=== PATIENT | male | born 1965 | race Two or more races ===

== ENCOUNTER → 2020-11-17 14:28 | Outpatient (BNVA) | payer OTHER, SELFPAY | PROVIDERS: PCP Physician Assistant; Visit Provider Urology | DX: N52.01 Erectile dysfunction due to arterial insufficiency (principal); R35.1 Nocturia | CPT/HCPCS: 99212 ==

== ENCOUNTER → 2020-11-18 14:43 | Outpatient (BNVA) | payer OTHER, SELFPAY | PROVIDERS: PCP Physician Assistant; Visit Provider Anesthesiology | DX: M51.16 Intervertebral disc disorders with radiculopathy, lumbar region (principal); M96.1 Postlaminectomy syndrome, not elsewhere classified; Z96.89 Presence of other specified functional implants; G89.4 Chronic pain syndrome; E66.01 Morbid (severe) obesity due to excess calories; G47.33 Obstructive sleep apnea (adult) (pediatric) | CPT/HCPCS: 99202 ==

== ENCOUNTER → 2020-12-03 10:38 | Outpatient (BNVA) | payer OTHER, SELFPAY | PROVIDERS: PCP Physician Assistant; Visit Provider Anesthesiology | DX: M51.16 Intervertebral disc disorders with radiculopathy, lumbar region (principal); M96.1 Postlaminectomy syndrome, not elsewhere classified; G89.4 Chronic pain syndrome; G47.33 Obstructive sleep apnea (adult) (pediatric); E66.01 Morbid (severe) obesity due to excess calories; Z96.89 Presence of other specified functional implants | CPT/HCPCS: 99212 ==

== ENCOUNTER 2020-12-17 08:10 | Outpatient (RCR) | payer OTHER, SELFPAY | END 2020-12-17 08:21 | disposition home or self-care (01) | LOC: HO.PAOS 08:10 | PROVIDERS: Referring Provider Anesthesiology; Visit Provider Counselor Mental Health | DX: F43.23 Adjustment disorder with mixed anxiety and depressed mood (principal) | CPT/HCPCS: 90791 ==

== ENCOUNTER → 2021-01-22 09:38 | Day surgery (SDC) | payer OTHER, SELFPAY ==
--- NOTE | ~2021-01-22 | FL_ITS ---
EXAMINATION: XR FLUOROSCOPY WITH IMAGES CLINICAL INFORMATION: Spinal stimulation trial. COMPARISON: None. TECHNIQUE: Fluoroscopy performed by Dr. Owen. Fluoroscopy time: 0.2 minutes DAP: 1.31 mGycm2 Images: 3 FINDINGS: On AP and lateral fluoroscopy, there are spinal electrodes positioned in the posterior epidural space posterior to T9 and T10 vertebrae. FL/FL guidance in OR IMPRESSION: Fluoroscopy guidance was provided to Dr. Owen for spinal stimulator trial.
[2021-01-22 09:57] VITALS: BMI 40.4
[2021-01-22 10:03] LABS: MANUAL DIFF FLAG NO
[2021-01-22 10:12] LABS: Basophils Absolute Auto 0.1 X10*3/uL (0.0-0.2); Basophils Percent Auto 0.8 % (0-2); Eosinophils Absolute Auto 0.2 X10*3/uL (0.0-0.4); Eosinophils Percent Auto 3.1 % (0-4); Hematocrit 50.4 % (42-52); Hemoglobin 16.9 g/dl (14.0-18.0); Imm Gran Abs Auto 0.03 X10*3/uL (0.00-0.03); Imm Gran Pct Auto 0.4 % (0.0-0.4); Lymphocytes Absolute Auto 2.6 X10*3/uL (1.2-4.9); Lymphocytes Percent Auto 33.3 % (20-40); Mean Corpuscular HGB Conc 33.5 g/dl (31.0-36.0); Mean Corpuscular Hemoglobin 28.4 pg (27.0-33.0); Mean Corpuscular Volume 84.7 fL (80-98); Mean Platelet Volume 10.5 fL (9.4-12.4); Monocytes Absolute Auto 0.8 X10*3/uL (0.1-1.2); Monocytes Percent Auto 9.7 % (2-11); Neutrophils Absolute Auto 4.1 X10*3/uL (2.0-8.3); Neutrophils Percent Auto 52.7 % (45-73); Platelet Count 237 X10*3/uL (160-400); Red Blood Count 5.95 X10*6/uL (4.60-5.80); Red Cell Distribution Width 14.7 % (11.0-16.0); White Blood Count 7.7 X10*3/uL (4.8-10.8)
[2021-01-22 10:18] VITALS: BP 152/106; PULSE 81; RESP 16; TEMP 36.9; O2SAT 95
[2021-01-22 10:19] VITALS: BP 131/92
[2021-01-22 10:27] LABS: Alanine Aminotransferase 37 U/L (0-40); Albumin Level 4.3 g/dL (3.5-5.0); Alkaline Phosphatase 87 U/L (39-117); Anion Gap 13 (12-20); Aspartate Amino Transferase 28 U/L (5-37); Bilirubin Total 0.3 mg/dL (0.0-1.0); Blood Urea Nitrogen 17 mg/dL (9-16); Calcium 9.2 mg/dL (8.4-10.2); Carbon Dioxide 27 mmol/L (22-29); Chloride 108 mmol/L (96-108); Cholesterol 191 mg/dL; Estimated Glomerular Filt Rate > 60; Glucose Fasting 88 mg/dL (60-99); HDL Cholesterol 28 mg/dL; Sodium 144 mmol/L (135-145); Total Protein 7.5 g/dL (6.5-8.0); Triglycerides 633 mg/dL
[2021-01-22 10:31] LABS: Estimated Average Glucose 111 mg/dL; Hemoglobin A1c % 5.5 %
--- NOTE | 2021-01-22 10:48 | P.CONAN_ITS ---
[facility] Active Problems Active Problems: All Active Problems (Updated 01/21/21 @ 14:29 by Kaiden ellis PA-C) Annual physical exam (Acute) Cervical stenosis of spinal canal (Acute) Obstructive sleep apnea (Acute) Morbid obesity (Acute) Chronic pain syndrome (Acute) Postlaminectomy syndrome (Acute) Nocturia more than twice per night (Acute) Erectile dysfunction due to arterial insufficiency (Acute) Asthma (Acute) Smoker (Acute) OPHELIA (obstructive sleep apnea) (Acute) Obese (Acute) Spinal cord stimulator status (Acute) Lumbar disc disease with radiculopathy (Acute) MDD (major depressive disorder) (Acute) Insomnia (Acute) Osteoarthritis (Acute) HTN (hypertension) (Acute) Past Medical History Medical History (Updated 01/21/21 @ 14:29 by Kaiden Bell PA-C) Chronic pain syndrome Hepatitis C Morbid obesity Obstructive sleep apnea Postlaminectomy syndrome Family History Family History (Updated 01/21/21 @ 14:26 by Kaiden Bell PA-C) Father Chronic mental illness Mother No problems noted. Maternal Grandmother No problems noted. Maternal Grandfather No problems noted. Paternal Grandmother No problems noted. Paternal Grandfather No problems noted. 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 Allergies Allergy/AdvReac Type Severity Reaction Status Date / Time No Known Allergies Allergy Verified 01/21/21 14:16 Home Medications Medication Instructions Recorded Confirmed Last Taken Type alprazolam 2 mg tablet mg PO 10/20/20 01/21/21 Unknown History Exam Exam Date and Time: January 22, 2021 1048 Height,Weight and Vital Signs: Height 6 ft Weight 135.171 kg Last Vital Signs Temp 98.4 F 01/22/21 10:18 Pulse 81 01/22/21 10:18 Resp 16 01/22/21 10:18 BP 131/92 H 01/22/21 10:19 Pulse Ox 95 01/22/21 10:18 Pertinent Lab Results Pertinent Lab Results: Laboratory Tests 01/22/21 01/22/21 01/22/21 09:25 09:25 09:25 WBC 7.7 RBC 5.95 H Hgb 16.9 Hct 50.4 MCV 84.7 MCH 28.4 MCHC 33.5 RDW 14.7 Plt Count 237 MPV 10.5 Immature Gran % (Auto) 0.4 Neut % (Auto) 52.7 Lymph % (Auto) 33.3 [place] % (Auto) 9.7 Eos % (Auto) 3.1 Baso % (Auto) 0.8 Lymph # (Auto) 2.6 [place] # (Auto) 0.8 Eos # (Auto) 0.2 Baso # (Auto) 0.1 Abs Immat Gran (auto) 0.03 Absolute Neuts (auto) 4.1 Absolute Nucleated RBC 0.000 Nucleated RBC % (auto) 0.0 Sodium 144 Potassium 4.0 Chloride 108 Carbon Dioxide 27 Anion Gap 13 BUN 17 H Creatinine 1.16 Estim Creat Clear Calc 100.0 Estimated GFR > 60 Fasting Glucose 88 Estimat Average Glucose 111 Hemoglobin A1c % 5.5 Calcium 9.2 Total Bilirubin 0.3 AST 28 ALT 37 Alkaline Phosphatase 87 Total Protein 7.5 Albumin 4.3 Triglycerides 633 Cholesterol 191 LDL Cholesterol, Calc TNP HDL Cholesterol 28
[2021-01-22 10:53] LABS: Creatinine Urine 291.48 mg/dL; Microalbum/Creatinine Ratio Ur 8.2 ug/mg cr
--- NOTE | 2021-01-22 12:40 | PC.NURSE ---
patients procedure was cancelled per md barbosa. patient off unit to or4 for xrays of back only. to be rescheduled.
--- NOTE | 2021-01-22 13:10 | PC.NURSE ---
patient was discharged due to cancellation of procedure. iv removed. drink provided and called for a ride. ambulated out of here with a work note as well per patients request.
== END ==
PROVIDERS: Absent Provider Physician Assistant; PCP Physician Assistant; Visit Provider Anesthesiology
DX: M96.1 Postlaminectomy syndrome, not elsewhere classified (principal); G89.4 Chronic pain syndrome; Z53.9 Procedure and treatment not carried out, unspecified reason; I10 Essential (primary) hypertension; J45.909 Unspecified asthma, uncomplicated; Z79.899 Other long term (current) drug therapy; F17.210 Nicotine dependence, cigarettes, uncomplicated
CPT/HCPCS: 36415; 76000; 80053; 80061; 82043; 83036; 85025; J0690

== ENCOUNTER → 2021-02-11 08:13 | Outpatient (BNVA) | payer OTHER, SELFPAY | PROVIDERS: PCP Physician Assistant; Visit Provider Surgery ==

== ENCOUNTER → 2021-02-24 16:18 | Outpatient (BNVA) | payer OTHER, SELFPAY | PROVIDERS: PCP Physician Assistant; Visit Provider Anesthesiology | DX: M51.16 Intervertebral disc disorders with radiculopathy, lumbar region (principal); M96.1 Postlaminectomy syndrome, not elsewhere classified; G89.4 Chronic pain syndrome; G47.33 Obstructive sleep apnea (adult) (pediatric); E66.01 Morbid (severe) obesity due to excess calories; Z96.89 Presence of other specified functional implants; Z79.899 Other long term (current) drug therapy | CPT/HCPCS: 99212 ==

== ENCOUNTER 2021-03-05 08:11 | Outpatient (REF) | payer OTHER, SELFPAY ==
--- NOTE | ~2021-03-05 | XR_ITS ---
EXAMINATION: XR CHEST CLINICAL INFORMATION: Essential hypertension COMPARISON: None TECHNIQUE: 2 views of the chest were obtained. FINDINGS: Cardiac silhouette is normal in size. The lungs are well aerated. There is mild asymmetric elevation of the right hemidiaphragm. There is no lobar consolidation. No pleural effusion or pneumothorax. Mild scoliotic and degenerative changes of the spine. Spinal stimulator leads are partially visualized. XR/XR chest 2V IMPRESSION: No acute pulmonary pathology.
--- NOTE | 2021-03-05 09:27 | ECG_ITS ---
Test Reason : HTN Blood Pressure : / mmHG Vent. Rate : 080 BPM Atrial Rate : 080 BPM P-R Int : 162 ms QRS Dur : 090 ms QT Int : 386 ms P-R-T Axes : 022 -04 046 degrees QTc Int : 445 ms Normal sinus rhythm Cannot rule out inferior infarct Abnormal ECG No previous ECGs available Referred By: Bj Avila Electronically Signed By:Solomon Baker
[2021-03-05 10:18] LABS: MANUAL DIFF FLAG NO
[2021-03-05 10:42] LABS: Basophils Absolute Auto 0.1 X10*3/uL (0.0-0.2); Basophils Percent Auto 0.9 % (0-2); Eosinophils Absolute Auto 0.2 X10*3/uL (0.0-0.4); Eosinophils Percent Auto 3.9 % (0-4); Hematocrit 49.3 % (42-52); Hemoglobin 16.5 g/dl (14.0-18.0); Imm Gran Abs Auto 0.02 X10*3/uL (0.00-0.03); Imm Gran Pct Auto 0.4 % (0.0-0.4); Lymphocytes Percent Auto 36.4 % (20-40); Mean Corpuscular HGB Conc 33.5 g/dl (31.0-36.0); Mean Corpuscular Hemoglobin 28.2 pg (27.0-33.0); Mean Corpuscular Volume 84.3 fL (80-98); Monocytes Absolute Auto 0.6 X10*3/uL (0.1-1.2); Monocytes Percent Auto 10.1 % (2-11); Neutrophils Absolute Auto 2.7 X10*3/uL (2.0-8.3); Neutrophils Percent Auto 48.3 % (45-73); Platelet Count 209 X10*3/uL (160-400); Red Blood Count 5.85 X10*6/uL (4.60-5.80); Red Cell Distribution Width 14.4 % (11.0-16.0); White Blood Count 5.6 X10*3/uL (4.8-10.8)
[2021-03-05 10:48] LABS: Estimated Average Glucose 108 mg/dL; Hemoglobin A1C 150.9345 umol/L; Hemoglobin A1c % 5.4 %
[2021-03-05 11:04] LABS: Alanine Aminotransferase 52 U/L (0-40); Albumin Level 4.3 g/dL (3.5-5.0); Alkaline Phosphatase 72 U/L (39-117); Anion Gap 15 (12-20); Aspartate Amino Transferase 29 U/L (5-37); Bilirubin Total 0.6 mg/dL (0.0-1.0); Blood Urea Nitrogen 26 mg/dL (9-16); C Reactive Protein 0.31 mg/dL (< or = 0.50); Calcium 9.2 mg/dL (8.4-10.2); Carbon Dioxide 21 mmol/L (22-29); Chloride 106 mmol/L (96-108); Cholesterol 189 mg/dL; Estimated Glomerular Filt Rate > 60; Glucose Random 100 mg/dL (60-115); HDL Cholesterol 27 mg/dL; Potassium 3.8 mmol/L (3.3-5.1); Sodium 138 mmol/L (135-145); Total Protein 7.2 g/dL (6.5-8.0); Triglycerides 467 mg/dL
[2021-03-05 11:10] LABS: Ferritin 15 ng/mL (20-250)
[2021-03-05 11:36] LABS: Folate 7.3 ng/mL (> or = 4.0); Vitamin B12 293 pg/mL (200-900)
[2021-03-06 09:52] LABS: Insulin Level Total 48.9 uIU/mL
[2021-03-08 23:41] LABS: Zinc 82 mcg/dL (60-130)
[2021-03-09 11:37] LABS: Calcium (PTHI) 9.1 mg/dL (8.6-10.3); PTHI 19 pg/mL (14-64)
[2021-03-10 13:21] LABS: Vitamin A 42 mcg/dL (38-98)
[2021-03-11 07:26] LABS: Vitamin B1 9 nmol/L (8-30)
== END 2021-03-05 08:12 | disposition home or self-care (01) ==
LOC: HO.LAB 08:11
PROVIDERS: PCP Physician Assistant; Visit Provider Surgery
DX: E66.01 Morbid (severe) obesity due to excess calories (principal); Z68.39 Body mass index [BMI] 39.0-39.9, adult; M19.90 Unspecified osteoarthritis, unspecified site; J45.909 Unspecified asthma, uncomplicated; I10 Essential (primary) hypertension; G47.33 Obstructive sleep apnea (adult) (pediatric); G47.00 Insomnia, unspecified
CPT/HCPCS: 36415; 71046; 80053; 80061; 82306; 82607; 82728; 82746; 83036; 83525; 83970; 84425; 84443; 84590; 84630; 85025; 86140; 93005

== ENCOUNTER 2021-03-12 08:53 | Outpatient (REF) | payer OTHER, SELFPAY ==
[2021-03-13 15:12] LABS: H Pylori Breath Test NOT DETECTED (NOT DETECTED)
== END 2021-03-12 08:54 | disposition home or self-care (01) ==
LOC: HO.LNP 08:53
PROVIDERS: Surgery; PCP Physician Assistant; Visit Provider Dietitian, Registered
DX: E66.9 Obesity, unspecified (principal); Z68.39 Body mass index [BMI] 39.0-39.9, adult; Z71.3 Dietary counseling and surveillance
CPT/HCPCS: 83013; 97802; 99211

== ENCOUNTER 2021-03-25 18:44 | Outpatient (REF) | payer OTHER, SELFPAY ==
--- NOTE | ~2021-03-25 | MR_ITS ---
MR CERVICAL SPINE WITHOUT CONTRAST CLINICAL INFORMATION: Spinal stenosis/cervical region. COMPARISON: None available. TECHNIQUE: MRI of the cervical spine was obtained using routine sequences without contrast. FINDINGS: Straightening the cervical lordosis. The vertebral body heights are maintained. Mild disc volume loss at C3-C4 and C6-C7. There is no bone marrow edema. There are no acute fractures. The craniocervical junction is unremarkable. Craniocervical junction is unremarkable. The partially imaged intracranial compartment is unremarkable. There is no cord signal abnormality. The cervical arterial flow voids are maintained. There are no significant extraspinal soft tissue findings. C2-C3: Disc osteophyte eccentric to the left mildly narrows the central canal. Advanced uncovertebral joint hypertrophy and hypertrophic facet arthropathy result in moderate left-sided foraminal stenosis. C3-C4: Disc osteophyte mildly narrows the central canal. Advanced uncovertebral joint hypertrophy and hypertrophic facet arthropathy result in severe left-sided foraminal stenosis and mild right-sided foraminal stenosis. C4-C5: Disc osteophyte flattens the ventral cord, resulting in mild to moderate central canal stenosis. Advanced uncovertebral joint hypertrophy and hypertrophic facet arthropathy result in moderate to severe bilateral foraminal stenosis. C5-C6: Disc osteophyte flattens the ventral cord, resulting in mild to moderate central canal stenosis. Advanced uncovertebral joint hypertrophy and hypertrophic facet arthropathy result in severe left foraminal stenosis. Mild right foraminal encroachment. C6-C7: Disc osteophyte mildly narrows the central canal. Advanced uncovertebral joint hypertrophy and hypertrophic facet arthropathy result in severe left-sided foraminal stenosis. C7-T1: Disc osteophyte mildly narrows the central canal. There is a left foraminal disc protrusion that results in severe left-sided foraminal stenosis with compression of the exiting left C8 nerve root. Mild right foraminal stenosis. At T3-T4, there is a partially imaged right paracentral/right foraminal disc protrusion that mildly narrows the central canal and that results in moderate to severe right-sided foraminal stenosis. MR/MR cervical spine wo con IMPRESSION: - Multilevel cervical spondylosis. Multifactorial degenerative changes result in mild to moderate central canal stenosis and flattening of the cervical spinal cord at the C4-C5 and C5-C6 levels. Spondylitic changes also result in moderate left C2-C3, severe left C3-C4, moderate to severe bilateral C4-C5, severe left C5-C6, severe left C6-C7, and severe left C7-T1 foraminal stenosis. There is a soft left foraminal disc protrusion resulting in severe left foraminal stenosis at C7-T1. - At T3-T4, there is a partially imaged right paracentral/right foraminal disc protrusion that mildly narrows the central canal and that results in moderate to severe right-sided foraminal stenosis.
== END 2021-03-25 18:45 | disposition home or self-care (01) ==
LOC: HO.MRI 18:44
PROVIDERS: PCP Physician Assistant; Visit Provider Anesthesiology
DX: M48.02 Spinal stenosis, cervical region (principal)
CPT/HCPCS: 72141

== ENCOUNTER → 2021-03-26 08:18 | Outpatient (BNVA) | payer OTHER, SELFPAY | PROVIDERS: PCP Physician Assistant; Visit Provider Surgery ==

== ENCOUNTER → 2021-03-31 08:08 | Outpatient (BNVA) | payer OTHER, SELFPAY | PROVIDERS: PCP Physician Assistant; Visit Provider Dietitian, Registered ==

== ENCOUNTER → 2021-04-20 08:04 | Outpatient (BNVA) | payer OTHER, SELFPAY | PROVIDERS: PCP Physician Assistant; Visit Provider Surgery ==

== ENCOUNTER → 2021-04-21 13:40 | Outpatient (REF) | payer OTHER, SELFPAY | LOC: HO.SL 13:40 | PROVIDERS: PCP Physician Assistant; Visit Provider Physician Assistant | DX: G47.33 Obstructive sleep apnea (adult) (pediatric) (principal); E66.9 Obesity, unspecified | CPT/HCPCS: 95806 ==

== ENCOUNTER → 2021-04-23 09:57 | Outpatient (REF) | payer OTHER, SELFPAY ==
--- NOTE | ~2021-04-23 | NM_ITS ---
Lexiscan Myocardial perfusion study Indication: Preoperative evaluation, assess for coronary disease and ischemia Technique: The patient was brought in for a Lexiscan perfusion study on 04/23/2021 and was injected 0.4 mg of Lexiscan intravenously. Within a minute of this injection 45 mCi of sestamibi was given intravenously. Images were obtained using the SPECT gamma camera interlaced with the gating device. Images were obtained in supine position. Resting perfusion study was performed on 04/29/2021. Patient was administered 45 mCi of sestamibi intravenously at rest. Images were then obtained in supine position. Total DLP 169mGy-cm. Images were processed with the software and compared side to side in short axis, horizontal long axis and vertical long axis views. Findings: Raw acquisition was reviewed. The stress perfusion study showed diminished tracer uptake along the basal to mid inferior and inferolateral wall. With CT attenuation correction, this improves significantly suggesting diaphragmatic attenuation artifact. The gated study shows normal LV systolic function with calculated LVEF of 61%. LV cavity is normal in size. The gated study shows normal wall thickening and contraction of segments. Resting study shows diminished tracer uptake along the inferior and inferolateral wall. With CT attenuation correction, there is improvement and hence suggesting diaphragmatic attenuation artifact. Gating at rest reveals normal wall motion with ejection fraction at 70%. The findings are consistent with fixed perfusion defect in the basal to mid inferior and inferolateral wall suspected to be from diaphragmatic artifact. No reversible defects. NM/NM iraida perf SPECT rest & str Impression: 1. Myocardial perfusion imaging study shows no evidence of any ischemia or infarction. Likely normal perfusion. 2. Gated LVEF is 61% during stress and 70% during rest. 3. Transient ischemic dilatation not present. EKG component of the test reported separately.
--- NOTE | 2021-04-23 10:02 | CA_ITS ---
Acquisition Time: 2021-04-23 10:30:40 Total Exercise Time: 00:02:00 Test Indications: Pre-Op Evaluation, SOB, hyperten Medications: see chart Protocol: LEXISCAN Max HR: 083 BPM 50% of Pred: 163 BPM Max BP: 110/078 mmHG Max Work Load: 1.0 METS Pharamcological stress test with Lexiscan injection, while sitting and kicking his legs, without anginal symptoms, without arrythmia, with normotensive response to injection, with nondiagnostic EKG for ischemia. Nuclear images pending. Test reviewed with Dr Becerra. Referred By: Bj Avila Overread By: RICHI HALL
== END ==
LOC: HO.CARD 09:57
PROVIDERS: PCP Physician Assistant; Visit Provider Surgery
DX: Z01.818 Encounter for other preprocedural examination (principal); R94.31 Abnormal electrocardiogram [ECG] [EKG]; R06.02 Shortness of breath; I10 Essential (primary) hypertension
CPT/HCPCS: 78452; 93017; 97803; A9500; J0280; J2785

== ENCOUNTER → 2021-04-30 13:09 | Outpatient (REF) | payer OTHER, SELFPAY ==
--- NOTE | 2021-04-30 13:12 | CA_ITS ---
Transthoracic Echocardiogram Patient (Last, First, Middle): Miguel Whiting, Gender: Male Date of : 1965 Age: 55 Procedure Date: 04/30/2021 Procedure Type: Transthoracic Echocardiogram Location: OP Height: 182.88 cm Weight: 136.08 kg BSA: 2.53 m2 Heart Rate: bpm BP: 140 / 70 mmHg Bakelite Molder: ELISE Referring MD: Bj Avila MD Symptoms: R94.31 - Abnormal electrocardiogram [ECG] [EKG] Study Quality: Fair/contrast ECG Rhythm: Sinus Conclusions: - The left ventricular systolic function is normal. The calculated ejection fraction is 70% by biplane method. - There is moderately increased left ventricular wall thickness. - No obvious valvular pathology seen on this study. - There is mild dilatation of the ascending aorta measuring 3.90 cm. Findings Procedure Information Contrast agent, definity, is being given per protocol without apparent complications. Left Ventricle Normal left ventricular cavity size. There is moderately increased left ventricular wall thickness. The left ventricular systolic function is normal. The calculated ejection fraction is 70% by biplane method. There is no evidence of regional wall motion abnormalities. Diastolic function is normal for age. E/E prime ratio is <8, consistent with normal filling pressures. Right Ventricle Normal right ventricular cavity size. There is low normal right ventricular systolic function. Atria Both atria are normal in size. Aortic Valve There is a normal trileaflet aortic valve. There is no aortic valve stenosis. There is no aortic valve regurgitation. Mitral Valve The mitral valve appears normal. There is no mitral valve regurgitation. There is no mitral valve stenosis. Pulmonic Valve The pulmonic valve was not well visualized. Tricuspid Valve Normal tricuspid valve structure. There is trace tricuspid valve regurgitation. The pulmonary artery systolic pressure is normal. Great Vessels There is mild dilatation of the ascending aorta measuring 3.90 cm. Venous The inferior vena cava is normal in size and collapses greater than 50% with inspiration. Pericardium/Pleural There is no evidence of pericardial effusion. Prior Study Comparison No prior study available for comparison. Recommendations, Care & Conclusions No obvious valvular pathology seen on this study. Measurements 2D Linear Measurements IVSd: 1.42 0.6-0.9/0.6-1.0 cm LVIDd: 4.61 3.9-5.3/4.2-5.9 cm LVIDd Index: 1.82 2.4-3.2/2.2-3.1 cm/m2 LVIDs: 3.05 2.0-3.6 cm LVPWd: 1.23 0.7-1.1 cm Ao Root: 4.20 2.1-3.5 cm LA Diam: 4.20 2.7-3.8/3.0-4.0 cm LAIDs Index: 1.66 1.5-2.3 cm/m2 LV Mass: 296.07 67-162/88-224 g LV Mass Index: 117.02 43-95/49-115 g/m2 LVOT Diam: 2.20 3.0+(-)1.3 cm 2D Systolic Function EF 4C: 66.50 >55% EF 2C: 71.70 >55% EF BiP: 69.80 >55% Mitral Valve MV Pk E: 0.48 MV PK A: 0.77 MV Decel Time: 298.00 E/A: 0.60 E'Lateral: 10.30 E'Medial: 5.00 E/E' Med: 9.70 E/E' Lat: 4.70 PHT: 87.00 MVA PHT: 2.53 Decel [place]: 1.62 Aortic Valve AoV Pk Paulino: 1.43 AoV Mn Paulino: 1.08 AoV VTI: 0.27 AoV Pk Grad: 8.00 Aov Mn Grad: 5.00 SHANDRA Cont.VTI: 3.46 LVOT LVOT Pk Paulino: 1.45 LVOT Mn Paulino: 0.96 LVOT VTI: 0.25 LVOT Pk Grad: 8.00 LVOT Mn Grad: 4.00 LVOT Diam: 2.20 LVOT Area: 3.80 Diastolic Function MV Pk E: 0.48 MV Pk A: 0.77 E/A: 0.60 E'Medial: 5.00 E/E' Med: 9.70 E' Laterial: 10.30 E/E' Lat: 4.70 Tricuspid Valve TR Pk Paulino: 2.13 TR Pk Grad: 18.00 RA Press: 3.00 RVSP: 21.00 Great Vessels Aorta Ao Root-2D: 4.20 2.0-3.7 cm Ao Asc: 3.90 2.1-3.4 cm Updated in Other Vendor System with Status of Final Stepan Vann MD electronically signed on 05/02/2021 12:25:14 PM with status of Final
== END ==
LOC: HO.CARD 13:09
PROVIDERS: PCP Physician Assistant; Visit Provider Surgery
DX: Z01.818 Encounter for other preprocedural examination (principal); R06.02 Shortness of breath; I10 Essential (primary) hypertension; R94.31 Abnormal electrocardiogram [ECG] [EKG]
CPT/HCPCS: 93306; Q9957

== ENCOUNTER → 2021-05-26 12:56 | Outpatient (BNVA) | payer OTHER, SELFPAY | PROVIDERS: PCP Physician Assistant; Referring Provider Physician Assistant; Visit Provider Surgery ==

== ENCOUNTER 2021-08-06 09:41 | Day surgery (SDC) | payer OTHER, SELFPAY ==
[2021-08-03 09:54] VITALS: BMI 38.2
--- NOTE | 2021-08-05 09:32 | P.CONAN_ITS ---
Documented by User: Yuni Lua NP 08/05/21 09:34 HPI - Anesthesia Eval Consult details Narrative: 55yo M for ?Lumbar Spinal Cord Stimulator Revision, Removal & Replacement spinal stim implant 01/2020 [facility] [place] Active Problems Active Problems: All Active Problems (Updated 08/03/21 @ 09:50 by Landy Shipley RN) HTN (hypertension) (Acute) Osteoarthritis (Acute) Insomnia (Acute) MDD (major depressive disorder) (Acute) Lumbar disc disease with radiculopathy (Acute) Spinal cord stimulator status (Acute) Obese (Acute) OPHELIA (obstructive sleep apnea) (Acute) Smoker (Acute) Asthma (Acute) Erectile dysfunction due to arterial insufficiency (Acute) Nocturia more than twice per night (Acute) Cervical stenosis of spinal canal (Acute) Annual physical exam (Acute) Obesity (Acute) BMI 39.0-39.9,adult (Acute) Vitamin B12 deficiency (Acute) Abnormal EKG (Acute) Adjustment disorder, unspecified (Acute) BMI 38.0-38.9,adult (Acute) Acute back pain (Acute) Obstructive sleep apnea (Acute) Morbid obesity (Acute) Chronic pain syndrome (Acute) Postlaminectomy syndrome (Acute) Past Medical History Medical History Chronic pain syndrome Hepatitis C Hx MRSA infection Morbid obesity Obstructive sleep apnea Postlaminectomy syndrome Family History Family History Father Chronic mental illness Mental health disorder Mother No problems noted. Maternal Grandmother No problems noted. Maternal Grandfather No problems noted. Paternal Grandmother No problems noted. Paternal Grandfather No problems noted. Sister Cervical cancer Surgical History Surgical History History of esophagogastroduodenoscopy (EGD) History of laminectomy History of surgery Hx of colonoscopy S/P insertion of spinal cord stimulator Social History Social History Household Members: Spouse Housing: House Alcohol intake: never Patient Tobacco Use Status: Current everyday Tobacco user Tobacco use type: Cigarette Cigarettes Per Day: 1 Years Smoked: 15 e-Cigarette/Vaping Use: Never Used Second Hand Smoke Exposure: No Are you DNR?: No Advance Directives: No Advance Directives Information Provided: No Advance Directives on File: No Current occupational status: employed 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[employer] 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 Allergies Allergy/AdvReac Type Severity Reaction Status Date / Time No Known Allergies Allergy Verified 06/29/21 15:11 Home Medications Medication Instructions Recorded Confirmed Last Taken Type alprazolam 2 mg tablet 2 mg PO BEDTIME PRN 10/20/20 08/03/21 Unknown History Exam Exam Date and Time: August 05, 2021 0932 Height,Weight and Vital Signs: Height 6 ft 1 in Weight 131.542 kg Pertinent Lab Results Pertinent Lab Results: Laboratory Tests 03/05/21 03/05/21 09:45 09:45 WBC 5.6 Hgb 16.5 Hct 49.3 Plt Count 209 Sodium 138 Potassium 3.8 Chloride 106 Carbon Dioxide 21 L BUN 26 H D Creatinine 0.98 Narrative Narrative: NM iraida perf SPECT rest & str 04/2021 Impression: ? 1.? Myocardial perfusion imaging study shows no evidence of any ischemia or infarction. Likely normal perfusion. 2.? Gated LVEF is 61% during stress and 70% during rest. 3. Transient ischemic dilatation not present. ? EKG component of the test nondiagnostic EKG for ischemia EKG 02/2021 Vent. Rate : 080 BPM ? ? Atrial Rate : 080 BPM ?? P-R Int : 162 ms? QRS Dur : 090 ms ? ? QT Int : 386 ms ? ? ? P-R-T Axes : 022 -04 046 degrees ?? QTc Int : 445 ms ? Normal sinus rhythm Cannot rule out inferior infarct Abnormal ECG No previous ECGs available ECHO 04/2021 Conclusions: - The left ventricular systolic function is normal.? The ? calculated ejection fraction is 70% by biplane method. ? - There is moderately increased left ventricular wall thickness. - No obvious valvular pathology seen on this study.? - There is mild dilatation of the ascending aorta measuring 3.90 cm.?? Assessment and Plan Assessment Anesthesia Assessment: Chart Reviewed Documented by User: Farzana Pollard MD 08/06/21 13:13 PMF Past Medical History Medical History Chronic pain syndrome Hepatitis C Hx MRSA infection Morbid obesity Obstructive sleep apnea Postlaminectomy syndrome Family History Family History Father Chronic mental illness Mental health disorder Mother No problems noted. Maternal Grandmother No problems noted. Maternal Grandfather No problems noted. Paternal Grandmother No problems noted. Paternal Grandfather No problems noted. Sister Cervical cancer Surgical History Surgical History History of esophagogastroduodenoscopy (EGD) History of laminectomy History of surgery Hx of colonoscopy S/P insertion of spinal cord stimulator History of Problems with Anesthesia: No Social History Social History Household Members: Spouse Housing: House Alcohol intake: never Patient Tobacco Use Status: Current everyday Tobacco user Tobacco use type: Cigarette Cigarettes Per Day: 1 Years Smoked: 15 e-Cigarette/Vaping Use: Never Used Second Hand Smoke Exposure: No Are you DNR?: No Advance Directives: No Advance Directives Information Provided: No Advance Directives on File: No Current occupational status: employed 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[employer] 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 Allergies Allergy/AdvReac Type Severity Reaction Status Date / Time No Known Allergies Allergy Verified 06/29/21 15:11 Home Medications Medication Instructions Recorded Confirmed Last Taken Type alprazolam 2 mg tablet 2 mg PO BEDTIME PRN 10/20/20 08/03/21 Unknown History Exam Airway Mallampati Class: III TM Dist: >3cm Neck ROM: Full Loose/Missing/Broken Teeth: No Heart: RRR Lungs: CTA Assessment and Plan Assessment Anesthesia Assessment: Anesthesia Plan Discussed Final Anesthetic Review History of Problems with Anesthesia: No NPO: Yes ASA Class: II Final Preanesthetic Review: Meds/Allgs Chart Reviewed and Consent Obtained/Reviewed Patient Risk: Low Procedure Risk: Intermediate Anesthetic Plan Anesthetic Plan: MAC: Disposition: Standard PACU
--- NOTE | 2021-08-05 21:06 | MHC.SHP ---
Pre-Procedural Eval Section A Date of Service: 08/05/21 The patient is an INPATIENT: No Changes since office visit: Yes Patient answered all questions The History & Physical has been completed within 30 days and I have reviewed it.: No Section B Chief Complaint: spinal cord stimulator status Details of Present Illness: as above Allergies: Allergies Allergy/AdvReac Type Severity Reaction Status Date / Time No Known Allergies Allergy Verified 06/29/21 15:11 Review of Systems Sugical H&P ROS: Negative: Constitution, Cardiovascular, Respiratory, Neurological, Psychiatric, Hem-Onc, Allergic/Immunologic, Gastrointestinal, Genitourinary, Musculoskeletal, Integumentary, Endocrine and Eyes/Ears/Nose/Throat Exam Surgical H&P Exam: Normal: HEENT, Normal: Heart, Normal: Lungs, Normal: Extremities, Normal: Abdomen, Normal: Skin and Normal: Neurological Plan Diagnosis/Plan: Unchanged I have reviewed the history and physical and performed a pertinent physical examination on my patient. No changes have occurred unless specified.
--- NOTE | 2021-08-05 21:07 | P.OP_ITS ---
Operative Note Operative Note Date of Service: 08/06/21 Narrative: Miguel is very pleasant 55 years old male who presented in my office with complains poorly functioning battery of spinal cord stimulator Medtronics. He reports it does not relieve his pain. I offered him to remove the battery and replace it with Nevro machine. He came today to the operating room to do revision of the old battery and replacement with the Nevro HF10 technology battery.? After a in explaining informed consent the patient was taking to the operating room where HE was positioned prone ON the OR table.? C-arm was brought of the operating field and of the spinal cord stimulating system was examined under C-arm view.? The appropriate position of the leads was noted in the posterior epidural space.? The leads were in the projection of T9-T10 vertebra.? The position of the battery was in the left buttock. After that the patient was sedated a and time-out was performed.? Time-out was delineating name of the patient date of of the patient, side of the surgery, site of the surgery, risk of fire, risk of DVT, need for antibiotics.? The patient received 3 g of cefazolin IV before the onset of the surgery 20 minutes before the incision. His lower back and left buttock was prepped with . DuraPrep and draped with full body drape including Ioban film.? The previous scar of implantation of the old battery was located in the area of the left buttock.? The area of the scar was infiltrated with mixture of lidocaine 2% and Marcaine 0.5%. After that incision was performed along side the previous scar, performed thorough hemostasis was obtained using Bovie device.? Care was taken not to employ Bovie next to the leads or battery. After that the battery and stimulating leads were located under subcutaneous tissues there were freed from adhesions and the battery was delivered to the maris face of the skin.? The hexagonal screws were used to free the leads from the battery. The battery was removed. The extension system for the connection of the Nevro battery to the Medtronic leads was employed. It was fixed with hexagonal screws. After that the extension sets were inserted into the Nevro battery impedance was checked and they were fixed with hexagonal screwdriver.? The battery was positioned inside of the pocket and impedance was checked. It was deemed to be satisfactory. After that the wound was irrigated and anchoring screws were applied to most superior medial and most superior lateral corners of the pocket. After that the leads and the extension systems were gathered behind the body of the battery, the battery was dislodged inside of the pocket, the anchoring sutures were advanced into the orifices on the body of the battery and the anchoring sutures were tied. Irrigation was repeated again. After that 0 Polysorb suture was used to close the wound. 2-0 Polysorb suture was used to approximate the level of the skin the channing were applied to the skin. Bacitracin ointment was applied to the staple levels. Sterile dressing with 4 x 4 was applied using Medipore tape. The patient was tolerating procedure well he was taking outside of the operating room to recovery room where he recovered uneventfully the interconnecting ....... New battery was obtained sterilely.? It was connected to the existing screws.? The care was taking to superimpose the electrodes on the leads to connection to the battery.? The impedance was read and it was demonstrated good connections.? Thorough irrigation was performed into the wound and hemostasis was checked.? After that to anchoring sutures 1 in the center of the top of the wound and 1 to most lateral corner of the wound were applied using Tycron suture.? The electrode leads were gathered behind the body of the battery and battery and electrodes were inserted into the wound pocket.? Tycron sutures were tied. After that irrigation was repeated, thorough hemostasis was checked and wound was closed using 0 Polysorb to close the wound, 2-0 Polysorb to approximate the level of the skin, and channing to close the level of the skin.? Bacitracin ointment was applied to the staple line.? After that sterile dressing for by forwards applied using Medipore tape. Upon completion of the procedure the patient was taking outside of the operating room, she went for recovery in the PACU.? There were no immediate complications.
--- NOTE | ~2021-08-06 | FL_ITS ---
EXAMINATION: XR FLUOROSCOPY WITH IMAGES CLINICAL INFORMATION: Spinal stimulator revision. COMPARISON: None. TECHNIQUE: Fluoroscopy performed by Dr. Brian Owen. Fluoroscopy time: 0.0 minutes DAP: 1.68 Gycm2 Images: 5 FINDINGS: There is pedicular screws on the right from L2 L4 vertebra with interconnecting raina. There is mild scoliosis. There are spinal stimulators inserted at the T11-T12 disc level with the electrodes positioned posterior to T9 and T10 vertebra. FL/FL guidance in OR IMPRESSION: Fluoroscopy was provided to referring physician for revision of spinal stimulators.
[2021-08-06 09:58] VITALS: BP 118/80; PULSE 70; RESP 18; TEMP 36.3; O2SAT 96
[2021-08-06] MEDS: Lactated Ringers 1,000 ML 100 ML IVCONT (10:21)
[2021-08-06 14:10] VITALS: BP 118/82; PULSE 86; RESP 20; TEMP 36.2; O2SAT 96
--- NOTE | 2021-08-06 14:11 | P.BOP_ITS ---
Brief Operative Note Date of Service: 08/06/21 Pre-op diagnosis: Postlaminectomy syndrome chronic pain syndrome Post-op diagnosis: same Procedure: Removal and replacement of spinal cord stimulator battery instead of Medtronics Nevro battery. Implants: Nevro battery Surgeon: Brian Owen MD Anesthesia: MAC Was an Care Program Resident used for this Procedure?: No Estimated blood loss (mL): 11 Pathology: none sent Condition: stable Disposition: PACU
[2021-08-06] MEDS: oxyCODONE HCl Immed Release 5 MG TABLET 10 MG PO (14:21)
[2021-08-06] MEDS: fentaNYL citrate/PF 100 MCG/2 ML VIAL 50 MCG IVPUSH ×2 (14:23→14:34)
[2021-08-06 14:25] VITALS: BP 115/57; PULSE 74; RESP 20; O2SAT 96
[2021-08-06 14:28] VITALS: BP 119/76; PULSE 72; RESP 18; O2SAT 97
[2021-08-06 14:39] VITALS: BP 119/76; PULSE 79; RESP 18; O2SAT 97
[2021-08-06 14:46] VITALS: BP 110/76; PULSE 74; RESP 18; TEMP 36.2; O2SAT 98
== END 2021-08-06 15:12 | disposition home or self-care (01) ==
PROVIDERS: PCP Physician Assistant; Visit Provider Anesthesiology
PROC: (CPT 63685; principal; 2021-08-06 11:10)
DX: M96.1 Postlaminectomy syndrome, not elsewhere classified (principal); G89.4 Chronic pain syndrome; M51.16 Intervertebral disc disorders with radiculopathy, lumbar region; Z96.89 Presence of other specified functional implants
CPT/HCPCS: 63685; C1778; J0690; J2250; J3010; J3370

== ENCOUNTER → 2021-08-12 10:08 | Outpatient (BNVA) | payer OTHER, SELFPAY | PROVIDERS: PCP Physician Assistant; Visit Provider Anesthesiology | DX: M51.16 Intervertebral disc disorders with radiculopathy, lumbar region (principal); M96.1 Postlaminectomy syndrome, not elsewhere classified; G89.4 Chronic pain syndrome; E66.01 Morbid (severe) obesity due to excess calories; G47.33 Obstructive sleep apnea (adult) (pediatric); Z96.89 Presence of other specified functional implants | CPT/HCPCS: 99212 ==

== ENCOUNTER → 2021-08-19 09:58 | Outpatient (BNVA) | payer OTHER, SELFPAY | PROVIDERS: PCP Physician Assistant; Visit Provider Anesthesiology | DX: M51.16 Intervertebral disc disorders with radiculopathy, lumbar region (principal); M96.1 Postlaminectomy syndrome, not elsewhere classified; G89.4 Chronic pain syndrome; E66.01 Morbid (severe) obesity due to excess calories; G47.33 Obstructive sleep apnea (adult) (pediatric); Z96.89 Presence of other specified functional implants | CPT/HCPCS: 99212 ==

== ENCOUNTER → 2021-09-20 19:37 | Outpatient (REF) | payer OTHER, SELFPAY | LOC: HO.SL 19:37 | PROVIDERS: PCP Physician Assistant; Visit Provider Physician Assistant | DX: G47.33 Obstructive sleep apnea (adult) (pediatric) (principal) | CPT/HCPCS: 95811 ==

== ENCOUNTER 2021-11-18 12:02 | Outpatient (REF) | payer OTHER, SELFPAY ==
[2021-11-18 13:03] LABS: Hematocrit 40.8 % (42.0-52.0); Hemoglobin 12.7 g/dl (14.0-18.0); Mean Corpuscular HGB Conc 31.1 g/dl (31.0-36.0); Mean Corpuscular Hemoglobin 24.2 pg (27.0-33.0); Mean Corpuscular Volume 77.7 fL (80.0-98.0); Mean Platelet Volume 10.8 fL (9.4-12.4); Platelet Count 225 X10*3/uL (160-400); Red Blood Count 5.25 X10*6/uL (4.60-5.80); Red Cell Distribution Width 17.9 % (11.0-16.0); White Blood Count 6.5 X10*3/uL (4.8-10.8)
[2021-11-18 13:23] LABS: Blood Urea Nitrogen 23 mg/dL (9-16); Estimated Glomerular Filt Rate > 60
[2021-11-18 13:25] LABS: Estimated Average Glucose 111 mg/dL; Hemoglobin A1c % 5.5 %
[2021-11-18 13:26] LABS: Alanine Aminotransferase 31 U/L (0-40); Albumin Level 4.1 g/dL (3.5-5.0); Alkaline Phosphatase 60 U/L (39-117); Anion Gap 10 (12-20); Aspartate Amino Transferase 21 U/L (5-37); Bilirubin Total 0.5 mg/dL (0.0-1.0); Blood Urea Nitrogen 23 mg/dL (9-16); Calcium 9.2 mg/dL (8.4-10.2); Carbon Dioxide 26 mmol/L (22-29); Chloride 108 mmol/L (96-108); Cholesterol 168 mg/dL; Estimated Glomerular Filt Rate > 60; Glucose Fasting 94 mg/dL (60-99); HDL Cholesterol 29 mg/dL; LDL Cholesterol Calculated 74 mg/dl; Potassium 4.2 mmol/L (3.3-5.1); Sodium 140 mmol/L (135-145); Total Protein 6.7 g/dL (6.5-8.0); Triglycerides 327 mg/dL
[2021-11-18 13:46] LABS: TSH reflex Free T4 1.27 uIU/mL (0.32-4.0)
[2021-11-23 20:55] LABS: Testosterone, Free 71.7 pg/mL (35.0-155.0); Testosterone, Total 316 ng/dL (250-1100)
== END 2021-11-18 12:03 | disposition home or self-care (01) ==
LOC: HO.LAB 12:02
PROVIDERS: Urology; PCP Physician Assistant; Visit Provider Physician Assistant
DX: M96.1 Postlaminectomy syndrome, not elsewhere classified (principal); G89.4 Chronic pain syndrome; N52.01 Erectile dysfunction due to arterial insufficiency; I10 Essential (primary) hypertension; E66.09 Other obesity due to excess calories; M48.02 Spinal stenosis, cervical region; R35.1 Nocturia; Z68.39 Body mass index [BMI] 39.0-39.9, adult; Z96.89 Presence of other specified functional implants
CPT/HCPCS: 36415; 80053; 80061; 82565; 83036; 84153; 84402; 84403; 84443; 84520; 85027

== ENCOUNTER 2022-03-02 14:50 | Outpatient (REF) | payer OTHER, SELFPAY ==
[2022-03-02 16:07] LABS: Appearance Urine HAZY; Color Urine YELLOW; Glucose Urine UA NEG (NEG); Leukocyte Esterase Urine NEG (NEG); Nitrite Urine NEG (NEG); Specific Gravity - Urine >= 1.030 (1.005-1.025); Urine Blood NEG (NEG); Urine Ketones 5 MG/DL (NEG); Urine Protein 1+ MG/DL (NEG-TRACE)
[2022-03-02 16:10] LABS: Alanine Aminotransferase 30 U/L (0-40); Anion Gap 12 (12-20); Aspartate Amino Transferase 23 U/L (5-37); Carbon Dioxide 23 mmol/L (22-29); Chloride 105 mmol/L (96-108); Estimated Glomerular Filt Rate > 60; Potassium 4.1 mmol/L (3.3-5.1); Sodium 136 mmol/L (135-145)
[2022-03-02 16:13] LABS: RBC Urine 0 /HPF (0); Squamous Epithelial Cell Urine TRACE /LPF; WBC Urine 0 /HPF (0-4)
[2022-03-02 16:14] LABS: Calcium Oxalate Crystals Urine 3+ /LPF; Sperm Urine NOTED
[2022-03-03 01:47] LABS: CT PCR NOT DETECTED (Not Detect.); NG PCR NOT DETECTED (Not Detect.)
[2022-03-03 08:27] LABS: ~HepC Num1 15.12 S/CO (0.00-0.79); ~Hepatitis C Antibody Reactive (Nonreactive)
[2022-03-03 08:28] LABS: HIV AB/AG Nonreactive (Nonreactive); HIV Num 1 0.11 S/CO (0.00-0.99)
[2022-03-04 08:37] LABS: Syphilis Screen Nonreactive (Nonreactive)
[2022-03-09 14:11] LABS: Testosterone, Free 57.6 pg/mL (35.0-155.0); Testosterone, Total 347 ng/dL (250-1100)
== END 2022-03-02 14:51 | disposition home or self-care (01) ==
LOC: HO.LAB 14:50
PROVIDERS: PCP Physician Assistant; Visit Provider Internal Medicine Infectious Disease
DX: Z11.4 Encounter for screening for human immunodeficiency virus [HIV] (principal); Z20.6 Contact with and (suspected) exposure to human immunodeficiency virus [HIV]
CPT/HCPCS: 80051; 81001; 81003; 82565; 84402; 84403; 84450; 84460; 85025; 86780; 86803; 87389; 87491; 87591

== ENCOUNTER 2023-06-07 15:48 | Outpatient (AMB) | payer OTHER, SELFPAY ==
[2023-06-07 15:49] VITALS: BP 92/60; PULSE 60; O2SAT 97; BMI 32.3
--- NOTE | 2023-06-07 15:49 | MHC.PC.OV ---
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 Required: No Allergies No Known Allergies Allergy (Verified 06/07/23 16:03) Medication List - Last Reconciled 06/07/23 by Kaiden Bell PA-C albuterol sulfate 90 mcg/actuation (ProAir HFA) 1 inh inhalation QID 30 days alclometasone 0.05% 1 appl topical BEDTIME 14 days alprazolam 2 mg PO BEDTIME PRN amitriptyline 25 mg PO BEDTIME 30 days amlodipine 2.5 mg PO DAILY 90 days benzonatate 200 mg PO BID 5 days benzoyl peroxide 10% 1 appl topical DAILY PRN 30 days blood pressure kit-extra large As directed bupropion HCl 300 mg PO QAM cane As directed cholecalciferol (vitamin D3) 125 mcg PO DAILY 90 days CPAP (CPAP Machine/Device) As directed diclofenac sodium 3% 1 appl topical BID 30 days escitalopram oxalate 10 mg PO DAILY 30 days gabapentin 800 mg PO BID 30 days irbesartan-hydrochlorothiazide 150-12.5 mg 2 tabs PO DAILY 90 days lidocaine 4% 1 patch topical DAILY PRN 7 days lidocaine 5% 1 patch topical BID 15 days mecobalamin (vitamin B12) 1,000 mcg sublingual DAILY metoprolol succinate ER 50 mg PO DAILY 90 days metronidazole 0.75% 1 appl topical DAILY 15 days mirtazapine 15 mg PO DAILY 30 days mupirocin 2% 1 appl topical BID 15 days naproxen 500 mg PO BID 30 days nicotine 1 patch transdermal DAILY 28 days omeprazole 20 mg PO BEDTIME sildenafil 100 mg PO DAILY PRN 30 days tizanidine 4 mg PO BID 30 days tramadol 50 mg PO BID PRN 30 days venlafaxine ER 150 mg PO QAM venlafaxine ER 75 mg PO QAM Tobacco use date assessed: 06/07/23 Dental Screening Dental Screen Date: 06/07/23 HPI back pain HPI Details Patient is a 57 y/o M here today for a f/u visit. Is a recovering addict ( narcotics),? Pmhx - HTN, Obesity, hepatitis C, smoker, gerd, history of polysubstance abuse, lumbar disc disease ( status post spinal stimulator implanted), Concerns--> lumbar/ cervical stenosis--> Reports he has a poor quality of life ? due to his continues to have back pain.? He reports he will be continuing to follow pain management for interventions.? Had previous placed spinal stimulation though feels is not helpful. Continues to use tramadol for pain scale is a 9-10. He has seen back specialist Dr. Fournier at [facility] for consultation is considering surgery though has not been called back in quite some time. he reports he feels that the Medtronic spinal stimulating device is not effective and there was some miscommunication about sensors in leads. TODAY HE IS IN TEARS ABOUT WANTING THIS MEDTRONIC SPINAL STIMULATOR OUT OF HIS BACK AND HOPES THAT DR. FOURNIER CAN REMOVE THIS DEVICE. He unfortunately had a falling out with his pain specialist here in [place] whom placed in the Medtronic spinal stimulator.? He is willing to return back to pain management and [place] to see different MD for evaluation on this Medtronic spinal stimulator.? He feels is defective and is not working . ??. . Hypertension:? Patient does not monitor his blood pressure at home.? Today's blood pressure in office acceptable.? Otherwise denies any chest discomfort, palpitations or exertional chest discomforts. REports he decreased his smoking. .. OPHELIA:? Patient did have a sleep study showing moderate obstructive sleep apnea.? He is still in process of getting CPAP machine. . Tobacco dependence; unfortunately is still been smoking 2-3 cigarettes per day.? He is again willing to try nicotine patches again to completely quit smoking. [facility] Medical History Chronic pain syndrome Hepatitis C Hx MRSA infection Morbid obesity Obstructive sleep apnea Postlaminectomy syndrome Surgical History History of esophagogastroduodenoscopy (EGD) History of laminectomy History of surgery Hx of colonoscopy S/P insertion of spinal cord stimulator Family History Father Chronic mental illness Mental health disorder Mother No problems noted. Maternal Grandmother No problems noted. Maternal Grandfather No problems noted. Paternal Grandmother No problems noted. Paternal Grandfather No problems noted. 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 How often do you have a drink containing alcohol?: Never 2. How many drinks containing alcohol do you have on a typical day when you are drinking?: 1 or 2 (0) 3. How often do you have six or more drinks on one occasion?: Never Total Score: 0 Score Reviewed/Action Taken: No CONTERRAS-7 AMB Questionnaire CONTRERAS-7 Date CONTRERAS - 7 assessed: 06/07/23 Source: Developed by Drs. Marcos Crandall, Imani Jo, Nehemias Mckeon and colleagues, with an educational fernanda from [employer]. Review of Systems Const Denies headache(s) Eyes Denies loss of vision ENT Denies vertigo, Denies dizziness, Denies headache(s) and Denies sore throat Card Denies chest pain, Denies leg edema and Denies lightheadedness Resp Denies cough, Denies hemoptysis and Denies wheezing GI Denies abdominal pain, Denies melena, Denies constipation, Denies diarrhea and Denies vomiting Denies dysuria, Denies urinary frequency and Denies urinary urgency Musc Denies arthralgias, Denies joint swelling, Denies numbness and Denies tingling Neuro Denies Abnormal speech present, Denies behavioral changes, Denies vertigo, Denies dizziness, Denies headache(s), Denies loss of vision, Denies memory loss, Denies numbness and Denies tingling Psych Denies anxiety, Denies behavioral changes, Denies depression, Denies memory loss and Denies panic attacks Bradley/Lymph Denies easy bleeding and Denies easy bruising Aller/Immun Denies wheezing Physical exam (Primary Care) Vital Signs: Last Vital Signs Pulse 60 06/07/23 15:49 BP 92/60 06/07/23 15:49 Pulse Ox 97 06/07/23 15:49 Oxygen Delivery Method Room Air 06/07/23 15:49 BMI result Body Mass Index 32.3 Tobacco/Smoking Status: Tobacco use Status Tobacco use date assessed 06/07/23 06/07/23 15:53 Patient Tobacco Use Status Current everyday Tobacco 06/07/23 15:53 Tobacco use type Cigarette 06/07/23 15:53 e-Cigarette/Vaping Use Never Used 06/07/23 15:53 Thrive Assessment: Date of Thrive Assessment Date Thrive assessed 12/24/21 06/07/23 15:53 Const Other: HYSTERICALLY CRYING TODAY IN OFFICE General: healthy appearing, no acute distress, alert and awake Nutritional Appearance: well nourished Orientation/consciousness: oriented to person, oriented to place and oriented to time HENMT Ears: TM's normal bilaterally General nose exam: Normal nasal mucous membranes and turbinates present Eyes Conjunctivae: conjunctivae normal Sclerae: sclerae normal Pupils: Equal, round and reactive pupils present Neck Neck: Yes no lymphadenopathy and Yes no JVD Thyroid: Thyroid normal Carotids: no bruits Resp Effort & Inspection: normal respiratory effort and not tachypneic Auscultation: no crackles, no rales, no rhonchi and no wheezes Cardio Rate: regular rate Rhythm: regular rhythm Heart sounds: no murmurs and normal S1 and S2 GI Palpation (GI): Soft to palpation, nontender, no hepatomegaly and no splenomegaly Auscultation: normal bowel sounds Back/Spine/Pelvis Other: LIMITED RANGE OF MOTION OF LUMBAR SPINE DUE TO PAIN AND STIFFNESS. HAS LIDOCAINE PATCH OVER LEFT LOWER LUMBAR SPINE. Skin General skin exam: no rashes or lesions noted and dry skin Neuro General: oriented to person, oriented to place and oriented to time Cranial nerves: Yes Equal, round and reactive pupils present Speech: No Abnormal speech present Gait exam (Neuro): Normal gait present Motor exam (neuro): no tremor noted Extrem Right upper extremity: full ROM Left upper extremity: full ROM Right lower extremity: full ROM; no edema Left lower extremity: full ROM; no edema Psych Mental Status: mental status grossly normal Speech and movement: Normal speech and movement present Affect: normal affect Attitude: cooperative Thought process: Normal thought process present Assessment and Plan Assessment & Plan (1) Lumbar disc disease with radiculopathy: Comment: PATIENT HAS A LONG HISTORY LUMBAR DISC DISEASE Code(s): M51.16 - Intervertebral disc disorders with radiculopathy, lumbar region Plan: patient continues to have worsening lower lumbar spine pain. Has spinal stimulator permanently implanted in his lumbar spine and reports he does not feel it is helpful. He has got a 2nd opinion at [facility] with Dr. Hanson when apparently reports he needs the stimulator removed. He will try to establish surgical date for removal of the stimulator. Due to acute on chronic pain will consider new MRI of the lumbar spine and transition to oxycodone 10 mg t.i.d. p.r.n. for short term for his acute on chronic pain. Advised to hold tramadol for now (2) Spinal cord stimulator status: Code(s): Z96.89 - Presence of other specified functional implants Orders: Orders MR lumbar spine w con Today M51.16 - Intervertebral disc disorders with radiculopathy, lumbar region Referrals Orthopedics Referral M51.16 - Intervertebral disc disorders with radiculopathy, lumbar region, Z96.89 - Presence of other specified functional implants Medications: New oxycodone Partial Fill upon patient request. 10 mg PO Q8H 7 days 21 tabs 0RF pain M51.16 - Intervertebral disc disorders with radiculopathy, lumbar region On Hold tramadol Hold Comment: Doctor's Order 50 mg PO BID 30 days PRN 60 tabs 3RF pain M51.16 - Intervertebral disc disorders with radiculopathy, lumbar region Coding Level of Care Code Est Pt Level 4 (13023) Diagnoses Lumbar disc disease with radiculopathy M51.16 Spinal cord stimulator status Z96.89
== END 2023-06-07 16:30 | disposition home or self-care (01) ==
LOC: HO.HMGH 15:48
PROVIDERS: PCP Physician Assistant; Visit Provider Physician Assistant
DX: M51.16 Intervertebral disc disorders with radiculopathy, lumbar region (principal); Z96.89 Presence of other specified functional implants
CPT/HCPCS: 99214

== ENCOUNTER 2023-12-20 13:01 | Outpatient (AMB) | payer OTHER, SELFPAY ==
[2023-12-20 13:11] VITALS: BP 120/68; PULSE 67; O2SAT 96; BMI 33.9
--- NOTE | 2023-12-20 13:11 | A.OFFPC_ITS ---
Vital Signs 12/20/23 13:11 Height 6 ft 1 in Weight 257 lb 4 oz BMI 33.9 BP 120/68 Blood Pressure Location Lt brachial Position Sitting Pulse 67 Pulse Source Pulse Oximeter Pulse Oximetry (%) 96 Oxygen Delivery Method Room Air Intake Visit Reasons: Annual Physical Intake Note: Patient is here today for a physical. 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 Accompanied by: Spouse Allergies No Known Allergies Allergy (Verified 12/20/23 13:39) Medication List - Last Reconciled 12/20/23 by Kaiden Bell PA-C albuterol sulfate 90 mcg/actuation (ProAir HFA) 1 inh inhalation QID 30 days alclometasone 0.05% 1 appl topical BEDTIME 14 days alprazolam 2 mg PO BEDTIME PRN alprazolam mg PO amitriptyline 25 mg PO BEDTIME 30 days amlodipine 2.5 mg PO DAILY 90 days benzonatate 200 mg PO BID 5 days benzoyl peroxide 10% 1 appl topical DAILY PRN 30 days blood pressure kit-extra large As directed bupropion HCl 300 mg PO QAM cane As directed cholecalciferol (vitamin D3) 125 mcg PO DAILY 90 days CPAP (CPAP Machine/Device) As directed diclofenac sodium 3% 1 appl topical BID 30 days escitalopram oxalate 10 mg PO DAILY 30 days gabapentin 800 mg PO BID 30 days irbesartan-hydrochlorothiazide 150-12.5 mg 2 tabs PO DAILY 90 days lidocaine 4% 1 patch topical DAILY PRN 7 days lidocaine 5% 1 patch topical BID 15 days mecobalamin (vitamin B12) 1,000 mcg sublingual DAILY mecobalamin (vitamin B12) 1,000 mcg sublingual DAILY metoprolol succinate ER 50 mg PO DAILY 90 days metronidazole 0.75% 1 appl topical DAILY 15 days mirtazapine 15 mg PO DAILY 30 days mupirocin 2% 1 appl topical BID 15 days mupirocin 2% 1 appl topical BID 15 days naproxen 500 mg PO BID 30 days omeprazole 20 mg PO BEDTIME sildenafil 100 mg PO DAILY PRN sildenafil 100 mg PO DAILY PRN tizanidine 4 mg PO BID 30 days tramadol 50 mg PO BID PRN 30 days venlafaxine ER 150 mg PO QAM venlafaxine ER 75 mg PO QAM Tobacco use date assessed: 12/20/23 Dental Screening Dental Screen Date: 02/07/24 Did you have a dental visit in the last 12 months?: No Did you have a dental problem in the last 6 months where you did not have access to dental care?: No Was dental information given to patient?: Patient has dentist HPI Annual Physical HPI Details Patient is a 58 y/o M here today edward annual physical Is a recovering addict ( narcotics),? Pmhx - HTN, Obesity, hepatitis C, smoker, gerd, history of polysubstance abuse, lumbar disc disease ( status post spinal stimulator implanted), Concerns--> lumbar/ cervical stenosis--> Reports he has a poor quality of life ? due to his continues to have back pain.? He reports he will be continuing to follow pain management for interventions.? Had previous placed spinal stimulation though feels is not helpful. Continues to use tramadol for pain scale is a 9-10. He has seen back specialist Dr. Zuniga at [facility] for consultation is considering surgery though has not been called back in quite some time. Currently he is pain management includes gabapentin, tramadol, muscle relaxer and Tylenol. Continues to report a lot pain. Now using a cane for ambulation assistance. He is in hopes for another surgery to remove spinal stimulator. ??. . Hypertension:? Patient does not monitor his blood pressure at home.? Today's blood pressure acceptabl in office acceptable.? Otherwise denies any chest discomfort, palpitations or exertional chest discomforts. .. Hypertriglyceridemia: Has chronic hypertriglyceridemia. Has been trying low triglyceride diet and [place] threes. Will recheck his fasting lipid panel to ensure appropriate readings. .. OPHELIA:? Patient did have a sleep study showing moderate obstructive sleep apnea.? He does have a CPAP machine that he uses on a nightly basis. He does report the mask does not fit his nose properly and often slides. He will reach out to his DME supplier about getting a new mask. . Tobacco dependence; unfortunately is still been smoking 2-3 cigarettes per day.? He is again willing to try nicotine patches again to completely quit smoking. Vaccine: Up-to-date with COVID, up-to-date with pneumonia and tetanus vaccines, needs flu vaccine Colon cancer screening: need colonoscopy - last done at [facility]. Would like to have colonoscopy done [facility] Medical History Hx MRSA infection Obstructive sleep apnea Morbid obesity Chronic pain syndrome Postlaminectomy syndrome Hepatitis C Surgical History Hx of colonoscopy History of esophagogastroduodenoscopy (EGD) S/P insertion of spinal cord stimulator History of surgery History of laminectomy Family History Father Chronic mental illness Mental health disorder Mother No problems noted. Maternal Grandmother No problems noted. Maternal Grandfather No problems noted. Paternal Grandmother No problems noted. Paternal Grandfather No problems noted. 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 1. Little interest or pleasure in doing things: more than half the days 2. Feeling down, depressed, or hopeless: more than half the days 3. Trouble falling or staying asleep, or sleeping too much: nearly every day 4. Feeling tired or having little energy: nearly every day 5. Poor appetite or overeating: more than half the days 6. Feeling bad about yourself - or that you are a failure or have let yourself or your family down: nearly every day 7. Trouble concentrating on things, such as reading the newspaper or watching television: not at all 8. Moving or speaking so slowly that other people could have noticed. Or the opposite - being so fidgety or restless that you have been moving around a lot more than usual: more than half the days 9. Thoughts that you would be better off or of hurting yourself in some way: several days Total score: 18 Depression Screening Interpretation: Positive Depression Screening Follow-up: Existing condition and In treatment Depression Screening Done: Yes 54351 - PHQ-9 Billing: Yes Source: Developed by Drs. Marcos Crandall, Imani oJ, Nehemias Mckeon and colleagues, with an educational fernanda from [employer]. Thrive Questionnaire Date Thrive assessed: 12/20/23 I am a: Patient What is your living situation today?: I have a steady place to live Within the past 12 months, did the food you bought not last and you didn't have the money to get more?: Never true Within the past 12 months, did you worry whether your food would run out before you got money to buy more?: Never true Do you have trouble paying for medicines?: No Do you have trouble getting transportation to medical appointments?: No Do you have trouble paying your heating and electricity bill?: No Do you have trouble taking care of your child, family member or friend?: No Do you have trouble with day-to-day activities such as bathing, preparing meals, shopping, managing finances, etc.?: No Are you currently unemployed and looking for a job?: No Are you interested in more education?: No Please select the resources that you would like help with: None Currently or been in a relationship where the following occur: no concerns reported THRIVE Score: 0 AUDIT C Alcohol Use Questionnaire (AUDIT-C) 1. How often do you have a drink containing alcohol?: Never 2. How many drinks containing alcohol do you have on a typical day when you are drinking?: 1 or 2 (0) 3. How often do you have six or more drinks on one occasion?: Never Total Score: 0 Score Reviewed/Action Taken: No CONTRERAS-7 AMB Questionnaire CONTRERAS-7 Date CONTRERAS - 7 assessed: 12/20/23 Feeling nervous, anxious, or on edge: 3 = Nearly every day Not being able to stop or control worryin = Nearly every day Worrying too much about different things: 3 = Nearly every day Trouble relaxin = Nearly every day Being so restless that it is hard to sit still: 3 = Nearly every day Becoming easily annoyed or irritable: 3 = Nearly every day Feeling afraid as if something awful might happen: 3 = Nearly every day Total CONTRERAS-7 score (0-4 normal; 5-9 mild; 10-14 moderate; 15-21 severe): 21 Source: Developed by Drs. Marcos Crandall, Imani Jo, Nehemias Mckeon and colleagues, with an educational fernanda from [employer]. CONTRERAS-7 Assessment Billing CONTRERAS-7 Assessment Tool: CONTRERAS-7 Assessment 29232 Review of Systems Const Denies body aches, Denies chills, Denies excessive sweating, Denies fatigue, Denies fever(s) and Denies headache(s) Eyes Denies blurry vision ENT Denies dysphagia, Denies vertigo, Denies dizziness, Denies headache(s), Denies hearing loss and Denies tinnitus Card Denies chest pain, Denies chest pain with activity, Denies syncope, Denies irregular heart rhythm and Denies dyspnea Resp Denies chest congestion, Denies cough, Denies hemoptysis, Denies dyspnea and Denies wheezing GI Denies abdominal pain, Denies melena, Denies hematochezia, Denies coffee ground emesis, Denies dysphagia, Denies diarrhea, Denies nausea and Denies vomiting Denies difficulty urinating, Denies dysuria, Denies urinary frequency, Denies urinary hesitancy and Denies urinary urgency Musc Denies arthralgias, Denies limited range of motion, Denies muscle cramps and Denies muscle weakness Skin/Breast Denies rash and Denies skin ulcer Neuro Denies Abnormal speech present, Denies confusion, Denies vertigo, Denies dizziness, Denies syncope, Denies headache(s), Denies memory loss and Denies seizure-like activity Psych Denies anxiety, Denies confusion, Denies depression, Denies memory loss, Denies panic attacks and Denies paranoia Endo Denies excessive sweating, Denies fatigue, Denies flushing, Denies polydipsia and Denies polyuria Aller/Immun Denies wheezing Physical exam (Primary Care) Vital Signs: Last Vital Signs Pulse 67 12/20/23 13:11 BP 120/68 12/20/23 13:11 Pulse Ox 96 12/20/23 13:11 Oxygen Delivery Method Room Air 12/20/23 13:11 BMI result Body Mass Index 33.9 BMI Assessment/Plan discussion: High Tobacco/Smoking Status: Tobacco use Status Tobacco use date assessed 12/20/23 12/20/23 13:25 Patient Tobacco Use Status Current everyday Tobacco 02/07/24 13:11 Tobacco use type Cigarette 12/20/23 13:11 e-Cigarette/Vaping Use Never Used 12/20/23 13:11 Are you ready to quit: Yes Tobacco cessation counseling provided: Yes Items discussed: Nicotine replacement Relapse Prevention: discussed the importance of a supportive environment, discussed negative mood or depression after quitting, weight gain after smoking is common and discussed dietary, exercise and/or lifestyle changes Number of minutes spent counselin CPT code: 00651 - 4-10 Minutes PHQ-9: PHQ-9 Score PHQ-9: Total score 18 12/20/23 13:26 Depression Screening Interpretation: Positive Depression Screening Follow-up: Existing condition and In treatment Thrive Assessment: Date of Thrive Assessment Date Thrive assessed 12/20/23 12/20/23 13:25 Currently or been in a relationship where the following occur: no concerns reported Const General: cooperative, comfortable, no acute distress, alert and awake; No confusion Orientation/consciousness: oriented to person, oriented to place, patient oriented x3 and No confusion HENMT Head: Yes normocephalic Ears: external ears normal and TM's normal bilaterally Face and sinus: No sinus tenderness Mouth: Normal oral and palatal mucosa present and tongue normal Teeth and gingiva: dentition normal and gingiva normal Throat: Yes posterior oropharynx normal, Yes tonsils normal and Yes uvula midline Eyes Conjunctivae: conjunctivae normal Sclerae: sclerae normal Pupils: Equal, round and reactive pupils present EOM: EOMs intact bilaterally Direct Ophthalmoscopy: No no photophobia Neck Neck: Yes no lymphadenopathy, No tender and Yes no JVD Thyroid: Thyroid normal Carotids: no bruits Chest Chest palpation & inspection: no tenderness Resp Effort & Inspection: normal respiratory effort, no audible wheezes, not labored and no stridor Auscultation: no crackles, no rales, no rhonchi and no wheezes Cardio Jugular venous distension: no JVD Rate: regular rate, not bradycardic and not tachycardic Rhythm: regular rhythm Bruits: no carotid bruits Peripheral pulses: Peripheral pulses 2+ throughout GI Inspection: Yes normal to inspection, No abdominal wall ecchymosis and No visible herniation Palpation (GI): Soft to palpation, nontender, no guarding, not rigid and No hepatosplenomegaly present Auscultation: normoactive bowel sounds General: Yes no CVA tenderness Back/Spine/Pelvis Back: no CVA tenderness and No back tenderness Cervical Spine: cervical ROM normal Thoracic/Lumbar Spine: thoracic and lumbar spine normal to inspection, straight leg raise negative bilaterally, No thoraco-lumbar ROM limited and No lumbar spinal tenderness Skin Lesions: no lesions Rashes: no rashes Wounds: no wounds Neuro General: oriented to person, oriented to place, patient oriented x3, CN's II-XI intact bilaterally and No confusion Cranial nerves: Yes Equal, round and reactive pupils present and Yes Normal accommodation reflex present Cognition (Neuro): normal cognition Speech: No Abnormal speech present Gait exam (Neuro): Normal gait present Motor exam (neuro): 5/5 motor strength present throughout Extrem Right upper extremity: full ROM; no cyanosis Left upper extremity: full ROM; no cyanosis Right lower extremity: no edema Left lower extremity: no edema Psych Appearance: grossly normal Mental Status: mental status grossly normal Affect: normal affect Attitude: cooperative Thought process: Normal thought process present Assessment and Plan Assessment & Plan (1) Annual physical exam: Code(s): Z00.00 - Encounter for general adult medical examination without abnormal findings (2) Lumbar disc disease with radiculopathy: Comment: PATIENT HAS A LONG HISTORY LUMBAR DISC DISEASE Code(s): M51.16 - Intervertebral disc disorders with radiculopathy, lumbar region Plan: Now has reestablish care with Dr. Mcfadden office. Has gotten repeat x-rays. patient continues to have worsening lower lumbar spine pain. Has spinal stimulator permanently implanted in his lumbar spine and reports he does not feel it is helpful. Current pain management is tramadol, muscle relaxer, gabapentin though still is in moderate to severe pain. Now walking with a cane. He hopes he is able to have a new surgical procedure Give short-term low-dose supply of oxycodone 5 mg for breakthrough pain. (3) Spinal cord stimulator status: Code(s): Z96.89 - Presence of other specified functional implants Plan: As above (4) HTN (hypertension): Code(s): I10 - Essential (primary) hypertension Qualifiers: Hypertension type: essential hypertension Qualified Code(s): I10 - Essential (primary) hypertension Plan: Patient's blood pressure acceptable today in office. Will continue his current antihypertensive medication. Goal blood pressure to be below 140/90 (5) OPHELIA (obstructive sleep apnea): Code(s): G47.33 - Obstructive sleep apnea (adult) (pediatric) Plan: Patient does have moderate sleep apnea. Using a CPAP nightly lety report the mask does fit corectly . He will call his [facility] CPAP supplier for a new mask (6) Obese: Code(s): E66.9 - Obesity, unspecified Qualifiers: Obesity type: due to excess calories Obesity classification: adult class 1 (BMI 30 - 34.9) Serious obesity comorbidity presence: with serious comorbidity Body mass index: BMI 33.0-33.9 Qualified Code(s): E66.09 - Other obesity due to excess calories; Z68.33 - Body mass index [BMI] 33.0-33.9, adult Plan: Unfortunately has gained weight since last office visit. Has been more inactive due to his lower back pain. He does understand his BMI still remains above 30 will continue working on being physically active in adapting to better eating habits to reduce his weight further. (7) Smoker: Code(s): F17.200 - Nicotine dependence, unspecified, uncomplicated Plan: PATIENT DOES UNDERSTAND HE NEEDS TO QUIT SMOKING. CONTINUES TO SMOKE 1-2 CIGARETTES PER DAY AND HAS FOUND IT VERY DIFFICULT TO QUIT. DECLINES MY OFFERS TO START MEDICATION AND OR NICOTINE REPLACEMENT. HE WILL TRY TO QUIT ON HIS OWN . (8) Hypertriglyceridemia: Code(s): E78.1 - Pure hyperglyceridemia Plan: Has moderate hypertriglyceridemia. Will recheck his lipid panel. Advised on reducing his high triglyceride foods in his diet. He will try [place] threes as well. (9) Colon cancer screening: Code(s): Z12.11 - Encounter for screening for malignant neoplasm of colon (10) MDD (major depressive disorder): Code(s): F32.9 - Major depressive disorder, single episode, unspecified Qualifiers: Major depression recurrence: recurrent Active/Remission status: in partial remission Qualified Code(s): F33.41 - Major depressive disorder, recurrent, in partial remission Plan: Patient followed by psychiatrist. PHQ-9 score positive for depression which has been existing condition for him. Lot of his depression worsens due to his ch ronic pain. (11) Constipation: Code(s): K59.00 - Constipation, unspecified Qualifiers: Constipation type: drug induced constipation Qualified Code(s): K59.03 - Drug induced constipation Plan: Has been suffering with constipation likely drug induced as he continues to take general daily.. Will supply him with stool softener. Orders: Orders Microalbumin, Random (w Creat) Today I10 - Essential (primary) hypertension Prostate Specific Antigen Scr Today I10 - Essential (primary) hypertension, Z12.5 - Encounter for screening for malignant neoplasm of prostate Comprehensive [place]. Panel Fast Today I10 - Essential (primary) hypertension Lipid Panel Today E78.1 - Pure hyperglyceridemia Referrals Gastroenterology Referral Z12.11 - Encounter for screening for malignant neoplasm of colon Medications: New docusate sodium (Colace) 100 mg PO BID 30 days 60 caps 3RF K59.03 - Drug induced constipation oxycodone Partial Fill upon patient request. 5 mg PO DAILY 2 days 2 tabs 0RF pain M96.1 - Postlaminectomy syndrome, not elsewhere classified baclofen 20 mg PO BID 30 days 60 tabs 3RF M51.16 - Intervertebral disc disorders with radiculopathy, lumbar region Changed From sildenafil administer 30 minutes to 4 hours before activity 100 mg PO DAILY PRN sexual activity To sildenafil administer 30 minutes to 4 hours before activity 100 mg PO DAILY 30 days PRN 10 tabs 0RF sexual activity Refilled mecobalamin (vitamin B12) place tablet under tongue and allow to dissolve for at least30 secs before swallowing 1,000 mcg sublingual DAILY 30 tabs 2RF E53.8 - Deficiency of other specified B group vitamins omeprazole 20 mg PO BEDTIME 90 caps 0RF naproxen 500 mg PO BID 30 days 60 tabs 3RF M48.02 - Spinal stenosis, cervical region tramadol 50 mg PO BID 30 days PRN 60 tabs 3RF pain M51.16 - Intervertebral disc disorders with radiculopathy, lumbar region mupirocin 2% 1 appl topical BID 15 days 22 grams 0RF L01.00 - Impetigo, unspecified Discontinued tizanidine Discontinued Reason: Doctor's Order 4 mg PO BID 30 days 60 tabs 3RF muscle spasticity M51.16 - Intervertebral disc disorders with radiculopathy, lumbar region Coding Level of Care Code Est Pt Prev Care 40-64y(81100) Diagnoses Annual physical exam Z00.00 Lumbar disc disease with radiculopathy M51.16 Spinal cord stimulator status Z96.89 Essential hypertension I10 Hypertension type: essential hypertension OPHELIA (obstructive sleep apnea) G47.33 Class 1 obesity due to excess calories with serious comorbidity and body mass index (BMI) of 33.0 to 33.9 in adult E66.09; Z68.33 Obesity type: due to excess calories Obesity classification: adult class 1 (BMI 30 - 34.9) Serious obesity comorbidity presence: with serious comorbidity Body mass index: BMI 33.0-33.9 Smoker F17.200 Hypertriglyceridemia E78.1 Colon cancer screening Z12.11 Recurrent major depressive disorder, in partial remission F33.41 Major depression recurrence: recurrent Active/Remission status: in partial remission Drug-induced constipation K59.03 Constipation type: drug induced constipation Additional Codes CONTRERAS-7 Assessment Billing - CONTRERAS-7 Assessment Tool: CONTRERAS-7 Assessment 30542 ([id number]) Vital Signs *Quality* - CPT code: 61350 - 4-10 Minutes ([id number])
== END 2023-12-20 14:17 | disposition home or self-care (01) ==
PROVIDERS: PCP Physician Assistant; Visit Provider Physician Assistant
DX: Z23 Encounter for immunization (principal)
CPT/HCPCS: 90471; 90686; 99396; 99406

== ENCOUNTER 2024-01-10 11:45 | Outpatient (AMB) | payer OTHER, SELFPAY ==
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
[2024-01-10 12:00] VITALS: BP 148/92; PULSE 67; RESP 16; O2SAT 97
== END 2024-01-10 14:17 | disposition home or self-care (01) ==
PROVIDERS: PCP Physician Assistant; Visit Provider Physician Assistant
DX: M51.16 Intervertebral disc disorders with radiculopathy, lumbar region (principal); Z96.89 Presence of other specified functional implants; F33.41 Major depressive disorder, recurrent, in partial remission
CPT/HCPCS: 99214

== ENCOUNTER 2024-01-19 09:49 | Outpatient (AMB) | payer OTHER, SELFPAY ==
[2024-01-19 09:57] VITALS: BP 117/79; PULSE 64; RESP 12; O2SAT 97; BMI 32.2
--- NOTE | 2024-01-19 09:57 | MHC.OFFVIS ---
Intake Vital Signs 01/19/24 09:57 Height 6 ft 1 in Weight 244 lb BMI 32.2 BP 117/79 Blood Pressure Location Lt brachial Position Sitting Respiration 12 Pulse 64 Pulse Source Pulse Oximeter Pulse Oximetry (%) 97 Oxygen Delivery Method Room Air Intake Visit Reasons: Intervertebral Disc Disorders W/ Radiculopathy Allergies No Known Allergies Allergy (Verified 01/19/24 09:59) Medication List - Last Reconciled 01/19/24 by Mili Fontana LPN albuterol sulfate 90 mcg/actuation (ProAir HFA) 1 inh inhalation QID 30 days alclometasone 0.05% 1 appl topical BEDTIME 14 days alprazolam 2 mg PO BEDTIME PRN alprazolam 1 mg PO DAILY PRN amitriptyline 25 mg PO BEDTIME 30 days amlodipine 2.5 mg PO DAILY 90 days baclofen 20 mg PO BID 30 days benzonatate 200 mg PO BID 5 days benzoyl peroxide 10% 1 appl topical DAILY PRN 30 days blood pressure kit-extra large As directed bupropion HCl 300 mg PO QAM cane As directed cholecalciferol (vitamin D3) 125 mcg PO DAILY 90 days CPAP (CPAP Machine/Device) As directed desonide 0.05% 1 appl topical DAILY 30 days diclofenac sodium 3% 1 appl topical BID 30 days docusate sodium (Colace) 100 mg PO BID 30 days escitalopram oxalate 10 mg PO DAILY 30 days gabapentin 800 mg PO BID 30 days irbesartan-hydrochlorothiazide 150-12.5 mg 2 tabs PO DAILY 90 days lidocaine 5% 1 patch topical BID 15 days mecobalamin (vitamin B12) 1,000 mcg sublingual DAILY metoprolol succinate ER 50 mg PO DAILY 90 days metronidazole 0.75% 1 appl topical DAILY 15 days mirtazapine 15 mg PO DAILY 30 days mupirocin 2% 1 appl topical BID 15 days naproxen 500 mg PO BID 90 days omeprazole 20 mg PO BEDTIME sildenafil 100 mg PO DAILY PRN tramadol 50 mg PO BID PRN 30 days venlafaxine ER 150 mg PO QAM venlafaxine ER 75 mg PO QAM HPI Intervertebral Disc Disorders W/ Radiculopathy HPI Details 58-year-old male who presents today to the office for an evaluation of intervertebral disc disorder with radiculopathy. The patient has a past medical history of significant lumbar disc disease with radiculopathy down bilateral lower extremities. He has seen pain management in the past and received a permanent [employer] spinal stimulator in 2018, though he lost his effectiveness. He noticed annoying vibrating sensations from the SCS device to his legs and back region. He states that Dr. Owen changed the device battery and program from [employer] to [employer]. Since then he feels his pain has significantly worsened and he lost all therapeutic effect from his device. He followed up with Dr. Zuniga at [facility] and had an x-ray, but they were unable to decide whether to remove or leave the device. He is currently taking gabapentin, meloxicam, baclofen, tramadol 50 mg b.i.d., and naproxen with minimal to no relief. He has tried oxycodone 5 mg for seven days in the past. He reports a loss of sensation in his leg and in the perineum. He reports decreasing control of his bowel and bladder associated with leg weakness that has been progressively worsening over the past 4 months. He also reports lack of sensation in his penis, though his history is notable for ED secondary to arterial insufficiency. He is thinking about filling out the FMLA form to be able to retire from work since he is unable to continue with his pain issues. [facility] Medical History Hx MRSA infection Obstructive sleep apnea Morbid obesity Chronic pain syndrome Postlaminectomy syndrome Hepatitis C Surgical History Hx of colonoscopy History of esophagogastroduodenoscopy (EGD) S/P insertion of spinal cord stimulator History of surgery History of laminectomy Family History Father Chronic mental illness Mental health disorder Mother No problems noted. Maternal Grandmother No problems noted. Maternal Grandfather No problems noted. Paternal Grandmother No problems noted. Paternal Grandfather No problems noted. 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 Alert and oriented. Mood and affect appropriate. Follows and participates in conversation appropriately. Respiratory effort is unlabored. Able to transition from sit to stand unassisted. Ambulates with bilaterally normal heel strike and toe off. Results Reviewed Results Reviewed: No imaging is available for review. Assessment & Plan Assessment & Plan (1) Lumbar spinal stenosis: Code(s): M48.061 - Spinal stenosis, lumbar region without neurogenic claudication Plan I ordered a CT scan of the lumbar spine for further evaluation of decreasing bowel and bladder control associated with worsening lower extremity weakness over the past four months. We are unable to get an MRI due to mixed SCS system present. The patient will receive a call to schedule an appointment. I also explained to the patient that we are currently not enrolling patients in the opioid/narcotics program. I recommended trying OTC CBD or marijuana gummies for pain management. More than 40 minutes were spent in counseling and documentation of this visit. Scribed for Dr. Humphrey by Manuel Crabtree, medical staffing coordinator, on 01/19/2024. I, Dr. Humphrey, have personally reviewed and agree with the information entered by the scribe. Orders: Orders CT lumbar spine wo IV con 01/19/24 M48.061 - Spinal stenosis, lumbar region without neurogenic claudication, M96.1 - Postlaminectomy syndrome, not elsewhere classified Roman Humphrey MD Medications: On Hold naproxen Hold Comment: Doctor's Order 500 mg PO BID 90 days 180 tabs 1RF M48.02 - Spinal stenosis, cervical region Kaiden Bell PA-C Coding Level of Care Code Est Pt Level 5 (80317) Diagnoses Lumbar spinal stenosis M48.061
== END 2024-01-19 10:43 | disposition home or self-care (01) ==
PROVIDERS: PCP Physician Assistant; Visit Provider Internal Medicine
DX: M48.061 Spinal stenosis, lumbar region without neurogenic claudication (principal)
CPT/HCPCS: 99215

== ENCOUNTER → 2024-01-19 09:49 | Outpatient (BNVA) | payer OTHER, SELFPAY | PROVIDERS: PCP Physician Assistant; Visit Provider Internal Medicine | DX: M48.061 Spinal stenosis, lumbar region without neurogenic claudication (principal) | CPT/HCPCS: 99212 ==

== ENCOUNTER 2024-03-05 10:29 | Outpatient (AMB) | payer OTHER, SELFPAY ==
--- NOTE | 2024-03-05 10:34 | A.OFFVIS_ITS ---
Vital Signs 3 03/05/24 10:35 Height 6 ft 1 in Weight 251 lb BMI 33.1 BP 146/80 H Blood Pressure Location Lt brachial Position Sitting Pulse 76 Intake Visit Reasons: Colonoscopy Screening Intake Note: Patient new consult for pre Colonoscopy screening Patient denies any GI issues, he is complaining on face allergy. 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 Accompanied by: Self / Same As Patient Allergies No Known Allergies Allergy (Verified 03/05/24 10:33) Medication List - Last Reconciled 03/05/24 by Sherice Cadena PA-C albuterol sulfate 90 mcg/actuation (ProAir HFA) 1 inh inhalation QID 30 days alclometasone 0.05% 1 appl topical BEDTIME 14 days alprazolam 2 mg PO BEDTIME PRN alprazolam 1 mg PO DAILY PRN amitriptyline 25 mg PO BEDTIME 30 days amlodipine 2.5 mg PO DAILY 90 days baclofen 20 mg PO BID 30 days benzonatate 200 mg PO BID 5 days benzoyl peroxide 10% 1 appl topical DAILY PRN 30 days blood pressure kit-extra large As directed bupropion HCl XL 300 mg PO QAM cane As directed cholecalciferol (vitamin D3) 125 mcg PO DAILY 90 days CPAP (CPAP Machine/Device) As directed desonide 0.05% 1 appl topical DAILY 30 days diclofenac sodium 3% 1 appl topical BID 30 days docusate sodium (Colace) 100 mg PO BID 30 days escitalopram oxalate 10 mg PO DAILY 30 days gabapentin 800 mg PO BID 30 days irbesartan-hydrochlorothiazide 150-12.5 mg 2 tabs PO DAILY 90 days lidocaine 5% 1 patch topical BID 15 days mecobalamin (vitamin B12) 1,000 mcg sublingual DAILY meloxicam 15 mg PO DAILY 30 days metoprolol succinate ER 50 mg PO DAILY 90 days metronidazole 0.75% 1 appl topical DAILY 15 days mirtazapine 15 mg PO DAILY 30 days mupirocin 2% 1 appl topical BID 15 days naproxen 500 mg PO BID 90 days omeprazole 20 mg PO BEDTIME sildenafil 100 mg PO DAILY PRN tramadol 50 mg PO BID PRN 30 days venlafaxine ER 150 mg PO QAM venlafaxine ER 75 mg PO QAM HPI Comments Details: A 58 y/o male referred for screening colonoscopy- he has NO GI complaints His bowels are normal. He has very good appetite He was admitted to hospital- in [facility] after being at a convention- his detailed her unclear His only complaint is rash on his face- he uses a mask for sleep apnea-c/o of itchy and bleeds , becomes very irritated In review of record- EGD/ colon 2018- Aruna Renee-hyperplastic polyp-10 year repeat colonoscopy HCV tx'd Koby- Dr. Radford- SVR- per his report He has no nausea, vomiting, hematemesis, hematochezia fever or chills PFSH Medical History (Updated 03/05/24 @ 12:40 by Sherice Cadena PA-C) Hx MRSA infection Obstructive sleep apnea Morbid obesity Chronic pain syndrome Postlaminectomy syndrome Hepatitis C Surgical History Hx of colonoscopy History of esophagogastroduodenoscopy (EGD) S/P insertion of spinal cord stimulator History of surgery History of laminectomy Family History Father Chronic mental illness Mental health disorder Mother No problems noted. Maternal Grandmother No problems noted. Maternal Grandfather No problems noted. Paternal Grandmother No problems noted. Paternal Grandfather No problems noted. 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[employer] Cognitive needs: No Hearing needs: No Vision needs: Yes (glasses ) Review of Systems Const All systems reviewed & are unremarkable except as noted in HPI and below Card Denies chest pain and Denies dyspnea Resp Denies dyspnea GI Denies abdominal pain, Denies hematochezia, Denies change in bowel habits, Denies nausea and Denies vomiting Skin/Breast Details: Excoriation, erythema- Physical Exam Vital Signs: Last Vital Signs Pulse 76 03/05/24 10:35 BP 146/80 H 03/05/24 10:35 BMI result Body Mass Index 33.1 Const General: cooperative and comfortable Nutritional Appearance: overweight Orientation/consciousness: patient oriented x3 Limitations: no limitations HEENT Nose image: 2 1. 2. Eyes Sclerae: sclerae normal Resp Effort & Inspection: normal respiratory effort and able to speak in complete sentences Cardio Rate: regular rate Rhythm: regular rhythm Heart sounds: S1 normal heart sound present and S2 normal heart sound present GI Inspection: Yes obesity Palpation (GI): Soft to palpation and nontender Auscultation: normal bowel sounds Skin Rashes: rashes noted Neuro General: patient oriented x3 Extrem General: Yes full ROM Psych Appearance: well kempt Speech and movement: Clear speech present Affect: Animated affect present Attitude: cooperative Thought process: Normal thought process present Thought content: Normal thought content present Results Reviewed Results Reviewed: labs-11/2021- EGD colonoscopy 20 18 -hyperplastic Assessment & Plan Assessment & Plan (1) Rash: Code(s): R21 - Rash and other nonspecific skin eruption Category: Medical Plan: See PCP or uc (2) GERD (gastroesophageal reflux disease): Comment: good coverage PPI dietary modification EGD-2018 Code(s): K21.9 - Gastro-esophageal reflux disease without esophagitis Category: Medical Qualifiers: Esophagitis presence: without esophagitis Qualified Code(s): K21.9 - Gastro-esophageal reflux disease without esophagitis Plan: Continue plan (3) Colon cancer screening: Comment: Asymptomatic Hyperplastic polyp 2018 recommend 10 year Code(s): Z12.11 - Encounter for screening for malignant neoplasm of colon Category: Medical Plan: -no issues current, Hold off for now Patient Instructions: 58-year-old Gent referred for asymptomatic screening colonoscopy after reviewing record he is up-to-date However , please inform us if any other concerns He will follow-up with his PCP-for skin irritation He will continue plan of care with acid reflux dietary modifications and PPI We reviewed previous EGD colonoscopy Opportunity for questions, answered to his satisfaction Coding Level of Care Code New Pt Level 3 (13365) Diagnoses Rash R21 Gastroesophageal reflux disease without esophagitis K21.9 Esophagitis presence: without esophagitis Colon cancer screening Z12.11 Time Spent (min) 30
[2024-03-05 10:35] VITALS: BP 146/80; PULSE 76; BMI 33.1
== END 2024-03-05 12:50 | disposition home or self-care (01) ==
PROVIDERS: PCP Physician Assistant; Visit Provider Physician Assistant
DX: R21 Rash and other nonspecific skin eruption (principal); K21.9 Gastro-esophageal reflux disease without esophagitis; Z12.11 Encounter for screening for malignant neoplasm of colon
CPT/HCPCS: 99203

== ENCOUNTER → 2024-03-05 10:29 | Outpatient (BNVA) | payer OTHER, SELFPAY | PROVIDERS: PCP Physician Assistant; Visit Provider Physician Assistant | DX: Z12.11 Encounter for screening for malignant neoplasm of colon (principal); R21 Rash and other nonspecific skin eruption; K21.9 Gastro-esophageal reflux disease without esophagitis | CPT/HCPCS: 99202 ==

== ENCOUNTER 2024-03-05 15:18 | Outpatient (AMB) | payer OTHER, SELFPAY ==
[2024-03-05 16:05] VITALS: BP 118/76; PULSE 78; O2SAT 98; BMI 33.2
--- NOTE | 2024-03-05 16:05 | A.OFFPC_ITS ---
Vital Signs 3 03/05/24 16:05 Height 6 ft 1 in Weight 252 lb BMI 33.2 BP 118/76 Blood Pressure Location Lt brachial Position Sitting Pulse 78 Pulse Source Pulse Oximeter Pulse Oximetry (%) 98 Oxygen Delivery Method Room Air Intake Visit Reasons: rash on face/ pain in back Intake Note: The patient is here due to a rash on the face near the side of the nose, which is causing intense itching and burning. Scratching the area results in bleeding. The only creams that have provided relief for the affected area are Nystatin and triamcinolone cream. Photo Engraver Required: No Accompanied by: Self / Same As Patient Allergies No Known Allergies Allergy (Verified 03/05/24 16:11) Tobacco use date assessed: 12/20/23 Dental Screening Dental Screen Date: 12/20/23 HPI rash on face/ pain in back 2 HPI0 Details Patient is 58-year-old male here today for problem visit. Patient has a past medical history significant lumbar disc disease with radiculopathy down bilateral lower extremities. Patient reports a rash over bilateral nostrils likely secondary to his CPAP machine. Has been using an antifungal and topical steroid ointment. Needs refill on these ointments. Chronic lumbar spine pain: He was seen pain management in the past and received a permanent spinal stimulator though has lost his effectiveness. Has followed up with Dr. Zuniga at [facility] and has gotten x- rays. Unclear if there is new surgery plan to remove electronic stimulator and guidewires.. The continues on tramadol 50 mg b.i.d. though feels is not effective for his pain. Previously was buying [address] of oxycodone on [address] and is concerned about fentanyl. He is asking for a short-term script for pain medication and agree to use oxycodone for breakthrough pain until he is able to establish a more long-term solution. [facility] Medical History Hx MRSA infection Obstructive sleep apnea Morbid obesity Chronic pain syndrome Postlaminectomy syndrome Hepatitis C Surgical History Hx of colonoscopy History of esophagogastroduodenoscopy (EGD) S/P insertion of spinal cord stimulator History of surgery History of laminectomy Family History Father Chronic mental illness Mental health disorder Mother No problems noted. Maternal Grandmother No problems noted. Maternal Grandfather No problems noted. Paternal Grandmother No problems noted. Paternal Grandfather No problems noted. 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 Marcos Crandall, Imani Jo, Nehemias Mckeon and colleagues, with an educational fernanda from [employer]. Review of Systems Const Denies headache(s) Eyes Denies loss of vision ENT Denies vertigo, Denies dizziness, Denies headache(s) and Denies sore throat Card Denies chest pain, Denies leg edema and Denies lightheadedness Resp Denies cough, Denies hemoptysis and Denies wheezing GI Denies abdominal pain, Denies melena, Denies constipation, Denies diarrhea and Denies vomiting Denies dysuria, Denies urinary frequency and Denies urinary urgency Musc Denies arthralgias, Denies joint swelling, Denies numbness and Denies tingling Neuro Denies Abnormal speech present, Denies behavioral changes, Denies vertigo, Denies dizziness, Denies headache(s), Denies loss of vision, Denies memory loss, Denies numbness and Denies tingling Psych Denies anxiety, Denies behavioral changes, Denies depression, Denies memory loss and Denies panic attacks Bradley/Lymph Denies easy bleeding and Denies easy bruising Aller/Immun Denies wheezing Physical exam (Primary Care) Vital Signs: Last Vital Signs Pulse 78 03/05/24 16:05 BP 118/76 03/05/24 16:05 Pulse Ox 98 03/05/24 16:05 Oxygen Delivery Method Room Air 03/05/24 16:05 BMI result Body Mass Index 33.2 Tobacco/Smoking Status: Tobacco use Status Tobacco use date assessed 12/20/23 03/05/24 16:13 Patient Tobacco Use Status Current everyday Tobacco 03/05/24 16:13 Tobacco use type Cigarette 03/05/24 16:13 e-Cigarette/Vaping Use Never Used 03/05/24 16:13 Thrive Assessment: Date of Thrive Assessment Date Thrive assessed 12/20/23 03/05/24 16:13 Const General: healthy appearing, no acute distress, alert and awake Nutritional Appearance: well nourished Orientation/consciousness: oriented to person, oriented to place and oriented to time HENMT Ears: TM's normal bilaterally General nose exam: Normal nasal mucous membranes and turbinates present Nose image: 2 1. WELL DEMARCATED ERYTHEMATOUS RASH IN BILATERAL ASPECTS OF NOSE Eyes Conjunctivae: conjunctivae normal Sclerae: sclerae normal Pupils: Equal, round and reactive pupils present Neck Neck: Yes no lymphadenopathy and Yes no JVD Thyroid: Thyroid normal Carotids: no bruits Resp Effort & Inspection: normal respiratory effort and not tachypneic Auscultation: no crackles, no rales, no rhonchi and no wheezes Cardio Rate: regular rate Rhythm: regular rhythm Heart sounds: no murmurs and normal S1 and S2 GI Palpation (GI): Soft to palpation, nontender, no hepatomegaly and no splenomegaly Auscultation: normal bowel sounds Back/Spine/Pelvis Other: LIMITED RANGE OF MOTION OF THE LUMBAR SPINE, MOBILITY APPEARS SIGNIFICANTLY IMPEDED. AMBULATING WITH CANE FOR ASSISTANCE. Skin General skin exam: no rashes or lesions noted and dry skin Neuro General: oriented to person, oriented to place and oriented to time Cranial nerves: Yes Equal, round and reactive pupils present Speech: No Abnormal speech present Gait exam (Neuro): Normal gait present Motor exam (neuro): no tremor noted Extrem Right upper extremity: full ROM Left upper extremity: full ROM Right lower extremity: full ROM; no edema Left lower extremity: full ROM; no edema Psych Mental Status: mental status grossly normal Speech and movement: Normal speech and movement present Affect: normal affect Attitude: cooperative Thought process: Normal thought process present Assessment and Plan Assessment & Plan (1) Lumbar disc disease with radiculopathy: Comment: PATIENT HAS A LONG HISTORY LUMBAR DISC DISEASE Code(s): M51.16 - Intervertebral disc disorders with radiculopathy, lumbar region Plan: Now has reestablish care with Dr. Mcfadden office. Has gotten repeat x-rays. patient continues to have worsening lower lumbar spine pain. Has spinal stimulator permanently implanted in his lumbar spine which he reports originally was somewhat helpful though at as lost is effectiveness. Unfortunately lost his follow-up with [place] pain management. Current pain management is tramadol, muscle relaxer, gabapentin though still is in moderate to severe pain. Now walking with a cane. He hopes he is able to have a new surgical procedure Will Give short-term low-dose supply of oxycodone 5 mg for breakthrough pain #14 tablets to last more than 30 days.. We did discuss the habit-forming nature of these medications and patient does understand. Does have a history of addiction to opiates though also does have considerable pain which makes this case difficult. (2) Dermatitis: Code(s): L30.9 - Dermatitis, unspecified Plan: Has a chronic rash over his nose which likely secondary to a contact dermatitis from his CPAP mask. Medications: New 2 oxycodone Partial Fill upon patient request. 5 mg PO BID 7 days PRN 14 tabs 0RF pain M51.16 - Intervertebral disc disorders with radiculopathy, lumbar region oxycodone Partial Fill upon patient request. 5 mg PO BID PRN 14 tabs 0RF pain 7 days M51.16 - Intervertebral disc disorders with radiculopathy, lumbar region nystatin-triamcinolone 100,000-0.1 unit/g-% 1 appl topical DAILY 15 grams 3RF 30 days R21 - Rash and other nonspecific skin eruption Refilled 2 diclofenac sodium 3% 1 appl topical BID 100 grams 3RF 30 days M51.16 - Intervertebral disc disorders with radiculopathy, lumbar region lidocaine 5% leave on most painful area for up to 12 hrs 1 patch topical BID 30 ea 3RF 15 days M51.16 - Intervertebral disc disorders with radiculopathy, lumbar region mecobalamin (vitamin B12) place tablet under tongue and allow to dissolve for at least30 secs before swallowing 1,000 mcg sublingual DAILY 30 tabs 2RF E53.8 - Deficiency of other specified B group vitamins Coding Level of Care Code Est Pt Level 4 (51675) Diagnoses Lumbar disc disease with radiculopathy M51.16 Dermatitis L30.9
== END 2024-03-05 16:37 | disposition home or self-care (01) ==
PROVIDERS: PCP Physician Assistant; Visit Provider Physician Assistant
DX: M51.16 Intervertebral disc disorders with radiculopathy, lumbar region (principal); L30.9 Dermatitis, unspecified
CPT/HCPCS: 99214

== ENCOUNTER 2024-03-07 08:23 | Outpatient (REF) | payer OTHER, SELFPAY ==
--- NOTE | ~2024-03-07 | CT_ITS ---
EXAMINATION: CT LUMBAR SPINE WITHOUT CONTRAST CLINICAL INFORMATION: Postlaminectomy syndrome COMPARISON: None available. TECHNIQUE: Multiple 2 and 1.5 mm axial images of the lumbar spine were obtained from lower T12 to S1 levels without IV contrast enhancement. Bone window and soft tissue window images were reconstructed. Coronal and Sagittal bone window images were also reconstructed from the axial image data. This CT examination was performed using dose optimization techniques as appropriate, variously including the following: *Automated exposure control *Adjustment of mA and/or kV according to patient size (this includes techniques or standardized protocols for targeted exams where dose is matched to indication/reason for exam; i.e. extremities or head) *Use of iterative reconstruction technique DLP; 1125 mGy-cm FINDINGS: The visualized lumbar vertebrae are intact with moderate T12-L1 dextroscoliosis and moderate L4-L5 levoscoliosis. T12/L1: Bony structures are intact with normal alignment. Intervertebral disc height is markedly decreased, with vacuum disc phenomenon. Bilateral neuroforamina are patent. Bilateral apophyseal joints are intact with normal alignment. L-1/L-2: Bony structures are intact with normal alignment. Intervertebral disc height is normal with vacuum disc phenomenon. Bilateral neuroforamina are patent. Bilateral apophyseal joints are intact with normal alignment. Bilateral apophyseal joints show loss of joint space, sclerosis, facet hypertrophy and osteophytosis. Right L1-L2 posterior fixation with transpedicular screw and vertical bars is seen. L2/L3: Bony structures are intact with marked right-sided L2 on L3 displacement by 0.9 cm. Intervertebral disc height is completely lost. Bilateral L3 laminectomies, resection of spinous process is seen. Bilateral neuroforamina are patent. Bilateral apophyseal joints are intact with normal alignment. Bilateral apophyseal joints show loss of joint space, sclerosis, facet hypertrophy and osteophytosis. L3/L4: Bony structures are intact with normal alignment. Intervertebral disc height is mildly decreased. Bilateral neuroforamina are patent. Bilateral L4 laminectomies, resection of spinous process is seen. There is right L3-L4 posterior spinal fixation with transpedicular screws and vertical bars. Bilateral apophyseal joints are intact with normal alignment. Bilateral apophyseal joints show loss of joint space, sclerosis, facet hypertrophy and osteophytosis. L4/L5: Bony structures are intact with normal alignment. Intervertebral disc height is markedly decreased in the right half with vacuum disc phenomenon. There is marked asymmetric stenosis of the right L4-L5 neural foramen. In spite of the decompression, there is persistent moderate spinal stenosis due to impingement by hypertrophic ligamentum flavum. Bilateral apophyseal joints are intact with normal alignment. Bilateral apophyseal joints show loss of joint space, sclerosis, facet hypertrophy and osteophytosis. L5/S1: Bony structures are intact with normal alignment. Intervertebral disc height is normal. Bilateral neuroforamina are patent. Bilateral apophyseal joints are intact with normal alignment. Bilateral apophyseal joints show loss of joint space, sclerosis, facet hypertrophy and osteophytosis. CT/CT lumbar spine wo IV con IMPRESSION: 1. No evidence of acute fracture or dislocation. 2. Moderate T12-L1 dextroscoliosis and moderate L4-L5 levoscoliosis. 3. Status post right lateral L3 and L4 laminectomies, resection of spinous processes, right-sided L1-L2 and L3-L4 posterior fixation with transpedicular screws and vertical bars. 4. Marked right-sided L2-L3 spondylolisthesis. 5. Marked asymmetric stenosis of the right L4-L5 neural foramen. 6. In spite of the decompression, there is persistent moderate spinal stenosis at L4-L5 due to impingement by hypertrophic ligamentum flavum. 7. Multilevel advanced lumbar spondylosis.
== END 2024-03-07 08:24 | disposition home or self-care (01) ==
LOC: HO.CT 08:23
PROVIDERS: PCP Physician Assistant; Visit Provider Internal Medicine
DX: M96.1 Postlaminectomy syndrome, not elsewhere classified (principal); M48.061 Spinal stenosis, lumbar region without neurogenic claudication
CPT/HCPCS: 72132

== ENCOUNTER 2024-04-22 14:02 | Outpatient (AMB) | payer OTHER, SELFPAY ==
[2024-04-22 14:04] VITALS: BP 136/80; BMI 34.1
--- NOTE | 2024-04-22 14:04 | A.OFFPC_ITS ---
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 Specialist Required: No Accompanied by: Self / Same As Patient Allergies No Known Allergies Allergy (Verified 04/22/24 14:38) Medication List - Last Reconciled 04/22/24 by Kaiden Bell PA-C albuterol sulfate 90 mcg/actuation (Ventolin HFA) 1 inh inhalation QID 30 days alclometasone 0.05% 1 appl topical BEDTIME 14 days alprazolam 2 mg PO BEDTIME PRN alprazolam 1 mg PO DAILY PRN amitriptyline 25 mg PO BEDTIME 30 days amlodipine 2.5 mg PO DAILY 90 days baclofen 20 mg PO BID 30 days benzonatate 200 mg PO BID 5 days benzoyl peroxide 10% 1 appl topical DAILY PRN 30 days blood pressure kit-extra large As directed cane As directed cholecalciferol (vitamin D3) 125 mcg PO DAILY 90 days CPAP (CPAP Machine/Device) As directed desonide 0.05% 1 appl topical DAILY 30 days diclofenac sodium 3% 1 appl topical BID 30 days docusate sodium (Colace) 100 mg PO BID 30 days gabapentin 800 mg PO BID 30 days irbesartan-hydrochlorothiazide 150-12.5 mg 2 tabs PO DAILY 90 days lidocaine 5% 1 patch topical BID 15 days mecobalamin (vitamin B12) 1,000 mcg sublingual DAILY metoprolol succinate ER 50 mg PO DAILY 90 days metronidazole 0.75% 1 appl topical DAILY 15 days mirtazapine 15 mg PO DAILY 30 days mupirocin 2% 1 appl topical BID 15 days naproxen 500 mg PO BID 90 days nystatin-triamcinolone 100,000-0.1 unit/g-% 1 appl topical DAILY 30 days omeprazole 20 mg PO BEDTIME oxycodone 5 mg PO BID PRN 7 days tramadol 50 mg PO BID PRN 30 days venlafaxine ER 150 mg PO QAM Tobacco use date assessed: 12/20/23 Dental Screening Dental Screen Date: 12/20/23 HPI f/u HTN HPI Details Patient is 58-year-old male here today for a follow up. Patient has a past medical history significant lumbar disc disease with radiculopathy down bilateral lower extremities. Patient reports a rash over bilateral nostrils likely secondary to his CPAP machine. Has been using an antifungal and topical steroid ointment. Needs refill on these ointments. Chronic lumbar spine pain: He has reestablish with [facility] with a new doctor his undergoing evaluation. 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 He is interested in getting the spinal stimulator removed from his back. Currently still using tramadol and p.r.n. oxycodone for his pain. She also does report alprazolam helps him at night with his back pain. The continues on tramadol 50 mg b.i.d. though feels is not effective for his pain. Previously was buying [address]ycodone on [address] and is concerned about fentanyl. He is asking for a short-term script for pain medication and agree to use oxycodone for breakthrough pain until he is able to establish a more long-term solution. .. Anxiety: Seems to have lost follow-up with his med psychiatric provider. He now needs PCP to manage his mental health medication. He informs me he has been taking alprazolam 1 mg in the daytime and 2 mg at night. We did discuss the habit-forming nature of benzodiazepines and he does understand. He would like to slowly wean down on the dose of benzodiazepine. PLAN: Will reduce his alprazolam to only 2 mg at night over the next few months. Will continue to reduce nighttime alprazolam dose going forward. [facility] Medical History Hx MRSA infection Obstructive sleep apnea Morbid obesity Chronic pain syndrome Postlaminectomy syndrome Hepatitis C Surgical History Hx of colonoscopy History of esophagogastroduodenoscopy (EGD) S/P insertion of spinal cord stimulator History of surgery History of laminectomy Family History Father Chronic mental illness Mental health disorder Mother No problems noted. Maternal Grandmother No problems noted. Maternal Grandfather No problems noted. Paternal Grandmother No problems noted. Paternal Grandfather No problems noted. 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 Marcos Crandall, Imani Jo, Nehemias Mcekon and colleagues, with an educational fernanda from [employer]. Review of Systems Const Denies headache(s) Eyes Denies loss of vision ENT Denies vertigo, Denies dizziness, Denies headache(s) and Denies sore throat Card Denies chest pain, Denies leg edema and Denies lightheadedness Resp Denies cough, Denies hemoptysis and Denies wheezing GI Denies abdominal pain, Denies melena, Denies constipation, Denies diarrhea and Denies vomiting Denies dysuria, Denies urinary frequency and Denies urinary urgency Musc Denies arthralgias, Denies joint swelling, Denies numbness and Denies tingling Neuro Denies Abnormal speech present, Denies behavioral changes, Denies vertigo, Denies dizziness, Denies headache(s), Denies loss of vision, Denies memory loss, Denies numbness and Denies tingling Psych Denies anxiety, Denies behavioral changes, Denies depression, Denies memory loss and Denies panic attacks Bradley/Lymph Denies easy bleeding and Denies easy bruising Aller/Immun Denies wheezing Physical exam (Primary Care) Vital Signs: Last Vital Signs BP 136/80 04/22/24 14:04 Oxygen Delivery Method Room Air 04/22/24 14:04 BMI result Body Mass Index 34.1 Tobacco/Smoking Status: Tobacco use Status Tobacco use date assessed 12/20/23 04/22/24 14:05 Patient Tobacco Use Status Current everyday Tobacco 04/22/24 14:05 Tobacco use type Cigarette 04/22/24 14:05 e-Cigarette/Vaping Use Never Used 04/22/24 14:05 Thrive Assessment: Date of Thrive Assessment Date Thrive assessed 12/20/23 04/22/24 14:05 Const General: healthy appearing, no acute distress, alert and awake Nutritional Appearance: well nourished Orientation/consciousness: oriented to person, oriented to place and oriented to time HENMT Ears: TM's normal bilaterally General nose exam: Normal nasal mucous membranes and turbinates present Eyes Conjunctivae: conjunctivae normal Sclerae: sclerae normal Pupils: Equal, round and reactive pupils present Neck Neck: Yes no lymphadenopathy and Yes no JVD Thyroid: Thyroid normal Carotids: no bruits Resp Effort & Inspection: normal respiratory effort and not tachypneic Auscultation: no crackles, no rales, no rhonchi and no wheezes Cardio Rate: regular rate Rhythm: regular rhythm Heart sounds: no murmurs and normal S1 and S2 GI Palpation (GI): Soft to palpation, nontender, no hepatomegaly and no splenomegaly Auscultation: normal bowel sounds Skin General skin exam: no rashes or lesions noted and dry skin Neuro General: oriented to person, oriented to place and oriented to time Cranial nerves: Yes Equal, round and reactive pupils present Speech: No Abnormal speech present Gait exam (Neuro): Normal gait present Motor exam (neuro): no tremor noted Extrem Right upper extremity: full ROM Left upper extremity: full ROM Right lower extremity: full ROM; no edema Left lower extremity: full ROM; no edema Psych Mental Status: mental status grossly normal Speech and movement: Normal speech and movement present Affect: normal affect Attitude: cooperative Thought process: Normal thought process present Assessment and Plan Assessment & Plan (1) Lumbar disc disease with radiculopathy: Comment: PATIENT HAS A LONG HISTORY LUMBAR DISC DISEASE Code(s): M51.16 - Intervertebral disc disorders with radiculopathy, lumbar region Plan: Now has reestablish care with Dr. Mcfadden office. Has gotten repeat x-rays. patient continues to have worsening lower lumbar spine pain. Has spinal stimulator permanently implanted in his lumbar spine which he reports originally was somewhat helpful though at as lost is effectiveness. Unfortunately lost his follow-up with [facility]. Current pain management is tramadol, muscle relaxer, gabapentin though still is in moderate to severe pain. Now walking with a cane. He hopes he is able to have a new surgical procedure Will Give short-term low-dose supply of oxycodone 5 mg for breakthrough pain #14 tablets to last more than 30 days.. We did discuss the habit-forming nature of these medications and patient does understand. Does have a history of addiction to opiates though also does have considerable pain which makes this case difficult. (2) HTN (hypertension): Code(s): I10 - Essential (primary) hypertension Qualifiers: Hypertension type: essential hypertension Qualified Code(s): I10 - Essential (primary) hypertension Plan: Patient's blood pressure acceptable today in office. Will continue his current antihypertensive medication. Goal blood pressure to be below 140/90 (3) OPHELIA (obstructive sleep apnea): Code(s): G47.33 - Obstructive sleep apnea (adult) (pediatric) Plan: Patient does have moderate sleep apnea. Using a CPAP nightly lety report the mask does fit corectly . He will call his [facility] CPAP supplier for a new mask (4) Hypertriglyceridemia: Code(s): E78.1 - Pure hyperglyceridemia Plan: Has moderate hypertriglyceridemia. Will recheck his lipid panel. Advised on reducing his high triglyceride foods in his diet. He will try [place] threes as well. (5) Bronchitis: Code(s): J40 - Bronchitis, not specified as acute or chronic Plan: Does report having an upper respiratory viral illness recently. He has interested in a liquid cough medication for congestion cough suppressant. (6) CONTRERAS (generalized anxiety disorder): Code(s): F41.1 - Generalized anxiety disorder Plan: As per HPI patient seems to have lost his follow-up with his mental health med provider now needs PCP to manage his mental health medications. He is on 3 mg total daily dosing of alprazolam. Did discuss the habit-forming nature of this medication and patient does agree. He does have a benzodiazepine dependency and is willing to work with me to reduce his daily dose of benzodiazepines. Now will continue alprazolam 2 mg at night and continue to try to wean his 2 mg alprazolam dose at night going forward. Medications: New dextromethorphan-guaifenesin 5-50 mg/5 mL (Robitussin Cough-Chest Congestion DM) 20 mL PO Q4-6H PRN 237 mL 0RF cough 10 days J40 - Bronchitis, not specified as acute or chronic Changed From albuterol sulfate 90 mcg/actuation (ProAir HFA) 1 inh inhalation QID 30 days 8.5 grams 0RF J45.909 - Unspecified asthma, uncomplicated To albuterol sulfate 90 mcg/actuation (Ventolin HFA) 1 inh inhalation QID 8.5 grams 3RF 30 days J45.909 - Unspecified asthma, uncomplicated From alprazolam 2 mg PO BEDTIME PRN Insomnia To alprazolam 2 mg PO BEDTIME 30 tabs 3RF Insomnia 30 days Refilled metoprolol succinate ER 50 mg PO DAILY 90 tabs 1RF 90 days I10 - Essential (primary) hypertension lidocaine 5% leave on most painful area for up to 12 hrs 1 patch topical BID 30 ea 3RF 15 days M51.16 - Intervertebral disc disorders with radiculopathy, lumbar region gabapentin 800 mg PO BID 60 tabs 3RF 30 days G89.4 - Chronic pain syndrome, M96.1 - Postlaminectomy syndrome, not elsewhere classified cholecalciferol (vitamin D3) 125 mcg PO DAILY 90 caps 1RF 90 days E66.01 - Morbid (severe) obesity due to excess calories baclofen 20 mg PO BID 60 tabs 3RF 30 days M51.16 - Intervertebral disc disorders with radiculopathy, lumbar region amitriptyline 25 mg PO BEDTIME 30 tabs 0RF 30 days G47.00 - Insomnia, unspecified mecobalamin (vitamin B12) place tablet under tongue and allow to dissolve for at least30 secs before swallowing 1,000 mcg sublingual DAILY 30 tabs 2RF E53.8 - Deficiency of other specified B group vitamins irbesartan-hydrochlorothiazide 150-12.5 mg 2 tabs PO DAILY 180 tabs 3RF 90 days amlodipine 2.5 mg PO DAILY 90 tabs 1RF 90 days I10 - Essential (primary) hypertension omeprazole 20 mg PO BEDTIME 90 caps 0RF alclometasone 0.05% 1 appl topical BEDTIME 45 grams 0RF 14 days R21 - Rash and other nonspecific skin eruption Coding Level of Care Code Est Pt Level 4 (53821) Diagnoses Lumbar disc disease with radiculopathy M51.16 Essential hypertension I10 Hypertension type: essential hypertension OPHELIA (obstructive sleep apnea) G47.33 Hypertriglyceridemia E78.1 Bronchitis J40 CONTRERAS (generalized anxiety disorder) F41.1
== END 2024-04-22 15:10 | disposition home or self-care (01) ==
PROVIDERS: PCP Physician Assistant; Visit Provider Physician Assistant
DX: M51.16 Intervertebral disc disorders with radiculopathy, lumbar region (principal); I10 Essential (primary) hypertension; G47.33 Obstructive sleep apnea (adult) (pediatric); E78.1 Pure hyperglyceridemia; J40 Bronchitis, not specified as acute or chronic; F41.1 Generalized anxiety disorder
CPT/HCPCS: 99214

== ENCOUNTER 2024-07-03 09:39 | Outpatient (AMB) | payer OTHER, SELFPAY ==
[2024-07-03 09:59] VITALS: BP 86/56; PULSE 84; O2SAT 97; BMI 33.5
--- NOTE | 2024-07-03 09:59 | MHC.PC.OV ---
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 Accompanied by: Spouse Allergies No Known Allergies Allergy (Verified 07/03/24 10:23) Medication List - Last Reconciled 07/03/24 by Kaiden Bell PA-C albuterol sulfate 90 mcg/actuation (Ventolin HFA) 1 inh inhalation QID 30 days alclometasone 0.05% 1 appl topical BEDTIME 14 days alprazolam 4 mg (2 x 2 mg) PO BEDTIME 30 days amitriptyline 25 mg PO BEDTIME 30 days amlodipine 2.5 mg PO DAILY 90 days baclofen 20 mg PO BID 30 days benzoyl peroxide 10% 1 appl topical DAILY PRN 30 days blood pressure kit-extra large As directed cane As directed cholecalciferol (vitamin D3) 125 mcg PO DAILY 90 days CPAP (CPAP Machine/Device) As directed desonide 0.05% 1 appl topical DAILY 30 days dextromethorphan-guaifenesin 5-50 mg/5 mL (Robitussin Cough-Chest Congestion DM) 20 mL PO Q4-6H PRN 10 days diclofenac sodium 3% 1 appl topical BID 30 days docusate sodium (Colace) 100 mg PO BID 30 days gabapentin 800 mg PO BID 30 days irbesartan-hydrochlorothiazide 150-12.5 mg 2 tabs PO DAILY 90 days lidocaine 5% 1 patch topical BID 15 days mecobalamin (vitamin B12) 1,000 mcg sublingual DAILY metoprolol succinate ER 50 mg PO DAILY 90 days mirtazapine 15 mg PO DAILY 30 days mupirocin 2% 1 appl topical BID 15 days naloxone 4 mg/actuation sprays intranasal naproxen 500 mg PO BID 90 days nystatin-triamcinolone 100,000-0.1 unit/g-% 1 appl topical DAILY 30 days omeprazole 20 mg PO BEDTIME oxycodone 5 mg PO BID PRN 7 days tramadol 50 mg PO BID PRN 30 days venlafaxine ER 150 mg PO QAM Tobacco use date assessed: 12/20/23 Dental Screening Dental Screen Date: 02/07/24 HPI f/u Anxiety / lumbar HPI Details Patient is 58-year-old male here today for a follow up. Patient has a past medical history significant for hypertension, hyperlipidemia, generalized anxiety disorder, lumbar disc disease with radiculopathy down bilateral lower extremities. Chronic lumbar spine pain: Now followed by Dr. Zuniga. Has spoken with and been evaluated by spinal stimulator representatives and had Maze some adjustments that seems to have been helpful in reducing his pain. 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 He is interested in getting the spinal stimulator removed from his back. Currently still using tramadol and p.r.n. Pain management--> The continues on tramadol 50 mg b.i.d. though feels it has been helpful. He has adjustments in his neuro spine stimulator which he feels has taken somewhat of a effect on reducing his pain. .. Anxiety: Seems to have lost follow-up with his med psychiatric provider. He now needs PCP to manage his mental health medication. He informs me he has been taking alprazolam 1 mg in the daytime and 2 mg at night. We did discuss the habit-forming nature of benzodiazepines and he does understand. He would like to slowly wean down on the dose of benzodiazepine. HE STILL CONTINUES TO BE MOTIVATED TO WEAN OFF OF BENZODIAZEPINES PLAN: Current plan is to continue him on 4 mg daily of alprazolam in next visit reduce him down to 2 mg daily of alprazolam. .. Hypertension: Blood pressure noted to be low today in office. Will hold his Arb losartan hydrochlorothiazide at this time. He will continue on amlodipine at current dose. Advised to monitor blood pressure at home with goal blood pressure to be above 100/60 in below 140/90 [facility] Medical History Hx MRSA infection Obstructive sleep apnea Morbid obesity Chronic pain syndrome Postlaminectomy syndrome Hepatitis C Surgical History Hx of colonoscopy History of esophagogastroduodenoscopy (EGD) S/P insertion of spinal cord stimulator History of surgery History of laminectomy Family History Father Chronic mental illness Mental health disorder Mother No problems noted. Maternal Grandmother No problems noted. Maternal Grandfather No problems noted. Paternal Grandmother No problems noted. Paternal Grandfather No problems noted. 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 Marcos Crandall, Imani Jo, Nehemias Mckeon and colleagues, with an educational fernanda from [email or web address]. Review of Systems Const Denies headache(s) Eyes Denies loss of vision ENT Denies vertigo, Denies dizziness, Denies headache(s) and Denies sore throat Card Denies chest pain, Denies leg edema and Denies lightheadedness Resp Denies cough, Denies hemoptysis and Denies wheezing GI Denies abdominal pain, Denies melena, Denies constipation, Denies diarrhea and Denies vomiting Denies dysuria, Denies urinary frequency and Denies urinary urgency Musc Denies arthralgias, Denies joint swelling, Denies numbness and Denies tingling Neuro Denies Abnormal speech present, Denies behavioral changes, Denies vertigo, Denies dizziness, Denies headache(s), Denies loss of vision, Denies memory loss, Denies numbness and Denies tingling Psych Denies anxiety, Denies behavioral changes, Denies depression, Denies memory loss and Denies panic attacks Bradley/Lymph Denies easy bleeding and Denies easy bruising Aller/Immun Denies wheezing Physical exam (Primary Care) Vital Signs: Last Vital Signs Pulse 84 07/03/24 09:59 BP 86/56 L 07/03/24 09:59 Pulse Ox 97 08/21/24 09:59 Oxygen Delivery Method Room Air 07/03/24 09:59 BMI result Body Mass Index 33.5 Tobacco/Smoking Status: Tobacco use Status Tobacco use date assessed 12/20/23 07/03/24 10:09 Patient Tobacco Use Status Current everyday Tobacco 07/03/24 10:09 Tobacco use type Cigarette 07/03/24 10:09 e-Cigarette/Vaping Use Never Used 07/03/24 10:09 Thrive Assessment: Date of Thrive Assessment Date Thrive assessed 12/20/23 07/03/24 10:09 Const General: healthy appearing, no acute distress, alert and awake Nutritional Appearance: well nourished Orientation/consciousness: oriented to person, oriented to place and oriented to time HENMT Ears: TM's normal bilaterally General nose exam: Normal nasal mucous membranes and turbinates present Eyes Conjunctivae: conjunctivae normal Sclerae: sclerae normal Pupils: Equal, round and reactive pupils present Neck Neck: Yes no lymphadenopathy and Yes no JVD Thyroid: Thyroid normal Carotids: no bruits Resp Effort & Inspection: normal respiratory effort and not tachypneic Auscultation: no crackles, no rales, no rhonchi and no wheezes Cardio Rate: regular rate Rhythm: regular rhythm Heart sounds: no murmurs and normal S1 and S2 GI Palpation (GI): Soft to palpation, nontender, no hepatomegaly and no splenomegaly Auscultation: normal bowel sounds Skin General skin exam: no rashes or lesions noted and dry skin Neuro General: oriented to person, oriented to place and oriented to time Cranial nerves: Yes Equal, round and reactive pupils present Speech: No Abnormal speech present Gait exam (Neuro): Normal gait present Motor exam (neuro): no tremor noted Extrem Right upper extremity: full ROM Left upper extremity: full ROM Right lower extremity: full ROM; no edema Left lower extremity: full ROM; no edema Psych Mental Status: mental status grossly normal Speech and movement: Normal speech and movement present Affect: normal affect Attitude: cooperative Thought process: Normal thought process present Assessment and Plan Assessment & Plan (1) Lumbar disc disease with radiculopathy: Comment: PATIENT HAS A LONG HISTORY LUMBAR DISC DISEASE Code(s): M51.16 - Intervertebral disc disorders with radiculopathy, lumbar region Plan: Now has reestablish care with Dr. Mcfadden office. Has gotten repeat x-rays. patient continues to have worsening lower lumbar spine pain. Has had an evaluation with spinal stimulator representatives and made some adjustments which seems to have been helpful on reducing his pain. Unfortunately lost his follow-up with [facility] pain management. Current pain management is tramadol, muscle relaxer, gabapentin though still is in moderate to severe pain. walking with a cane. (2) HTN (hypertension): Code(s): I10 - Essential (primary) hypertension Qualifiers: Hypertension type: essential hypertension Qualified Code(s): I10 - Essential (primary) hypertension Plan: Patient's blood pressure low today in office. Will hold his irbesartan hydrochlorothiazide. Advised to monitor blood pressure at home. Will continue his current antihypertensive medication. Goal blood pressure to be below 140/90 (3) Hypertriglyceridemia: Code(s): E78.1 - Pure hyperglyceridemia Plan: Has moderate hypertriglyceridemia. Will recheck his lipid panel. Advised on reducing his high triglyceride foods in his diet. He will try [place] threes as well. (4) CONTRERAS (generalized anxiety disorder): Code(s): F41.1 - Generalized anxiety disorder Plan: As per HPI patient seems to have lost his follow-up with his mental health med provider now needs PCP to manage his mental health medications. He is on 3 mg total daily dosing of alprazolam. Did discuss the habit-forming nature of this medication and patient does agree. He does have a benzodiazepine dependency and is willing to work with me to reduce his daily dose of benzodiazepines. Now like to reduce his alprazolam dose to 4 mg daily. Next visit will discuss reducing his alprazolam to 1 mg b.i.d.. Medications: Refilled mupirocin 2% 1 appl topical BID 15 days 22 grams 0RF L01.00 - Impetigo, unspecified amlodipine 2.5 mg PO DAILY 90 days 90 tabs 1RF I10 - Essential (primary) hypertension tramadol 50 mg PO BID 30 days PRN 60 tabs 3RF pain M51.16 - Intervertebral disc disorders with radiculopathy, lumbar region gabapentin 800 mg PO BID 30 days 60 tabs 3RF G89.4 - Chronic pain syndrome, M96.1 - Postlaminectomy syndrome, not elsewhere classified Discontinued oxycodone Partial Fill upon patient request. Discontinued Reason: Doctor's Order 5 mg PO BID 7 days PRN 14 tabs 0RF pain M51.16 - Intervertebral disc disorders with radiculopathy, lumbar region On Hold irbesartan-hydrochlorothiazide 150-12.5 mg Hold Comment: Doctor's Order 2 tabs PO DAILY 90 days 180 tabs 3RF Patient Instructions: Goal: Blood pressure to be above 100/60 in below 140/90 Barriers: Chronic lower lumbar spine pain, Adherence to physical activity and healthy eating habits Coding Level of Care Code Est Pt Level 4 (66495) Diagnoses Lumbar disc disease with radiculopathy M51.16 Essential hypertension I10 Hypertension type: essential hypertension Hypertriglyceridemia E78.1 CONTRERAS (generalized anxiety disorder) F41.1
== END 2024-07-03 10:44 | disposition home or self-care (01) ==
PROVIDERS: PCP Physician Assistant; Visit Provider Physician Assistant
DX: M51.16 Intervertebral disc disorders with radiculopathy, lumbar region (principal); I10 Essential (primary) hypertension; E78.1 Pure hyperglyceridemia; F41.1 Generalized anxiety disorder
CPT/HCPCS: 99214

== ENCOUNTER 2024-09-02 13:46 | Outpatient (REF) | payer OTHER, SELFPAY ==
[2024-09-02 15:06] LABS: Alanine Aminotransferase 30 U/L (0-40); Albumin Level 4.4 g/dL (3.5-5.0); Alkaline Phosphatase 82 U/L (39-117); Anion Gap 12 (12-20); Aspartate Amino Transferase 21 U/L (5-37); Bilirubin Total 0.3 mg/dL (0.0-1.0); Blood Urea Nitrogen 16 mg/dL (9-16); Calcium 9.6 mg/dL (8.4-10.2); Carbon Dioxide 26 mmol/L (22-29); Chloride 108 mmol/L (96-108); Cholesterol 132 mg/dL (<200); Estimated Glomerular Filt Rate > 60; Glucose Fasting 99 mg/dL (60-99); HDL Cholesterol 43 mg/dL (>40); LDL Cholesterol Calculated 73 mg/dL (<100); Potassium 3.8 mmol/L (3.3-5.1); Sodium 142 mmol/L (135-145); Total Protein 6.9 g/dL (6.5-8.0); Triglycerides 80 mg/dL (<150)
[2024-09-02 15:36] LABS: Prostate Specific Antigen Scr 2.07 ng/mL (<0.05-4.0)
[2024-09-02 19:20] LABS: Creatinine Urine 164.92 mg/dL
== END 2024-09-02 13:47 | disposition home or self-care (01) ==
LOC: HO.LAB 13:46
PROVIDERS: PCP Physician Assistant; Visit Provider Physician Assistant
DX: F41.1 Generalized anxiety disorder (principal); M48.062 Spinal stenosis, lumbar region with neurogenic claudication; I10 Essential (primary) hypertension; E78.1 Pure hyperglyceridemia; F17.210 Nicotine dependence, cigarettes, uncomplicated; Z79.899 Other long term (current) drug therapy
CPT/HCPCS: 36415; 80053; 80061; 82043; 82570; 84153; 96127; 99212

== ENCOUNTER 2024-09-02 14:13 | Outpatient (AMB) | payer OTHER, SELFPAY ==
[2024-09-02 14:26] VITALS: BP 146/82; PULSE 109; O2SAT 95; BMI 33.1
--- NOTE | 2024-09-02 14:26 | A.OFFPC_ITS ---
Vital Signs 09/02/24 14:26 Height 6 ft 1 in Weight 251 lb BMI 33.1 BP 146/82 H Blood Pressure Location Lt brachial Position Sitting Pulse 109 H Pulse Source Pulse Oximeter Pulse Oximetry (%) 95 Oxygen Delivery Method Room Air Intake Visit Reasons: f/u pain management [facility] Compliance Coordinator Required: No Allergies No Known Allergies Allergy (Verified 09/02/24 14:51) Medication List - Last Reconciled 09/02/24 by Kaiden Bell PA-C albuterol sulfate 90 mcg/actuation (Ventolin HFA) 1 inh inhalation QID 30 days alclometasone 0.05% 1 appl topical BEDTIME 14 days alprazolam 4 mg (2 x 2 mg) PO BEDTIME 30 days amitriptyline 25 mg PO BEDTIME 30 days amlodipine 2.5 mg PO DAILY 90 days baclofen 20 mg PO BID 30 days benzoyl peroxide 10% 1 appl topical DAILY PRN 30 days blood pressure kit-extra large As directed cane As directed cholecalciferol (vitamin D3) 125 mcg PO DAILY 90 days CPAP (CPAP Machine/Device) As directed desonide 0.05% 1 appl topical DAILY 30 days dextromethorphan-guaifenesin 5-50 mg/5 mL (Robitussin Cough-Chest Congestion DM) 20 mL PO Q4-6H PRN 10 days diclofenac sodium 3% 1 appl topical BID 30 days docusate sodium (Colace) 100 mg PO BID 30 days gabapentin 800 mg PO BID 30 days irbesartan-hydrochlorothiazide 150-12.5 mg 2 tabs PO DAILY 90 days lidocaine 5% 1 patch topical BID 15 days mecobalamin (vitamin B12) 1,000 mcg sublingual DAILY metoprolol succinate ER 50 mg PO DAILY 90 days mirtazapine 15 mg PO DAILY 30 days mupirocin 2% 1 appl topical BID 15 days naloxone 4 mg/actuation sprays intranasal naproxen 500 mg PO BID 90 days nystatin-triamcinolone 100,000-0.1 unit/g-% 1 appl topical DAILY 30 days omeprazole 20 mg PO BEDTIME tramadol 50 mg PO BID PRN 30 days venlafaxine ER 150 mg PO QAM Tobacco use date assessed: 12/20/23 Dental Screening Dental Screen Date: 12/20/23 HPI f/u pain management HPI Details Patient is 58-year-old male here today for a follow up. Patient has a past medical history significant for hypertension, hyperlipidemia, generalized anxiety disorder, lumbar disc disease with radiculopathy down bilateral lower extremities. Chronic lumbar spine pain: Now followed by Dr. Zuniga. Has spoken with and been evaluated by spinal stimulator representatives and had Maze some adjustments that seems to have been helpful in reducing his pain. 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 Pain management--> The continues on tramadol 50 mg b.i.d. though feels it has been helpful. He has adjustments in his neuro spine stimulator which he feels has taken somewhat of a effect on reducing his pain. .. Anxiety: Now has PCP managing his anxiety medication. He has been able to reduce his benzodiazepine dosage down to 4 mg alprazolam daily. We did discuss the habit-forming nature of benzodiazepines and he does understand. He is agreeable to continue weaning down benzodiazepine dose HE STILL CONTINUES TO BE MOTIVATED TO WEAN OFF OF BENZODIAZEPINES PLAN: Current plan is to reduce his alprazolam dose to 3 mg daily dose which would be 1-1/2 2 mg alprazolam tablets per day (45 tablets for 30 day supply) .. Hypertension: Blood pressure noted to be slightly elevated today in office he reports he has resumed taking his hydrochlorothiazide and Arb. He reports he did not take his medication today . He will continue on amlodipine at cur rent dose. Advised to monitor blood pressure at home with goal blood pressure to be above 100/60 in below 140/90 [facility] Medical History Hx MRSA infection Obstructive sleep apnea Morbid obesity Chronic pain syndrome Postlaminectomy syndrome Hepatitis C Surgical History Hx of colonoscopy History of esophagogastroduodenoscopy (EGD) S/P insertion of spinal cord stimulator History of surgery History of laminectomy Family History Father Chronic mental illness Mental health disorder Mother No problems noted. Maternal Grandmother No problems noted. Maternal Grandfather No problems noted. Paternal Grandmother No problems noted. Paternal Grandfather No problems noted. 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 1. Little interest or pleasure in doing things: more than half the days 2. Feeling down, depressed, or hopeless: more than half the days 3. Trouble falling or staying asleep, or sleeping too much: nearly every day 4. Feeling tired or having little energy: nearly every day 5. Poor appetite or overeating: more than half the days 6. Feeling bad about yourself - or that you are a failure or have let yourself or your family down: nearly every day 7. Trouble concentrating on things, such as reading the newspaper or watching television: not at all 8. Moving or speaking so slowly that other people could have noticed. Or the opposite - being so fidgety or restless that you have been moving around a lot more than usual: more than half the days 9. Thoughts that you would be better off or of hurting yourself in some way: several days Total score: 18 Depression Screening Interpretation: Positive Depression Screening Follow-up: Existing condition and In treatment Depression Screening Done: Yes 19298 - PHQ-9 Billing: Yes Source: Developed by Drs. Marcos Crandall, Imani Jo, Nehemias Mckeon and colleagues, with an educational fernanda from [employer]. Thrive Questionnaire Date Thrive assessed: 12/20/23 AUDIT C Alcohol Use Questionnaire (AUDIT-C) 1. How often do you have a drink containing alcohol?: Never 2. How many drinks containing alcohol do you have on a typical day when you are drinking?: 1 or 2 (0) 3. How often do you have six or more drinks on one occasion?: Never Total Score: 0 Score Reviewed/Action Taken: No CONTRERAS-7 AMB Questionnaire CONTRERAS-7 Date CONTRERAS - 7 assessed: 12/20/23 Source: Developed by Drs. Marcos Crandall, Imani Jo, Nehemias Mckeon and colleagues, with an educational fernanda from [employer]. Review of Systems Const Denies headache(s) Eyes Denies loss of vision ENT Denies vertigo, Denies dizziness, Denies headache(s) and Denies sore throat Card Denies chest pain, Denies leg edema and Denies lightheadedness Resp Denies cough, Denies hemoptysis and Denies wheezing GI Denies abdominal pain, Denies melena, Denies constipation, Denies diarrhea and Denies vomiting Denies dysuria, Denies urinary frequency and Denies urinary urgency Musc Denies arthralgias, Denies joint swelling, Denies numbness and Denies tingling Neuro Denies Abnormal speech present, Denies behavioral changes, Denies vertigo, D enies dizziness, Denies headache(s), Denies loss of vision, Denies memory loss, Denies numbness and Denies tingling Psych Denies anxiety, Denies behavioral changes, Denies depression, Denies memory loss and Denies panic attacks Bradley/Lymph Denies easy bleeding and Denies easy bruising Aller/Immun Denies wheezing Physical exam (Primary Care) Vital Signs: Last Vital Signs Pulse 109 H 09/02/24 14:26 BP 146/82 H 09/02/24 14:26 Pulse Ox 95 09/02/24 14:26 Oxygen Delivery Method Room Air 09/02/24 14:26 BMI result Body Mass Index 33.1 Tobacco/Smoking Status: Tobacco use Status Tobacco use date assessed 12/20/23 09/02/24 14:31 Patient Tobacco Use Status Current everyday Tobacco 09/02/24 14:31 Tobacco use type Cigarette 09/02/24 14:31 e-Cigarette/Vaping Use Never Used 09/02/24 14:31 Are you ready to quit: No Tobacco cessation counseling provided: Yes Items discussed: Nicotine replacement Relapse Prevention: discussed the importance of a supportive environment, discussed negative mood or depression after quitting, weight gain after smoking is common and discussed dietary, exercise and/or lifestyle changes Number of minutes spent counselin CPT code: 56060 - 4-10 Minutes PHQ-9: PHQ-9 Score PHQ-9: Total score 18 09/02/24 14:54 Depression Screening Interpretation: Positive Depression Screening Follow-up: Existing condition and In treatment Thrive Assessment: Date of Thrive Assessment Date Thrive assessed 12/20/23 09/02/24 14:31 Const General: healthy appearing, no acute distress, alert and awake Nutritional Appearance: well nourished Orientation/consciousness: oriented to person, oriented to place and oriented to time HENMT Ears: TM's normal bilaterally General nose exam: Normal nasal mucous membranes and turbinates present Eyes Conjunctivae: conjunctivae normal Sclerae: sclerae normal Pupils: Equal, round and reactive pupils present Neck Neck: Yes no lymphadenopathy and Yes no JVD Thyroid: Thyroid normal Carotids: no bruits Resp Effort & Inspection: normal respiratory effort and not tachypneic Auscultation: no crackles, no rales, no rhonchi and no wheezes Cardio Rate: regular rate Rhythm: regular rhythm Heart sounds: no murmurs and normal S1 and S2 GI Palpation (GI): Soft to palpation, nontender, no hepatomegaly and no splenomegaly Auscultation: normal bowel sounds Skin General skin exam: no rashes or lesions noted and dry skin Neuro General: oriented to person, oriented to place and oriented to time Cranial nerves: Yes Equal, round and reactive pupils present Speech: No Abnormal speech present Gait exam (Neuro): Normal gait present Motor exam (neuro): no tremor noted Extrem Right upper extremity: full ROM Left upper extremity: full ROM Right lower extremity: full ROM; no edema Left lower extremity: full ROM; no edema Psych Mental Status: mental status grossly normal Speech and movement: Normal speech and movement present Affect: normal affect Attitude: cooperative Thought process: Normal thought process present Coding Level of Care Code Est Pt Level 4 (42774) Diagnoses CONTRERAS (generalized anxiety disorder) F41.1 Spinal stenosis of lumbar region with neurogenic claudication M48.062 Neurogenic claudication status: with neurogenic claudication Essential hypertension I10 Hypertension type: essential hypertension Smoker F17.200 Additional Codes Vital Signs *Quality* - CPT code: 36030 - 4-10 Minutes ([id number]) Assessment & Plan Assessment & Plan (1) CONTRERAS (generalized anxiety disorder): Code(s): F41.1 - Generalized anxiety disorder Category: Medical Plan: Patient continues on a slow benzodiazepine wean. He is willing to reduce his alprazolam down to 3 mg daily which will be 1-1/2 tablets daily. He plans on being off of benzodiazepine come 01/02/2025. (2) Lumbar spinal stenosis: Code(s): M48.061 - Spinal stenosis, lumbar region without neurogenic claudication Category: Medical Qualifiers: Neurogenic claudication status: with neurogenic claudication Qualified Code(s): M48.062 - Spinal stenosis, lumbar region with neurogenic claudication Plan: As per HPI patient reports back pain is fairly stable with the use of gabapentin, tramadol and baclofen. He reports his back pain is fairly well controlled. He has been a bit more active and walking with his dog. Has lost a few lb since last office visit. He does follow a lumbar spine surgeon Dr. Zuniga. -- >Apparently did have his lumbar spinal stimulator adjusted (3) HTN (hypertension): Code(s): I10 - Essential (primary) hypertension Category: Medical Qualifiers: Hypertension type: essential hypertension Qualified Code(s): I10 - Essential (primary) hypertension Plan: Patient's blood pressure slightly elevated today in office. He reports he forgot to take his blood pressure medications today and did get his labs. Goal blood pressures to be below 140/90 (4) Smoker: Code(s): F17.200 - Nicotine dependence, unspecified, uncomplicated Category: Social Hx Plan: Patient does admit to smoking 1 cigarette per week and does understand he needs to completely quit smoking. Medications: Changed From alprazolam 4 mg (2 x 2 mg) PO BEDTIME 30 days 60 tabs 2RF Insomnia F41.1 - Generalized anxiety disorder To alprazolam 3 mg (1.5 x 2 mg) PO BEDTIME 45 tabs 2RF Insomnia 30 days F41.1 - Generalized anxiety disorder Refilled gabapentin 800 mg PO BID 60 tabs 3RF 30 days G89.4 - Chronic pain syndrome, M96.1 - Postlaminectomy syndrome, not elsewhere classified tramadol 50 mg PO BID PRN 60 tabs 3RF pain 30 days M51.16 - Intervertebral disc disorders with radiculopathy, lumbar region amlodipine 2.5 mg PO DAILY 90 tabs 1RF 90 days I10 - Essential (primary) hypertension metoprolol succinate ER 50 mg PO DAILY 90 tabs 1RF 90 days I10 - Essential (primary) hypertension Resumed irbesartan-hydrochlorothiazide 150-12.5 mg 2 tabs PO DAILY 90 days 180 tabs 3RF
== END 2024-09-02 15:06 | disposition home or self-care (01) ==
PROVIDERS: PCP Physician Assistant; Visit Provider Physician Assistant
DX: F41.1 Generalized anxiety disorder (principal); M48.062 Spinal stenosis, lumbar region with neurogenic claudication; I10 Essential (primary) hypertension; F17.200 Nicotine dependence, unspecified, uncomplicated

== ENCOUNTER 2024-09-10 11:10 | Emergency (ER) | payer OTHER, SELFPAY ==
--- NOTE | ~2024-09-10 | CT_ITS ---
EXAMINATION: CT LUMBAR SPINE WITHOUT CONTRAST CLINICAL INFORMATION: Back pain COMPARISON: 03/07/2024 TECHNIQUE: Continuous helical imaging obtained through the lumbar spine. Reconstructed images performed in the coronal and sagittal planes. This CT examination was performed using dose optimization techniques as appropriate, variously including the following: *Automated exposure control *Adjustment of mA and/or kV according to patient size (this includes techniques or standardized protocols for targeted exams where dose is matched to indication/reason for exam; i.e. 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 Cholecystectomy clips. Fecal retention. LUMBAR SPINE: Spinal stimulator device. There is straightening of normal lordosis and unchanged moderate thoracolumbar scoliosis. Of a 12 Overall vertebral bodies are maintained in height with fusion of L2 and L3. Multilevel spurring, endplate sclerosis and disc space narrowings. No paravertebral soft tissue swelling or abnormal soft tissue collections. Right-sided transpedicular screws L2 and L4 with posterior stabilizing surgical hardware are stable in position. No evidence of loosening or failure. T11/12: No neuroforaminal or spinal canal narrowings. T12/L1: Decreased disc space again seen spurring and endplate sclerosis. Mild left-sided disc bulge. No significant thecal sac compression or neuroforaminal compromise. L1/L2: Disc space narrowing with vacuum disc phenomenon. Mild left sided disc bulge. No significant spinal canal or neuroforaminal compromise. L2/L3: Near-total obliteration of the disc space with unchanged right-sided L2 on L3 displacement. No significant thecal sac compression. Bilateral L3 laminectomies and spinous process resections again seen. L3/L4: Facet hypertrophy with mild thecal sac compression. Bilateral L4 postlaminectomy changes and spinous process resections. L4/L5: Disc space narrowing with vacuum disc phenomenon. Unchanged moderately severe thecal sac compression with ligamentum flavum, facet hypertrophy and spurring. Redemonstration right neuroforaminal compromise. L5/S1: Bulging disc. Mild thecal sac compression with ligamentum flavum and facet hypertrophy. No significant neuroforaminal narrowings. OTHER FINDINGS: Vascular calcifications nonaneurysmal aorta. Tortuous iliac arteries. Caliber inferior vena cava. 4.5 cm left renal cyst. CT/CT lumbar spine wo IV con IMPRESSION: 1. No acute bony pathology lumbar spine or interval change. 2. Unchanged lumbar lordotic straightening, scoliosis and multilevel degenerative changes. 3. Redemonstration moderately severe thecal sac compression L4-5 with right-sided neural foraminal compromise in the setting of stable postoperative changes. Electronically signed by: Wendy Jaramillo MD 09/10/2024 04:51 PM EDT
[2024-09-10 11:14] VITALS: BP 142/90; PULSE 87; O2SAT 97
[2024-09-10 11:16] VITALS: BP 135/81; PULSE 77; RESP 19; TEMP 36.6; O2SAT 98; BMI 35.9
--- NOTE | 2024-09-10 11:28 | PC.NURSE ---
Patient brought in by EMS from [place]. Patient reports hx of spinal fusion in 2016 in [place] at [facility] . Patient repors has been in the hospital and yesterday had x2 episodes of urinary incontinence and went to the shower to wash up and he slipped (did not fall) and heard back crack. Reports woke up this AM walked to common area but the pain was 10/10 in lower back, left hip , and left leg. In ED patient reports unable to lift left leg, does not feel sensation in left leg. Able to lift right leg, able to feel sensation in right leg. Provider notified. Section from [place] placed in chart, 1:1 at bedside
--- OUTSIDE RECORDS SUMMARY | 2024-09-10 11:30 | XMS_ITS | Patient Health Record ---
Author Organization [facility] Address [address], [place] [id number] Support Name Relationship Address Phone Fred jones Emergency Contact Unknown Miguel Church Guarantor Unknown [phone] REASON FOR REFERRAL No Information SOCIAL HISTORY Sex Assigned At : Social History Observation Description Sex Assigned At Unknown PLAN OF TREATMENT No Information Insurance Providers Payer Name Payer Address Payer Phone Subscriber Number Group Number Insured Name Patient Relationship to Insured Coverage Start Date Coverage End Date [place] Standard [address] [place] [address] Miguel Mackey Self - patient is the insured
[2024-09-10 12:29] LABS: Appearance Urine Clear; Color Urine Yellow; Glucose Urine UA Negative (Negative); Leukocyte Esterase Urine Negative (Negative); Nitrite Urine Negative (Negative); PH 5.5 (5.0-9.0); Specific Gravity - Urine 1.015 (1.005-1.025); Urine Blood Negative (Negative); Urine Ketones Negative (Negative); Urine Protein Negative (Neg-Trace)
--- NOTE | 2024-09-10 13:08 | ED_ITS ---
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 Patient states that this morning at 2:00 a.m. he awoke in his own urine which is very typical of him. He states that he went back to sleep, and then attempted to get up from his sleep several hours later, he felt as though he needed to urinate, he got up from his bed however was unable to make it to the bathroom in time and lost control of his bladder. He states that he took a shower this morning, and slipped but was able to catch himself before falling to the ground however in that process he felt a cracking sensation in his back. Patient reports that he has a history of chronic back pain which often times radiates down into his left leg however states that today his symptoms are different, reports that he has decreased sensation in his left leg entirely which is atypical of him. He states that before the slip in the shower he did have back pain that radiated into his left leg which is chronic for him however states that the decreased sensation in his left leg started after the shower. He denies any fevers, chills, chest pain, shortness of breath. Denies any abdominal pain. Denies loss of bladder control. No numbness and tingling into his groin. He states that he is currently at [facility] due to mental illness, and states that he was having decreased sensation in his left leg, and staff members noticed this and called 911 No other complaints or concerns at this time. MD elicited complaint: back pain Pertinent past history: back surgery and neurological deficit Timing: constant Severity: moderate Quality: aching Location: lumbar spine Exacerbating factors: none Relieving factors: none Associated symptoms: denies other symptoms Related Data Home Medications ?Medication ?Instructions ?Recorded ?Confirmed alprazolam 2 mg tablet 4 mg PO BEDTIME Insomnia 09/10/24 09/10/24 cyanocobalamin (vitamin B-12) 2,000 mcg PO DAILY 09/10/24 09/10/24 1,000 mcg tablet (Vitamin B-12) divalproex 250 mg tablet,delayed 250 mg PO BID 09/10/24 09/10/24 release (Depakote) gabapentin 800 mg tablet 1,600 mg PO BID 09/10/24 09/10/24 hydroxyzine HCl 50 mg tablet 50 mg PO Q6H PRN anxiety 09/10/24 09/10/24 lidocaine 4 % topical patch 1 patch topical DAILY PRN Pain 09/10/24 09/10/24 prazosin 1 mg capsule 1 mg PO BEDTIME 09/10/24 09/10/24 risperidone 1 mg tablet (Risperdal) 1 mg PO BID 09/10/24 09/10/24 trazodone 50 mg tablet 50 mg PO BEDTIME PRN Sleep 09/10/24 09/10/24 Previous Rx's ?Medication ?Instructions ?Recorded blood pressure kit-extra large #1 ea 06/29/21 cane #1 ea 06/02/22 CPAP (CPAP Machine/Device) #1 ea 01/09/23 baclofen 20 mg tablet 20 mg PO BID 30 days #60 tabs 04/22/24 cholecalciferol (vitamin D3) 125 125 mcg PO DAILY 90 days #90 caps 04/22/24 mcg (5,000 unit) capsule amlodipine 2.5 mg tablet 2.5 mg PO DAILY 90 days #90 tabs 09/02/24 metoprolol succinate 50 mg 50 mg PO DAILY 90 days #90 tabs 09/02/24 tablet,extended release 24 hr tramadol 50 mg tablet 50 mg PO BID PRN pain 30 days #60 09/02/24 tabs Allergies Allergy/AdvReac Type Severity Reaction Status Date / Time No Known Allergies Allergy Verified 09/10/24 11:21 Review of Systems 2 Review of Systems: Yes all other systems are reviewed and are negative Constitutional: Constitutional: Reports as per [facility] Past Medical History Attestation statement: The following information was validated with the patient. Medical History Hx MRSA infection Obstructive sleep apnea Morbid obesity Chronic pain syndrome Postlaminectomy syndrome Hepatitis C Surgical History Hx of colonoscopy History of esophagogastroduodenoscopy (EGD) S/P insertion of spinal cord stimulator History of surgery History of laminectomy Family History Family History Father Chronic mental illness Mental health disorder Mother No problems noted. Maternal Grandmother No problems noted. Maternal Grandfather No problems noted. Paternal Grandmother No problems noted. Paternal Grandfather No problems noted. 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 [employer] Cognitive needs: No Hearing needs: No Vision needs: Yes (glasses ) Physical Exam 2 Vital Signs: Vital Signs: Last Vital Signs Temp 98 F 09/11/24 13:22 Pulse 88 09/11/24 13:22 Resp 18 09/11/24 13:22 BP 121/74 09/11/24 13:22 Pulse Ox 95 09/11/24 13:22 O2 Del Method Room Air 09/11/24 13:22 BMI result Body Mass Index 35.9 Const: General: cooperative, comfortable and no acute distress O rientation/consciousness: patient oriented x3 Limitations: no limitations HEENT: Head: Yes normal to inspection, Yes normocephalic and Yes atraumatic Ears: hearing grossly normal bilaterally General nose exam: Normal external nose present Face and sinus: Yes normal facial exam Mouth: Normal oral and palatal mucosa present, oropharynx normal and moist mucous membranes Throat: Yes posterior oropharynx normal Eyes: General: appearance normal, both eyes and all related structures E yelids: Yes eyelids normal Conjunctivae: conjunctivae normal Sclerae: s clerae normal Pupils: Equal, round and reactive pupils present EOM: EOMs intact bilaterally Neck: Neck: Yes normal visual inspection, Yes full ROM and Yes no lymphadenopathy Lymphatic: no lymphadenopathy noted Chest: Chest palpation & inspection: normal inspection of the chest Resp: Effort & Inspection: normal respiratory effort and able to speak in complete sentences Auscultation: clear to auscultation bilaterally, no crackles, no rales, no rhonchi and no wheezes Cardio: Rate: regular rate Rhythm: regular rhythm Heart sounds: S1 normal heart sound present and S2 normal heart sound present GI: Inspection: Yes normal to inspection Back/Spine/Pelvis: Other: Tenderness palpation along the midline spine, with well-healed surgical spinal incisions noted. No overlying erythema or warmth. DTR 2+. Subjective decreased sensation to the entire lower leg on the left. Strong DP pulse. Skin: General skin exam: no rashes or lesions noted Trauma: no lacerations or abrasions Wounds: no wounds Neuro: General: patient oriented x3 and moves all extremities Cranial nerves: Yes CN's II-XII intact bilaterally and Yes Equal, round and reactive pupils present Cognition (Neuro): normal cognition Extrem: Other: No calf tenderness, strong DP pulse. General: Yes normal to inspection Right upper extremity: normal to inspection Left upper extremity: normal to inspection Right lower extremity: normal to inspection Left lower extremity: normal to inspection Course Reevaluation(s) Reevaluation #1: MRI was ordered however patient does have a spinal stimulator. Patient does not have the remote to it and it has been shut off for the last 2 months. In order for him to have the MRI, he needs the remote present and the stimulator and remote must be fully charged. Multiple attempts made out to partner to see if patient's partner can bring in charge remote however partners phone is currently out of service. CT lumbar spine ordered. Time: 14:54 Reevaluation #2: Bladder scan was performed, bladder with 500 cc, patient went to restroom, and fully able to empty out bladder, bladder is now empty. Therefore patient clinically is not retaining urine. CT scan ordered and pending. Time: 15:46 Reevaluation #3: CT lumbar spine still pending at this time. Patient re-evaluated, his pain is well controlled. He is willing to attempt to ambulate however we will await CT scan report. Additional Reevaluation(s): Ct scan reviewed as no acute bony abnormalities. There is unchanged lumbar lowered disc straightening, scoliosis and multilevel degenerative changes. Redemonstration moderately severe thecal sac compression L4 5 with right-sided neural foraminal compromise in the setting of stable post op changes. Patient reports that he is feeling much better. He was able to get himself out of bed, and take multiple steps to and from his bed. He is ambulatory with steady gait. However he would benefit from PT Case Management evaluation for safe disposition. He is currently residing in the psychiatric facility of [place] therefore it is unclear what sort of physical therapy/rehabilitation care he has. Discussed overall workup with my attending physician, Dr. Thompson. Given that he had a bladder scan that did not indicate any urinary retention, and he is ambulatory, likely that this is a acute neurologic emergency requiring immediate intervention however patient would benefit from outpatient MRI through his community integration specialist. At this time, patient medically cleared awaiting PT Case Management disposition. physician observation initiated. 09/11/2024 0700 Mili Mercedes PA-C: Observation continues. Patient continues to be followed by case management. 09/11/2024 1000 Mili Mercedes PA-C: Observation care revealed the the patient does not meet medical necessity for hospitalization. Final disposition discussed with the patient who verbalized understanding and agreement. Patient completed observation care at 1000, total time spent in observation care was 16 hours and 32 minutes. Medications Administered Discontinued Medications Generic Name Dose Route Start Last Admin Trade Name Freq PRN Reason Stop Dose Admin Acetaminophen 650 mg 09/10/24 16:29 09/10/24 16:33 Acetaminophen 325 Mg Tablet PO 09/10/24 16:30 650 mg ONCE ONE Administration Alprazolam 4 mg 09/10/24 22:00 09/10/24 23:13 Alprazolam 0.5 Mg Tablet PO 4 mg BEDTIME SUKUMAR Administration Amlodipine Besylate 2.5 mg 09/11/24 09:00 09/11/24 08:49 Amlodipine Besylate 2.5 Mg Tablet PO 2.5 mg DAILY SUKUMAR Administration Protocol Baclofen 20 mg 09/10/24 22:00 09/11/24 08:50 Baclofen 20 Mg Tablet PO 20 mg BID SUKUMAR Administration Cyanocobalamin 2,000 mcg 09/11/24 09:00 09/11/24 08:49 Cyanocobalamin (Vitamin B-12) 1,000 Mcg Tablet PO 2,000 mcg DAILY SUKUMAR Administration Divalproex Sodium 250 mg 09/10/24 22:00 09/11/24 08:50 Divalproex Sodium 250 Mg Tablet.Dr PO 250 mg BID SUKUMAR Administration Gabapentin 1,600 mg 09/10/24 22:00 09/11/24 08:49 Gabapentin 400 Mg Capsule PO 1,600 mg BID SUKUMAR Administration Lidocaine 1 patch 09/10/24 21:58 09/11/24 09:04 Lidocaine 4 % Patch Adh..Patch TRANSDERMA 1 patch DAILY PRN Administration Pain, Mild (Pain Scale 1-3) Protocol Metoprolol Succinate 50 mg 09/11/24 09:00 09/11/24 08:49 Metoprolol Succinate Er 50 Mg Tab.Er.24h PO 50 mg DAILY SUKUMAR Administration Protocol Morphine Sulfate 4 mg 09/10/24 14:00 09/10/24 14:06 Morphine Sulfate 4 Mg/Ml Cartridge IVPUSH 09/10/24 14:01 4 mg ONCE ONE Administration Protocol Morphine Sulfate 4 mg 09/10/24 20:36 09/10/24 20:56 Morphine Sulfate 4 Mg/Ml Cartridge IVPUSH 09/10/24 20:37 4 mg ONCE ONE Administration Protocol Oxycodone HCl 5 mg 09/11/24 06:52 09/11/24 07:28 Oxycodone Hcl Immed Release 5 Mg Tablet PO 09/11/24 06:53 5 mg ONCE ONE Administration Prazosin HCl 1 mg 09/10/24 22:00 09/10/24 23:16 Prazosin Hcl 1 Mg Capsule PO 1 mg BEDTIME SUKUMAR Administration Protocol Risperidone 1 mg 09/10/24 22:00 09/11/24 08:49 Risperidone 1 Mg Tablet PO 1 mg BID SUKUMAR Administration Tramadol HCl 50 mg 09/10/24 21:58 09/11/24 12:35 Tramadol Hcl 50 Mg Tablet PO 50 mg BID PRN Administration Pain, Severe (Pain Scale 7-10) Vitamin D 125 mcg 09/11/24 09:00 09/11/24 08:49 Cholecalciferol (Vitamin D3) 25 Mcg Tablet PO 125 mcg DAILY SUKUMAR Administration Medical Decision Making Medical Decision Making MDM Narrative: This is a 59-year-old male who presents emergency department with complaints of back pain and urinary incontinence. On arrival, vital signs within normal limits. He is speaking in full sentences under no acute distress. Patient does report back pain, and 2 episodes of urinary incontinence. He states that he has been unable to ambulate since hearing a crack while in the shower this morning. On arrival, vital signs within normal limits. He is speaking in full sentences under no acute distress. He has a history of chronic back pain however states that decreased sensation in left leg is different than previous back pain in the past. Differential diagnoses include fracture, lumbar radiculopathy, cauda equina syndrome, conus medullaris syndrome. Presentation not consistent with malignancy (lack of history of malignancy, lack of B symptoms). Given slip in shower this morning with cracking noise, patient requiring diagnostic imaging. It also is concerning that he has decreased sensation to his left leg and trouble with ambulation as well as 2 episodes of urinary incontinence therefore cauda equina syndrome and conus medullaris syndrome was considered. MRI was ordered as well as labs. Patient medicated with morphine 4 mg IV Differential Diagnosis Differential Diagnoses: The differential diagnosis associated with the presentation includes Cauda equina syndrome, disc herniation, fracture Lab Data MDM Lab Attestation statement: I reviewed the patient's lab results. UA negative for infection, no leukocytosis, microcytic anemia noted with an H&H of/sprain inflammatory markers within normal limits. 09/10/24 13:33 09/10/24 13:33 Labs: Lab Results 09/10/24 09/10/24 09/10/24 Range/Units 12:21 13:33 13:34 WBC 6.1 (4.8-10.8) X10*3/uL RBC 4.93 (4.60-5.80) X10*6/uL Hgb 12.4 L (14.0-18.0) g/dl Hct 39.0 L (42.0-52.0) % MCV 79.1 L (80.0-98.0) fL MCH 25.2 L (27.0-33.0) pg MCHC 31.8 (31.0-36.0) g/dl RDW 15.3 (11.0-16.0) % Plt Count 246 (160-400) X10*3/uL MPV 9.7 (9.4-12.4) fL Immature Gran % (Auto) 0.3 (0.0-0.4) % Neut % (Auto) 46.3 (45-73) % Lymph % (Auto) 37.4 (20-40) % [place] % (Auto) 10.2 (2-11) % Eos % (Auto) 5.1 H (0-4) % Baso % (Auto) 0.7 (0-2) % Lymph # (Auto) 2.3 (1.2-4.9) X10*3/uL [place] # (Auto) 0.6 (0.1-1.2) X10*3/uL Eos # (Auto) 0.3 (0.0-0.4) X10*3/uL Baso # (Auto) 0.0 (0.0-0.2) X10*3/uL Abs Immat Gran (auto) 0.02 (0.00-0.03) X10*3/uL Absolute Neuts (auto) 2.8 (2.0-8.3) x10*3/uL Absolute Nucleated RBC 0.000 (0.0-0.012) X10*3/uL Nucleated RBC % (auto) 0.0 (0.0-0.2) /100WBC ESR 4 (0-15) MM/HR Sodium 141 (135-145) mmol/L Potassium 3.8 (3.3-5.1) mmol/L Chloride 110 H (96-108) mmol/L Carbon Dioxide 22 (22-29) mmol/L Anion Gap 13 (12-20) BUN 15 (9-16) mg/dL Creatinine 0.89 (0.5-1.4) mg/dL Estim Creat Clear Calc 116.5 Estimated GFR > 60 Random Glucose 131 H (60-115) mg/dL Calcium 9.0 D (8.4-10.2) mg/dL Magnesium 2.2 2.2 (1.6-2.6) mg/dL Total Bilirubin 0.3 (0.0-1.0) mg/dL AST 20 (5-37) U/L ALT 25 (0-40) U/L Alkaline Phosphatase 79 (39-117) U/L C-Reactive Protein 0.27 (< or = 0.50) mg/dL Total Protein 6.6 (6.5-8.0) g/dL Albumin 3.9 (3.5-5.0) g/dL Urine Color Yellow Urine Appearance Clear Urine pH 5.5 (5.0-9.0) Ur Specific [place] 1.015 (1.005-1.025) Urine Protein Negative (Neg-Trace) mg/dL Urine Glucose (UA) Negative (Negative) mg/dL Urine Ketones Negative (Negative) mg/dL Urine Blood Negative (Negative) Urine Nitrite Negative (Negative) Ur Leukocyte Esterase Negative (Negative) COVID-19 ([facility]) (Negative) COVID-19 Clin Com 09/11/24 Range/Units 09:35 WBC (4.8-10.8) X10*3/uL RBC (4.60-5.80) X10*6/uL Hgb (14.0-18.0) g/dl Hct (42.0-52.0) % MCV (80.0-98.0) fL MCH (27.0-33.0) pg MCHC (31.0-36.0) g/dl RDW (11.0-16.0) % Plt Count (160-400) X10*3/uL MPV (9.4-12.4) fL Immature Gran % (Auto) (0.0-0.4) % Neut % (Auto) (45-73) % Lymph % (Auto) (20-40) % [place] % (Auto) (2-11) % Eos % (Auto) (0-4) % Baso % (Auto) (0-2) % Lymph # (Auto) (1.2-4.9) X10*3/uL [place] # (Auto) (0.1-1.2) X10*3/uL Eos # (Auto) (0.0-0.4) X10*3/uL Baso # (Auto) (0.0-0.2) X10*3/uL Abs Immat Gran (auto) (0.00-0.03) X10*3/uL Absolute Neuts (auto) (2.0-8.3) x10*3/uL Absolute Nucleated RBC (0.0-0.012) X10*3/uL Nucleated RBC % (auto) (0.0-0.2) /100WBC ESR (0-15) MM/HR Sodium (135-145) mmol/L Potassium (3.3-5.1) mmol/L Chloride (96-108) mmol/L Carbon Dioxide (22-29) mmol/L Anion Gap (12-20) BUN (9-16) mg/dL Creatinine (0.5-1.4) mg/dL Estim Creat Clear Calc Estimated GFR Random Glucose (60-115) mg/dL Calcium (8.4-10.2) mg/dL Magnesium (1.6-2.6) mg/dL Total Bilirubin (0.0-1.0) mg/dL AST (5-37) U/L ALT (0-40) U/L Alkaline Phosphatase (39-117) U/L C-Reactive Protein (< or = 0.50) mg/dL Total Protein (6.5-8.0) g/dL Albumin (3.5-5.0) g/dL Urine Color Urine Appearance Urine pH (5.0-9.0) Ur Specific [place] (1.005-1.025) Urine Protein (Neg-Trace) mg/dL Urine Glucose (UA) (Negative) mg/dL Urine Ketones (Negative) mg/dL Urine Blood (Negative) Urine Nitrite (Negative) Ur Leukocyte Esterase (Negative) COVID-19 ([facility]) Negative (Negative) COVID-19 Clin Com See Note Radiology Impression Discussion of test interpretation with radiology: I have reviewed the radiologist's reading. Radiologist Impression: CT/CT lumbar spine wo IV con IMPRESSION: 1. No acute bony pathology lumbar spine or interval change. 2. Unchanged lumbar lordotic straightening, scoliosis and multilevel degenerative changes. 3. Redemonstration moderately severe thecal sac compression L4-5 with right-sided neural foraminal compromise in the setting of stable postoperative changes. Electronically signed by: Wendy Jaramillo MD 09/10/2024 04:51 PM EDT Dictated By: Wendy Jaramillo MD Critical Care Time Critical Care Time Critical Care Time: Yes Total Critical Care Time: 35 Attestation: I have personally provided critical care time exclusive of time spent on separately billable procedures. Time includes review of lab data, radiology results, discussion with consultants, and monitoring for potential decompensation. Intervention performed as documented. Discharge Plan Discharge Clinical Impression: Back pain Patient Disposition: Xfer Psychiatric Hosp Transfer Details: BACK TO: [place] Instructions: Back Pain (ED) Additional Instructions: You were seen in the emergency department due to back pain. Your CT scan does not show any new findings, however he should have an MRI performed outpatient soon for assessment. Please utilize all resources provided by the case management team. Please follow-up with your community integration specialist as well as pain management nurse. If any new or worsening symptoms occur including but not limited to worsening back pain, weakness in your lower legs, numbness tingling, or any other concerning symptoms, please seek emergent care Prescriptions: No Action (DME) CPAP Machine/Device Device See Rx Instructions .Route Qty: 1 0RF Rx Instructions: As directed divalproex [Depakote] 250 mg Tablet,Delayed Release (Dr/Ec) 250 mg PO BID trazodone 50 mg Tablet 50 mg PO BEDTIME PRN (Reason: Sleep) gabapentin 800 mg tablet 1,600 mg PO BID alprazolam 2 mg tablet 4 mg PO BEDTIME lidocaine 4 % Adhesive Patch,Medicated 1 patch TOPICAL DAILY PRN (Reason: Pain) prazosin 1 mg Capsule 1 mg PO BEDTIME cyanocobalamin (vitamin B-12) [Vitamin B-12] 1,000 mcg Tablet 2,000 mcg PO DAILY hydroxyzine HCl 50 mg tablet 50 mg PO Q6H PRN (Reason: anxiety) risperidone [Risperdal] 1 mg Tablet 1 mg PO BID (DME) blood pressure kit-extra large Kit See Rx Instructions .Route Qty: 1 0RF Rx Instructions: As directed cholecalciferol (vitamin D3) 125 mcg (5,000 unit) capsule 125 mcg PO DAILY 90 Days Qty: 90 1RF baclofen 20 mg tablet 20 mg PO BID 30 Days Qty: 60 3RF (DME) cane Device See Rx Instructions .Route Qty: 1 0RF Rx Instructions: As directed tramadol 50 mg tablet 50 mg PO BID PRN (Reason: pain) 30 Days Qty: 60 3RF amlodipine 2.5 mg tablet 2.5 mg PO DAILY 90 Days Qty: 90 1RF metoprolol succinate 50 mg tablet extended release 24 hr 50 mg PO DAILY 90 Days Qty: 90 1RF Referrals: [facility] [Provider Group] (Call to establish and follow up with a community integration specialist. ) [facility] [Outside] Kaiden Bell PA-C [Primary Care Provider] - Interventions: Acute Care Transfer Worksheet (ED) Last Done: 09/11/24 13:22 Discharge Date/Time: 09/11/24 13:24 Print Language: Ethiopian
[2024-09-10 13:39] LABS: MANUAL DIFF FLAG NO
[2024-09-10 13:40] LABS: Basophils Percent Auto 0.7 % (0-2); Eosinophils Absolute Auto 0.3 X10*3/uL (0.0-0.4); Eosinophils Percent Auto 5.1 % (0-4); Hemoglobin 12.4 g/dl (14.0-18.0); Imm Gran Abs Auto 0.02 X10*3/uL (0.00-0.03); Imm Gran Pct Auto 0.3 % (0.0-0.4); Lymphocytes Absolute Auto 2.3 X10*3/uL (1.2-4.9); Lymphocytes Percent Auto 37.4 % (20-40); Mean Corpuscular HGB Conc 31.8 g/dl (31.0-36.0); Mean Corpuscular Hemoglobin 25.2 pg (27.0-33.0); Mean Corpuscular Volume 79.1 fL (80.0-98.0); Mean Platelet Volume 9.7 fL (9.4-12.4); Monocytes Absolute Auto 0.6 X10*3/uL (0.1-1.2); Monocytes Percent Auto 10.2 % (2-11); Neutrophils Absolute Auto 2.8 x10*3/uL (2.0-8.3); Neutrophils Percent Auto 46.3 % (45-73); Platelet Count 246 X10*3/uL (160-400); Red Blood Count 4.93 X10*6/uL (4.60-5.80); Red Cell Distribution Width 15.3 % (11.0-16.0); White Blood Count 6.1 X10*3/uL (4.8-10.8)
--- NOTE | 2024-09-10 13:54 | PC.NURSE ---
MRI screening form compelted with patient and faxed to MRI, patient requesting pain medication provider aware. Patient requesting for this RN to call [facility] and update on current condition.
--- NOTE | 2024-09-10 13:56 | PC.NURSE ---
Number provided for ([phone]) ringing busy at this time
[2024-09-10 13:58] LABS: C Reactive Protein 0.27 mg/dL (< or = 0.50); Magnesium 2.2 mg/dL (1.6-2.6)
[2024-09-10 14:00] LABS: Alanine Aminotransferase 25 U/L (0-40); Albumin Level 3.9 g/dL (3.5-5.0); Alkaline Phosphatase 79 U/L (39-117); Anion Gap 13 (12-20); Aspartate Amino Transferase 20 U/L (5-37); Bilirubin Total 0.3 mg/dL (0.0-1.0); Blood Urea Nitrogen 15 mg/dL (9-16); Carbon Dioxide 22 mmol/L (22-29); Chloride 110 mmol/L (96-108); Creatinine Clr Calc Pharmacy 116.5; Estimated Glomerular Filt Rate > 60; Glucose Random 131 mg/dL (60-115); Potassium 3.8 mmol/L (3.3-5.1); Sodium 141 mmol/L (135-145); Total Protein 6.6 g/dL (6.5-8.0)
[2024-09-10] MEDS: Morphine Sulfate 4 MG/ML CARTRIDGE IVPUSH ×2 (14:06→20:56)
[2024-09-10 14:40] LABS: Erythrocyte Sedimentation Rate 4 MM/HR (0-15)
[2024-09-10 14:53] LABS: Magnesium 2.2 mg/dL (1.6-2.6)
--- NOTE | 2024-09-10 15:09 | PC.NURSE ---
Patient reports spinal stimulator was placed at [facility] in [place], reports it was turned off 2 months ago
--- NOTE | 2024-09-10 15:20 | PC.NURSE ---
Multiple attempts to reach to bring in stimulator remote unsuccessful at this time
--- NOTE | 2024-09-10 15:25 | PC.NURSE ---
Bladder scanned for 600mls, voided over 600mls, bladder scanned post void for 0mls
--- NOTE | 2024-09-10 15:58 | PC.NURSE ---
Called phillip mcknight , RN at [place] [facility] provided two additional numbers for patients - both numbers tried and do not belong to patients
[2024-09-10] MEDS: Acetaminophen 325 MG TABLET 650 MG PO (16:33)
--- NOTE | 2024-09-10 17:55 | PC.NURSE ---
Report given to ronaldo RN. Patients at bedside, spoke with Matt on [facility] at [place]. Aware that patient will be staying overnight. Bill stating that Miguel will not lose his bed
[2024-09-10 18:07] VITALS: BP 138/81; PULSE 88; RESP 16; TEMP 36.4; O2SAT 98
[2024-09-10 20:57] VITALS: BP 136/78; PULSE 88; RESP 20; TEMP 36.8; O2SAT 96
--- NOTE | 2024-09-10 21:37 | PHA.MEDREC ---
Addendum entered by Luis Eduardo Mccoy corey 09/10/24 21:46: med rec reviewed Original Note: Pharmacy Consult ? Medication Reconciliation Pharmacy has completed the medication reconciliation. Utilized list from [place] to confirm med list. Called [facility] to confirm dose on Alprazolam. Spoke to Jamir from [facility] and he confirm that they where giving patient Alprazolam 4 mg daily. prior to yoder patients dose was lowered to [address] Bell. (per visit notes) claims also reflect this. left on what patient was getting at [facility].
[2024-09-10] MEDS: ALPRAZolam 0.5 MG TABLET 4 MG PO (23:13)
[2024-09-10] MEDS: Gabapentin 400 MG CAPSULE 1600 MG PO (23:15)
[2024-09-10] MEDS: risperiDONE 1 MG TABLET PO (23:15)
[2024-09-10 23:16] VITALS: BP 146/85
[2024-09-10] MEDS: Baclofen 20 MG TABLET PO (23:16)
[2024-09-10] MEDS: Prazosin HCL 1 MG CAPSULE PO (23:16)
[2024-09-10] MEDS: Divalproex Sodium 250 MG TABLET.DR PO (23:18)
[2024-09-10] MEDS: traMADoL HCL 50 MG TABLET PO (23:20)
[2024-09-10] MEDS: Lidocaine 4 % Patch ADH..PATCH 1 PATCH TRANSDERMA (23:21)
[2024-09-11 05:17] VITALS: BP 155/85; PULSE 101; RESP 18; TEMP 36.6; O2SAT 96
--- NOTE | 2024-09-11 06:11 | PC.NURSE ---
second message sent to provider regarding pt pain. no new orders at this time
--- NOTE | 2024-09-11 06:43 | PC.NURSE ---
pt resting quietly in no acute distress, reading a book. sitter at bedside
[2024-09-11] MEDS: oxyCODONE HCl Immed Release 5 MG TABLET PO (07:28)
[2024-09-11] MEDS: amLODIPine Besylate 2.5 MG TABLET PO (08:49)
[2024-09-11] MEDS: risperiDONE 1 MG TABLET PO (08:49)
[2024-09-11] MEDS: Cholecalciferol (Vitamin D3) 25 MCG TABLET 125 MCG PO (08:49)
[2024-09-11] MEDS: Metoprolol Succinate ER 50 MG TAB.ER.24H PO (08:49)
[2024-09-11] MEDS: Gabapentin 400 MG CAPSULE 1600 MG PO (08:49)
[2024-09-11] MEDS: Cyanocobalamin (Vitamin B-12) 1,000 MCG TABLET 2000 MCG PO (08:49)
[2024-09-11] MEDS: Divalproex Sodium 250 MG TABLET.DR PO (08:50)
[2024-09-11] MEDS: Baclofen 20 MG TABLET PO (08:50)
--- NOTE | 2024-09-11 09:00 | PC.NURSE ---
Pt ambulatory around unit with PT. consumed all of breakfast. 1:1 sitter with pt at all times.
[2024-09-11] MEDS: Lidocaine 4 % Patch ADH..PATCH 1 PATCH TRANSDERMA (09:04)
[2024-09-11 10:07] LABS: COVID-19 Test Negative (Negative); IDNOW Serial# 152EDE1D
--- NOTE | 2024-09-11 10:47 | MHC.CM.ED ---
Received case management consult overnight. Patient came to the ER from [facility] due to back pain. Work up essentially negative. Physical therapy eval completed. Patient can safely return to [facility]. T/W spoke with Bill of [facility]. Patient can return to facility. ER d/c faxed to [phone]. Asaf BACON booked for 1pm. [facility] with chart. Patient, Yuly RUANO and Mili FONSECA aware. Continue to monitor for d/c needs.
[2024-09-11] MEDS: traMADoL HCL 50 MG TABLET PO (12:35)
[2024-09-11 12:56] VITALS: BP 121/74; PULSE 88; RESP 18; TEMP 36.6; O2SAT 95
[2024-09-11 13:22] VITALS: BP 121/74; PULSE 88; RESP 18; TEMP 36.6; O2SAT 95
== END 2024-09-11 13:24 ==
PROVIDERS: Physician Assistant; Physician Assistant Medical; Emergency Provider Emergency Medicine; PCP Physician Assistant
DX: M54.50 Low back pain, unspecified (principal); I10 Essential (primary) hypertension; M79.605 Pain in left leg; R26.81 Unsteadiness on feet; Z11.52 Encounter for screening for COVID-19; Z79.899 Other long term (current) drug therapy
CPT/HCPCS: 36415; 72131; 80053; 81003; 83735; 85025; 85652; 86140; 87635; 96374; 96376; 97162; 99285; J2270

== ENCOUNTER 2024-10-23 13:47 | Outpatient (AMB) | payer OTHER, SELFPAY ==
--- NOTE | 2024-10-23 13:48 | MHC.PC.OV ---
Intake Visit Reasons: covid symptoms Intake Note: Patient is here to follow up on Covid Symptoms (dry cough, diarrhea, body pain, sore throat, congestion, Chest pain and chills). Positive home covid test. 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 Specifications Control Assistant: Not Required per policy Accompanied by: Self / Same As Patient Allergies No Known Allergies Allergy (Verified 10/23/24 14:07) Medication List - Last Reconciled 10/23/24 by Radha Abdalla PA-C alprazolam 4 mg PO BEDTIME amlodipine 2.5 mg PO DAILY 90 days baclofen 20 mg PO BID 30 days blood pressure kit-extra large As directed cane As directed cholecalciferol (vitamin D3) 125 mcg PO DAILY 90 days CPAP (CPAP Machine/Device) As directed cyanocobalamin (vitamin B-12) (Vitamin B-12) 2,000 mcg PO DAILY divalproex (Depakote) 250 mg PO BID gabapentin 1,600 mg PO BID hydroxyzine HCl 50 mg PO Q6H PRN lidocaine 4% 1 patch topical DAILY PRN metoprolol succinate ER 50 mg PO DAILY 90 days nirmatrelvir-ritonavir 300 mg (150 mg x 2)-100 mg (Paxlovid) take TWO 150 mg tablets of nirmatrelvir with ONE 100 mg tablet of ritonavir twice daily for 5 days PO prazosin 1 mg PO BEDTIME risperidone (Risperdal) 1 mg PO BID tramadol 50 mg PO BID PRN 30 days trazodone 50 mg PO BEDTIME PRN Tobacco use date assessed: 12/20/23 Dental Screening Dental Screen Date: 12/20/23 HPI HPI Comments History of Present Illness Details This is a 59-year-old male seen through a telehealth visit with complaints of URI symptoms that started yesterday worse today. He reports subjective fevers, chills, fatigue, malaise, headaches, nasal congestion/rhinorrhea, cough with intermittent thin yellow-colored sputum, lung/chest wall pain with coughing and diarrhea. He reports he had at home COVID test performed today which was positive. His tested positive for COVID as well. He is currently taking naproxen for his pains. He denies any measured fevers, nausea/vomiting, abdominal pain or any other symptoms complaints or concerns at this time. [facility] Medical History Hx MRSA infection Obstructive sleep apnea Morbid obesity Chronic pain syndrome Postlaminectomy syndrome Hepatitis C Surgical History Hx of colonoscopy History of esophagogastroduodenoscopy (EGD) S/P insertion of spinal cord stimulator History of surgery History of laminectomy Family History Father Chronic mental illness Mental health disorder Mother No problems noted. Maternal Grandmother No problems noted. Maternal Grandfather No problems noted. Paternal Grandmother No problems noted. Paternal Grandfather No problems noted. 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 Marcos Crandall, Imani Jo, Nehemias Mckeon and colleagues, with an educational fernanda from [employer]. Review of Systems Const All systems reviewed & are unremarkable except as noted in HPI and below Physical exam (Primary Care) Tobacco/Smoking Status: Tobacco use Status Tobacco use date assessed 12/20/23 10/23/24 13:52 Patient Tobacco Use Status Current everyday Tobacco 10/23/24 13:52 Tobacco use type Cigarette 10/23/24 13:52 e-Cigarette/Vaping Use Never Used 10/23/24 13:52 Thrive Assessment: Date of Thrive Assessment Date Thrive assessed 12/20/23 10/23/24 13:52 Telehealth Telehealth Telehealth Platform: Telephone Location of provider rendering services: practice address Location of patient: address on file Patient Identification confirmed using: Name, : Yes Telehealth method: voice only Patient verbally consented to treatment: Yes Patient verbally consented to billing insurance company: Yes Patient informed of any privacy concerns related to visit: Yes Minutes spent on Phone/Video with Pt.: 15 Coding Level of Care Code Tele Est Pt Level 4 (53857) Complex EM visit Add On G2211 Diagnoses SARS-CoV-2 positive U07.1 Assessment & Plan Assessment & Plan (1) SARS-CoV-2 positive: Code(s): U07.1 - COVID-19 Category: Medical Plan Patient had an at-home COVID test that was positive today. also tested positive. Patient will be sent in Paxlovid to his pharmacy. Patient instructed to continue Naprosyn or Tylenol for his body pains. Patient instructed to call us or go to the emergency department if he develops fevers that are uncontrolled with Motrin Tylenol, nausea, vomiting, shortness of breath or any worsening symptoms. Patient understood and agree with the plan. Medications: New nirmatrelvir-ritonavir 300 mg (150 mg x 2)-100 mg (Paxlovid) take TWO 150 mg tablets of nirmatrelvir with ONE 100 mg tablet of ritonavir twice daily for 5 days PO 30 ea 0RF covid positive
== END 2024-10-23 15:59 | disposition home or self-care (01) ==
LOC: HO.HMCH 13:47
PROVIDERS: PCP Physician Assistant; Visit Provider Internal Medicine
DX: U07.1 COVID-19 (principal)

== ENCOUNTER 2024-10-31 11:37 | Outpatient (AMB) | payer OTHER, SELFPAY ==
[2024-10-31 13:19] VITALS: BP 92/62; PULSE 68; O2SAT 93; BMI 34.3
--- NOTE | 2024-10-31 13:19 | MHC.PC.OV ---
Vital Signs 10/31/24 13:19 Height 6 ft 1 in Weight 260 lb BMI 34.3 BP 92/62 Blood Pressure Location Lt brachial Position Sitting Pulse 68 Pulse Source Pulse Oximeter Pulse Oximetry (%) 93 Oxygen Delivery Method Room Air Intake Visit Reasons: f/u Anxiety / pain managment. Intake Note: The patient is here following a fall last night around 8 PM while going up the stairs. The patient missed the last step with their left leg, resulting in a fall and rolling down the stairs. They are now experiencing right chest pain, possibly indicative of rib pain or a fracture, along with shortness of breath, bilateral arm weakness, and bilateral knee pain. The patient reports being unable to dress independently and requires assistance from their spouse. The patient is requesting a wheelchair, a portable toilet, and a shower bench. 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 Accompanied by: Self / Same As Patient Allergies No Known Allergies Allergy (Verified 10/31/24 13:50) Medication List - Last Reconciled 10/31/24 by Kaiden Bell PA-C alprazolam 4 mg PO BEDTIME amlodipine 2.5 mg PO DAILY 90 days baclofen 20 mg PO BID 30 days blood pressure kit-extra large As directed cane As directed cholecalciferol (vitamin D3) 125 mcg PO DAILY 90 days CPAP (CPAP Machine/Device) As directed cyanocobalamin (vitamin B-12) (Vitamin B-12) 2,000 mcg PO DAILY divalproex (Depakote) 250 mg PO BID gabapentin 1,600 mg PO BID hydroxyzine HCl 50 mg PO Q6H PRN lidocaine 4% 1 patch topical DAILY PRN metoprolol succinate ER 50 mg PO DAILY 90 days prazosin 1 mg PO BEDTIME risperidone (Risperdal) 1 mg PO BID tramadol 50 mg PO BID PRN 30 days trazodone 50 mg PO BEDTIME PRN Tobacco use date assessed: 12/20/23 Dental Screening Dental Screen Date: 12/20/23 HPI f/u Anxiety / pain managment. HPI Details Patient is 58-year-old male here today for a follow up. Patient has a past medical history significant for hypertension, hyperlipidemia, generalized anxiety disorder, lumbar disc disease with radiculopathy down bilateral lower extremities. Presenting recently hospitalized for psychiatrist. He does admit to having suicidal ideation and attempted to jump from a 3rd floor though this is unclear. He denies any med changes done by the hospital. He also reports recently falling down a few steps adding on his right side of his ribs causing some acute pain. Chronic lumbar spine pain: Now followed by Dr. Zuniga. Has spoken with and been evaluated by spinal stimulator representatives and had Maze some adjustments that seems to have been helpful in reducing his pain. 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 Pain management--> The continues on tramadol 50 mg b.i.d. though feels it has been helpful. He has adjustments in his neuro spine stimulator which he feels has taken somewhat of a effect on reducing his pain. .. Anxiety: Now has PCP managing his anxiety medication. He continues to speak with a mental health therapist on a weekly basis He has been able to reduce his benzodiazepine dosage down to 4 mg alprazolam daily. We did discuss the habit-forming nature of benzodiazepines and he does understand. He is agreeable to continue weaning down benzodiazepine dose HE STILL CONTINUES TO BE MOTIVATED TO WEAN OFF OF BENZODIAZEPINES PLAN: Current plan is to reduce his alprazolam dose to 1 mg b.i.d.. We did discuss perhaps switching to a longer-acting benzodiazepine such as clonazepam. .. Hypertension: Patient's blood pressure on the low side today in office. He continues with the use of amlodipine. . He will continue on amlodipine at current dose. Advised to monitor blood pressure at home with goal blood pressure to be above 100/60 in below 140/90 [facility] Medical History Hx MRSA infection Obstructive sleep apnea Morbid obesity Chronic pain syndrome Postlaminectomy syndrome Hepatitis C Surgical History Hx of colonoscopy History of esophagogastroduodenoscopy (EGD) S/P insertion of spinal cord stimulator History of surgery History of laminectomy Family History Father Chronic mental illness Mental health disorder Mother No problems noted. Maternal Grandmother No problems noted. Maternal Grandfather No problems noted. Paternal Grandmother No problems noted. Paternal Grandfather No problems noted. 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 Marcos Crandall, Imani Jo, Nehemias Mckeon and colleagues, with an educational fernanda from [employer]. Review of Systems Const Denies headache(s) Eyes Denies loss of vision ENT Denies vertigo, Denies dizziness, Denies headache(s) and Denies sore throat Card Denies chest pain, Denies leg edema and Denies lightheadedness Resp Denies cough, Denies hemoptysis and Denies wheezing GI Denies abdominal pain, Denies melena, Denies constipation, Denies diarrhea and Denies vomiting Denies dysuria, Denies urinary frequency and Denies urinary urgency Musc Denies arthralgias, Denies joint swelling, Denies numbness and Denies tingling Neuro Denies Abnormal speech present, Denies behavioral changes, Denies vertigo, Denies dizziness, Denies headache(s), Denies loss of vision, Denies memory loss, Denies numbness and Denies tingling Psych Denies anxiety, Denies behavioral changes, Denies depression, Denies memory loss and Denies panic attacks Bradley/Lymph Denies easy bleeding and Denies easy bruising Aller/Immun Denies wheezing Physical exam (Primary Care) Vital Signs: Last Vital Signs Pulse 68 10/31/24 13:19 BP 92/62 10/31/24 13:19 Pulse Ox 93 10/31/24 13:19 Oxygen Delivery Method Room Air 10/31/24 13:19 BMI result Body Mass Index 34.3 Tobacco/Smoking Status: Tobacco use Status Tobacco use date assessed 12/20/23 10/31/24 13:22 Patient Tobacco Use Status Current everyday Tobacco 10/31/24 13:22 Tobacco use type Cigarette 10/31/24 13:22 e-Cigarette/Vaping Use Never Used 10/31/24 13:22 Thrive Assessment: Date of Thrive Assessment Date Thrive assessed 12/20/23 10/31/24 13:22 Const General: healthy appearing, no acute distress, alert and awake Nutritional Appearance: well nourished Orientation/consciousness: oriented to person, oriented to place and oriented to time HENMT Ears: TM's normal bilaterally General nose exam: Normal nasal mucous membranes and turbinates present Eyes Conjunctivae: conjunctivae normal Sclerae: sclerae normal Pupils: Equal, round and reactive pupils present Neck Neck: Yes no lymphadenopathy and Yes no JVD Thyroid: Thyroid normal Carotids: no bruits Resp Effort & Inspection: normal respiratory effort and not tachypneic Auscultation: no crackles, no rales, no rhonchi and no wheezes Cardio Rate: regular rate Rhythm: regular rhythm Heart sounds: no murmurs and normal S1 and S2 GI Palpation (GI): Soft to palpation, nontender, no hepatomegaly and no splenomegaly Auscultation: normal bowel sounds Back/Spine/Pelvis Other: LIMITED RANGE OF MOTION OF THE LUMBAR SPINE DUE TO PAIN AND STIFFNESS. PATIENT AMBULATING WITH AN ANTALGIC GAIT AND A CANE FOR ASSISTANCE. Skin General skin exam: no rashes or lesions noted and dry skin Neuro General: oriented to person, oriented to place and oriented to time Cranial nerves: Yes Equal, round and reactive pupils present Speech: No Abnormal speech present Gait exam (Neuro): Normal gait present Motor exam (neuro): no tremor noted Extrem Right upper extremity: full ROM Left upper extremity: full ROM Right lower extremity: full ROM; no edema Left lower extremity: full ROM; no edema Psych Mental Status: mental status grossly normal Speech and movement: Normal speech and movement present Affect: normal affect Attitude: cooperative Thought process: Normal thought process present Coding Level of Care Code Est Pt Level 4 (81471) Diagnoses Spinal stenosis of lumbar region with neurogenic claudication M48.062 Neurogenic claudication status: with neurogenic claudication CONTRERAS (generalized anxiety disorder) F41.1 MDD (major depressive disorder), recurrent episode, moderate F33.1 Rib pain on right side R07.81 Chronic pain of both knees M25.561; M25.562; G89.29 Chronicity: chronic Assessment & Plan Assessment & Plan (1) Lumbar spinal stenosis: Code(s): M48.061 - Spinal stenosis, lumbar region without neurogenic claudication Category: Medical Qualifiers: Neurogenic claudication status: with neurogenic claudication Qualified Code(s): M48.062 - Spinal stenosis, lumbar region with neurogenic claudication Plan: Patient continues to have lower lumbar spine pain, does report some weakness in his lower extremities that he relates to knee issue as well. He is interested in seeing noninvasive spine practice here in [place]. He does have a spinal stimulator in place he mentions he would like removed (2) CONTRERAS (generalized anxiety disorder): Code(s): F41.1 - Generalized anxiety disorder Category: Medical Plan: Patient is currently weaning benzodiazepine. He is willing to reduce his alprazolam dose to 1 mg b.i.d.. (3) MDD (major depressive disorder), recurrent episode, moderate: Code(s): F33.1 - Major depressive disorder, recurrent, moderate Category: Medical Plan: Continues to talk to a mental health therapist on a weekly basis. Recent hospitalization for psychiatric crisis a few weeks ago. New medication changes noted (4) Rib pain on right side: Code(s): R07.81 - Pleurodynia Category: Medical Plan: Reports he fell yesterday injuring his right ribs and reports severe pain over his right ribs. No breathing issues at this point. He is asking for short term script of oxycodone which helps him usually in his acute phase pain. (5) Bilateral knee pain: Code(s): M25.561 - Pain in right knee; M25.562 - Pain in left knee Category: Medical Qualifiers: Chronicity: chronic Qualified Code(s): M25.561 - Pain in right knee; M25.562 - Pain in left knee; G89.29 - Other chronic pain Plan: Patient reporting bilateral knee pain since his fall. Also reporting some knee laxity and giving out sensation which has caused him some falls. He is willing to get x-rays of his knees to start the workup process. Orders: Orders XR knee RT 3V Today M25.561 - Pain in right knee, M25.562 - Pain in left knee XR knee LT 3V Today M25.561 - Pain in right knee, M25.562 - Pain in left knee XR ribs RT min 3V w CXR1V Today R07.81 - Pleurodynia Medications: New miscellaneous medical supply 1 ea miscellaneous DAILY 99 days 1 ea 0RF M48.062 - Spinal stenosis, lumbar region with neurogenic claudication nystatin 1 appl topical DAILY 30 days 30 grams 1RF R21 - Rash and other nonspecific skin eruption tizanidine 2 mg PO Q8H 30 days PRN 90 tabs 1RF muscle spasticity M48.062 - Spinal stenosis, lumbar region with neurogenic claudication alprazolam 1 mg PO BID 30 days 60 tabs 1RF F41.1 - Generalized anxiety disorder oxycodone Partial Fill upon patient request. 5 mg PO DAILY 5 days 5 tabs 0RF pain R07.81 - Pleurodynia Changed From gabapentin 1,600 mg PO BID M48.062 - Spinal stenosis, lumbar region with neurogenic claudication To gabapentin 1,600 mg (2 x 800 mg) PO BID 30 days 120 tabs 1RF M48.062 - Spinal stenosis, lumbar region with neurogenic claudication Discontinued baclofen Discontinued Reason: Doctor's Order 20 mg PO BID 30 days 60 tabs 3RF M51.16 - Intervertebral disc disorders with radiculopathy, lumbar region
== END 2024-10-31 14:19 | disposition home or self-care (01) ==
PROVIDERS: PCP Physician Assistant; Visit Provider Physician Assistant
DX: M48.062 Spinal stenosis, lumbar region with neurogenic claudication (principal); F41.1 Generalized anxiety disorder; F33.1 Major depressive disorder, recurrent, moderate; R07.81 Pleurodynia; M25.561 Pain in right knee; M25.562 Pain in left knee; G89.29 Other chronic pain

== ENCOUNTER 2024-10-31 11:37 | Outpatient (REF) | payer OTHER, SELFPAY ==
--- NOTE | ~2024-10-31 | XR_ITS ---
EXAMINATION: XR KNEE RIGHT; XR KNEE LEFT; XR RIBS WITH CHEST RIGHT CLINICAL INFORMATION: Pain in right knee M25.561. Best possible images obtained due to patient condition and limited ROM. Pleurodynia. COMPARISON: XR Chest 03/05/2021 TECHNIQUE: 8 images of right ribs, 2 images of right knee and 2 images of left knee. FINDINGS: Left knee: There is mild loss of medial and patellofemoral compartment joint space. The lateral compartment joint space is preserved. Fragmented enthesophytes are seen along the superior patella. Minimal joint effusion. No loose bodies. No acute fracture or dislocation. Right knee: There is mild loss of medial and paravertebral compartment joint space with periocular spurring. No loose bodies seen. Minimal suprapatellar preoperative or joint effusion No acute fracture or dislocation. The soft tissues are normal. No lytic or sclerotic process seen. Chest and right RIBS: The lungs are hypoexpanded and clear acute process. Heart size and vascularity is normal. Minimally displaced fractures of right lateral fifth, fourth ribs are noted. There is no pneumothorax or pleural effusion. Posterior intraspinal electrodes are seen in the lower dorsal spine. XR/XR knee LT 2V IMPRESSION: Degenerative changes medial compartment bilateral knees. Fragmentation of enthesophytes of left knee are noted superior to patella. Minimal bilateral joint effusion. There are displaced fracture right lateral fifth and fourth ribs. No pneumothorax or pleural effusion. The lungs are hypoexpanded but clear.. Electronically signed by: Jerardo Reyes MD 11/03/2024 02:59 PM EST
--- NOTE | ~2024-10-31 | XR_ITS ---
EXAMINATION: XR KNEE RIGHT; XR KNEE LEFT; XR RIBS WITH CHEST RIGHT CLINICAL INFORMATION: Pain in right knee M25.561. Best possible images obtained due to patient condition and limited ROM. Pleurodynia. COMPARISON: XR Chest 03/05/2021 TECHNIQUE: 8 images of right ribs, 2 images of right knee and 2 images of left knee. FINDINGS: Left knee: There is mild loss of medial and patellofemoral compartment joint space. The lateral compartment joint space is preserved. Fragmented enthesophytes are seen along the superior patella. Minimal joint effusion. No loose bodies. No acute fracture or dislocation. Right knee: There is mild loss of medial and paravertebral compartment joint space with periocular spurring. No loose bodies seen. Minimal suprapatellar preoperative or joint effusion No acute fracture or dislocation. The soft tissues are normal. No lytic or sclerotic process seen. Chest and right RIBS: The lungs are hypoexpanded and clear acute process. Heart size and vascularity is normal. Minimally displaced fractures of right lateral fifth, fourth ribs are noted. There is no pneumothorax or pleural effusion. Posterior intraspinal electrodes are seen in the lower dorsal spine. XR/XR knee RT 2V IMPRESSION: Degenerative changes medial compartment bilateral knees. Fragmentation of enthesophytes of left knee are noted superior to patella. Minimal bilateral joint effusion. There are displaced fracture right lateral fifth and fourth ribs. No pneumothorax or pleural effusion. The lungs are hypoexpanded but clear.. Electronically signed by: Jerardo Reyes MD 11/03/2024 02:59 PM EST
--- NOTE | ~2024-10-31 | XR_ITS ---
EXAMINATION: XR KNEE RIGHT; XR KNEE LEFT; XR RIBS WITH CHEST RIGHT CLINICAL INFORMATION: Pain in right knee M25.561. Best possible images obtained due to patient condition and limited ROM. Pleurodynia. COMPARISON: XR Chest 03/05/2021 TECHNIQUE: 8 images of right ribs, 2 images of right knee and 2 images of left knee. FINDINGS: Left knee: There is mild loss of medial and patellofemoral compartment joint space. The lateral compartment joint space is preserved. Fragmented enthesophytes are seen along the superior patella. Minimal joint effusion. No loose bodies. No acute fracture or dislocation. Right knee: There is mild loss of medial and paravertebral compartment joint space with periocular spurring. No loose bodies seen. Minimal suprapatellar preoperative or joint effusion No acute fracture or dislocation. The soft tissues are normal. No lytic or sclerotic process seen. Chest and right RIBS: The lungs are hypoexpanded and clear acute process. Heart size and vascularity is normal. Minimally displaced fractures of right lateral fifth, fourth ribs are noted. There is no pneumothorax or pleural effusion. Posterior intraspinal electrodes are seen in the lower dorsal spine. XR/XR ribs RT min 3V w CXR1V IMPRESSION: Degenerative changes medial compartment bilateral knees. Fragmentation of enthesophytes of left knee are noted superior to patella. Minimal bilateral joint effusion. There are displaced fracture right lateral fifth and fourth ribs. No pneumothorax or pleural effusion. The lungs are hypoexpanded but clear.. Electronically signed by: Jerardo Reyes MD 11/03/2024 02:59 PM EST
== END 2024-10-31 11:38 | disposition home or self-care (01) ==
LOC: HO.XRAY 11:37
PROVIDERS: PCP Physician Assistant; Visit Provider Physician Assistant
DX: M48.062 Spinal stenosis, lumbar region with neurogenic claudication (principal); F41.1 Generalized anxiety disorder; F33.1 Major depressive disorder, recurrent, moderate; R07.81 Pleurodynia; G89.29 Other chronic pain; M25.561 Pain in right knee; M25.562 Pain in left knee; Z91.81 History of falling
CPT/HCPCS: 71101; 73560; 99212

== ENCOUNTER → 2024-10-31 11:37 | Outpatient (BNV) | payer OTHER, SELFPAY | PROVIDERS: PCP Physician Assistant; Visit Provider Radiology Diagnostic Radiology | DX: R07.81 Pleurodynia (principal); M25.561 Pain in right knee; M25.562 Pain in left knee | CPT/HCPCS: 71101; 73560 ==

== ENCOUNTER 2024-11-03 10:28 | Emergency (ER) | payer OTHER, SELFPAY ==
--- NOTE | ~2024-11-03 | XR_ITS ---
EXAMINATION: XR CHEST CLINICAL INFORMATION: CP COMPARISON: Chest with right RIBS 10/31/2024. TECHNIQUE: 2 views of the chest were obtained. FINDINGS: The lungs are hypoexpanded and clear acute process. Heart size and vascularity is normal. There are fractures involving right fifth and sixth rib on the previous exam. There are unchanged. There is mild right lateral pleural thickening. Heart size and pulmonary vascularity is normal. The paraspinal electrodes in the lower dorsal spine. Electrodes XR/XR chest 2V IMPRESSION: Hypoexpanded lungs without acute process. Electronically signed by: Jerardo Reyes MD 11/03/2024 02:47 PM EST
--- NOTE | 2024-11-03 10:29 | ECG_ITS ---
Test Reason : CP Blood Pressure : / mmHG Vent. Rate : 080 BPM Atrial Rate : 080 BPM P-R Int : 164 ms QRS Dur : 092 ms QT Int : 372 ms P-R-T Axes : 015 -15 015 degrees QTc Int : 429 ms Normal sinus rhythm Inferior infarct (cited on or before 03-NOV-2024) Abnormal ECG When compared with ECG of 05-MAR-2021 08:45, No significant change was found Referred By: Generic ED Physician Electronically Signed By:Solomon Baker
[2024-11-03 10:44] LABS: MANUAL DIFF FLAG NO
[2024-11-03 10:46] LABS: Basophils Absolute Auto 0.1 X10*3/uL (0.0-0.2); Basophils Percent Auto 1.3 % (0-2); Eosinophils Absolute Auto 0.3 X10*3/uL (0.0-0.4); Eosinophils Percent Auto 4.2 % (0-4); Hematocrit 39.9 % (42.0-52.0); Hemoglobin 12.2 g/dl (14.0-18.0); Imm Gran Abs Auto 0.01 X10*3/uL (0.00-0.03); Imm Gran Pct Auto 0.2 % (0.0-0.4); Lymphocytes Absolute Auto 1.8 X10*3/uL (1.2-4.9); Mean Corpuscular HGB Conc 30.6 g/dl (31.0-36.0); Mean Corpuscular Hemoglobin 23.2 pg (27.0-33.0); Monocytes Absolute Auto 0.6 X10*3/uL (0.1-1.2); Monocytes Percent Auto 9.4 % (2-11); Neutrophils Absolute Auto 3.6 x10*3/uL (2.0-8.3); Neutrophils Percent Auto 56.9 % (45-73); Platelet Count 323 X10*3/uL (160-400); Red Blood Count 5.25 X10*6/uL (4.60-5.80); White Blood Count 6.3 X10*3/uL (4.8-10.8)
[2024-11-03 10:57] LABS: Anion Gap 15 (12-20); Blood Urea Nitrogen 28 mg/dL (9-16); Calcium 9.3 mg/dL (8.4-10.2); Carbon Dioxide 27 mmol/L (22-29); Chloride 106 mmol/L (96-108); Estimated Glomerular Filt Rate > 60; Glucose Random 110 mg/dL (60-115); Potassium 3.5 mmol/L (3.3-5.1); Sodium 144 mmol/L (135-145)
[2024-11-03 11:18] VITALS: BP 98/72; PULSE 80; RESP 16; TEMP 36.2; O2SAT 96; BMI 35.3
--- NOTE | 2024-11-03 12:57 | ED_ITS ---
HPI - General Adult General Chief complaint: General Medical Stated complaint: chest pain Time Seen by Provider: 11/03/24 12:56 Source: patient Mode of arrival: ambulatory Limitations: no limitations History of Present Illness ED Provider: Mili Mercedes PA-C HPI narrative: Patient is a 59 year old assigned male at with a history of MDD, CONTRERAS, lumbar spinal stenosis, GERD, HTN, asthma, chronic pain syndrome, and a nerve stimulator in his spine presenting to the emergency department today with body pain after a fall. Patient states that on 10/30/2024 he fell and saw his PCP on 10/31/2024 who ordered x-rays and gave the patient 5mg Oxycodone's for break through pain. Patient states that the oxycodone is not helping. Patient states that he is prescribed gabapentin and tramadol at baseline and has a referral to the pain clinic coming up. Patient denies any dizziness, lightheadedness, abdominal pain, nausea, vomiting, fever, chills, blurry vision, double vision, loss of vision, chest pain, difficulty breathing, shortness of breath, night sweats, pain with urination, increased urinary frequency, increased urinary urgency, blood in his urine or stool, syncope or a near syncopal episode, bowel incontinence, bladder incontinence, or any other complaints at this time. Relieving factors: none Exacerbating factors: movement Associated symptoms: denies other symptoms Treatments prior to arrival: other (5mg Oxycodone) Related Data Home Medications ?Medication ?Instructions ?Recorded ?Confirmed cyanocobalamin (vitamin B-12) 2,000 mcg PO DAILY 09/10/24 10/31/24 1,000 mcg tablet (Vitamin B-12) divalproex 250 mg tablet,delayed 250 mg PO BID 09/10/24 10/31/24 release (Depakote) hydroxyzine HCl 50 mg tablet 50 mg PO Q6H PRN anxiety 09/10/24 10/31/24 lidocaine 4 % topical patch 1 patch topical DAILY PRN Pain 09/10/24 10/31/24 prazosin 1 mg capsule 1 mg PO BEDTIME 09/10/24 10/31/24 risperidone 1 mg tablet (Risperdal) 1 mg PO BID 09/10/24 10/31/24 trazodone 50 mg tablet 50 mg PO BEDTIME PRN Sleep 09/10/24 10/31/24 Previous Rx's ?Medication ?Instructions ?Recorded blood pressure kit-extra large #1 ea 06/29/21 cane #1 ea 06/02/22 CPAP (CPAP Machine/Device) #1 ea 01/09/23 cholecalciferol (vitamin D3) 125 125 mcg PO DAILY 90 days #90 caps 04/22/24 mcg (5,000 unit) capsule amlodipine 2.5 mg tablet 2.5 mg PO DAILY 90 days #90 tabs 09/02/24 metoprolol succinate 50 mg 50 mg PO DAILY 90 days #90 tabs 09/02/24 tablet,extended release 24 hr tramadol 50 mg tablet 50 mg PO BID PRN pain 30 days #60 09/02/24 tabs alprazolam 1 mg tablet 1 mg PO BID 30 days #60 tabs 10/31/24 gabapentin 800 mg tablet 1,600 mg (2 x 800 mg) PO BID 30 10/31/24 days #120 tabs miscellaneous medical supply 1 ea miscellaneous DAILY 99 days 10/31/24 #1 ea nystatin 100,000 unit/gram topical 1 appl topical DAILY 30 days #30 10/31/24 cream grams oxycodone 5 mg tablet 5 mg PO DAILY pain 5 days #5 tabs 10/31/24 tizanidine 2 mg tablet 2 mg PO Q8H PRN muscle spasticity 10/31/24 30 days #90 tabs Allergies Allergy/AdvReac Type Severity Reaction Status Date / Time No Known Allergies Allergy Verified 11/03/24 11:29 Review of Systems 2 Constitutional: Constitutional: Reports no additional constitutional complaints, Denies chills, Denies fever(s) and Denies night sweats Eyes: Eyes: Reports no additional eye complaints, Denies blurry vision, Denies change in vision, Denies diplopia, Denies eye discharge, Denies loss of vision and Denies eye pain ENT: Denies dizziness Cardiovascular: Cardiovascular: Reports no additional cardiovascular complaints, Denies chest pain, Denies lightheadedness, Denies Loss of Consciousness and Denies dyspnea Respiratory: Respiratory: Reports no additional respiratory complaints and Denies dyspnea Gastrointestinal: Gastrointestinal: Reports no additional gastrointestinal complaints, Denies abdominal pain, Denies melena, Denies hematochezia, Denies change in bowel habits and Denies change in stool character Genitourinary: Genitourinary: Reports no additional male genitourinary complaints, Denies hematuria, Denies oliguria, Denies difficulty urinating, Denies dysuria, Denies urinary frequency, Denies urinary hesitancy, Denies urinary incontinence and Denies urinary urgency Musculoskeletal: Musculoskeletal: Reports no additional musculoskeletal complaints, Denies numbness and Denies tingling Comments: body pain bilateral knee pain rib pain chest pain Neurologic: Denies dizziness, Denies loss of vision, Denies numbness and Denies tingling Psychiatric: Psychiatric: Reports no additional psychiatric complaints Endocrine: Endocrine: Reports no additional endocrine complaints Hematologic/Lymphatic: Hematologic/Lymphatic: Reports no additional hematologic/lymphatic complaints Allergic/Immunologic: Allergic/Immunologic: Reports no additional allergic/immunologic complaints PMFSH Past Medical History Attestation statement: The following information was validated with the patient. Source: old records reviewed and nursing notes reviewed Medical History Hx MRSA infection Obstructive sleep apnea Morbid obesity Chronic pain syndrome Postlaminectomy syndrome Hepatitis C Surgical History Hx of colonoscopy History of esophagogastroduodenoscopy (EGD) S/P insertion of spinal cord stimulator History of surgery History of laminectomy Family History Family History Father Chronic mental illness Mental health disorder Mother No problems noted. Maternal Grandmother No problems noted. Maternal Grandfather No problems noted. Paternal Grandmother No problems noted. Paternal Grandfather No problems noted. 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 [employer] Cognitive needs: No Hearing needs: No Vision needs: Yes (glasses ) Physical Exam ED Vital Signs: Vital Signs - 24 hr 11/03/24 11:18 11/03/24 14:00 11/03/24 14:40 Temperature 97.2 F 97.7 F Pulse Rate 80 65 Respiratory Rate 16 20 16 Blood Pressure 98/72 101/67 Pulse Oximetry 96 99 Oxygen Delivery Method Room Air Room Air BMI result Body Mass Index 35.3 Const General: cooperative, no acute distress, alert and awake Nutritional Appearance: well nourished Orientation/consciousness: patient oriented x3 Limitations: no limitations HENMT Head: Yes normal to inspection and Yes atraumatic Ears: hearing grossly normal bilaterally and external ears normal General nose exam: Normal external nose present, no nasal discharge noted and no epistaxis Face and sinus: Yes normal facial exam, No abrasion and No laceration Mouth: Normal oral and palatal mucosa present, no drooling and no muffled voice Eyes General: appearance normal, both eyes and all related structures Periorbital: periorbital findings normal Eyelids: Yes eyelids normal Conjunctivae: conjunctivae normal Pupils: Equal, round and reactive pupils present EOM: EOMs intact bilaterally Neck Neck: Yes normal visual inspection, Yes full ROM and Yes no lymphadenopathy Chest Other: pain with palpation to the right chest Chest palpation & inspection: normal inspection of the chest Resp Effort & Inspection: normal respiratory effort and able to speak in complete sentences GI Inspection: Yes normal to inspection Neuro General: patient oriented x3 and moves all extremities Cranial nerves: Yes Equal, round and reactive pupils present Cognition (Neuro): normal cognition Extrem General: Yes normal to inspection, Yes full ROM and Yes capillary refill normal Psych Appearance: grossly normal Mental Status: mental status grossly normal Affect: normal affect Attitude: cooperative Thought process: Normal thought process present Thought content: Normal thought content present Insight: Good insight present (Psych) Medications Administered Discontinued Medications Generic Name Dose Route Start Last Admin Trade Name Freq PRN Reason Stop Dose Admin Hydromorphone HCl 0.5 mg 11/03/24 13:10 11/03/24 14:40 Hydromorphone Hcl 0.5 Mg/0.5 Ml Syringe IVPUSH 11/03/24 13:11 0.5 mg ONCE ONE Administration Protocol Midazolam HCl 2 mg 11/03/24 13:10 11/03/24 14:41 Midazolam Hcl/Pf 2 Mg/2 Ml Vial IVPUSH 11/03/24 13:11 2 mg ONCE ONE Administration Medical Decision Making Medical Decision Making [facility] Narrative: Patient is a 59 year old assigned male at with a history of MDD, CONTRERAS, lumbar spinal stenosis, GERD, HTN, asthma, chronic pain syndrome, and a nerve stimulator in his spine presenting to the emergency department today with body pain after a fall. Patient's physical exam was as noted in the physical exam portion of this note. Patient's blood work was unremarkable. Patient's EKG showed no acute process. Patient's bilateral knee x-rays showed no acute process. Patient's right ribs x-ray showed a displaced right lateral 5th and 4th rib fracture. Patient's chest x-ray showed no acute process. I explained my physical exam findings as well as all test results to the patient. I answered all questions asked by the patient. Patient was given IV Versed and Dilaudid which he stated helped his pain significantly. I stressed the importance of the patient taking his medication as directed (either prescribed or as the over the counter packaging recommends). I stressed the importance of the patient following up with his primary care provider. I stressed the importance of the patient returning to the emergency department immediately if his symptoms were to worsen or if he were to develop any dizziness, shortness of breath, difficulty breathing, chest pain, blurry vision, loss of vision, nausea, vomiting, abdominal pain, fever, chills, back pain, or any other complaints. Patient verbalized agreement and understanding with this treatment plan and discharge. Differential Diagnosis Differential Diagnoses: The differential diagnosis associated with the presentation includes Acute on chronic pain Right rib fracture Fall Chest pain Admission/Observation Consideration of admission/observation: Escalation of care including admission/observation considered Patient would have been admitted to the hospital had his work up had any findings where hospital admission was appropriate and his clinical presentation warranted hospital admission. Lab Data [facility] Lab Attestation statement: I reviewed the patient's lab results. My interpretation of these results are in the MDM Rationale portion of this note. 11/03/24 10:40 11/03/24 10:40 Labs: Lab Results 11/03/24 Range/Units 10:40 WBC 6.3 (4.8-10.8) X10*3/uL RBC 5.25 (4.60-5.80) X10*6/uL Hgb 12.2 L (14.0-18.0) g/dl Hct 39.9 L (42.0-52.0) % MCV 76.0 L (80.0-98.0) fL MCH 23.2 L (27.0-33.0) pg MCHC 30.6 L (31.0-36.0) g/dl RDW 16.0 (11.0-16.0) % Plt Count 323 D (160-400) X10*3/uL MPV 10.0 (9.4-12.4) fL Immature Gran % (Auto) 0.2 (0.0-0.4) % Neut % (Auto) 56.9 (45-73) % Lymph % (Auto) 28.0 (20-40) % Stone % (Auto) 9.4 (2-11) % Eos % (Auto) 4.2 H (0-4) % Baso % (Auto) 1.3 (0-2) % Lymph # (Auto) 1.8 (1.2-4.9) X10*3/uL Stone # (Auto) 0.6 (0.1-1.2) X10*3/uL Eos # (Auto) 0.3 (0.0-0.4) X10*3/uL Baso # (Auto) 0.1 (0.0-0.2) X10*3/uL Abs Immat Gran (auto) 0.01 (0.00-0.03) X10*3/uL Absolute Neuts (auto) 3.6 (2.0-8.3) x10*3/uL Absolute Nucleated RBC 0.000 (0.0-0.012) X10*3/uL Nucleated RBC % (auto) 0.0 (0.0-0.2) /100WBC Sodium 144 (135-145) mmol/L Potassium 3.5 (3.3-5.1) mmol/L Chloride 106 (96-108) mmol/L Carbon Dioxide 27 (22-29) mmol/L Anion Gap 15 (12-20) BUN 28 H (9-16) mg/dL Creatinine 1.04 (0.5-1.4) mg/dL Estim Creat Clear Calc TNP Estimated GFR > 60 Random Glucose 110 (60-115) mg/dL Calcium 9.3 (8.4-10.2) mg/dL Troponin I High Sens 4.0 (<3.5-35.0) ng/L Independent Interpretation I performed an independent interpretation of an: EKG and Plain X-Ray Interpretation: My interpretation is in agreement with the radiologist's impression of these imaging studies. L EXAMINATION: XR KNEE RIGHT; XR KNEE LEFT; XR RIBS WITH CHEST RIGHT CLINICAL INFORMATION: Pain in right knee M25.561. Best possible images obtained due to patient condition and limited ROM. Pleurodynia. COMPARISON: XR Chest 03/05/2021 TECHNIQUE: 8 images of right ribs, 2 images of right knee and 2 images of left knee. FINDINGS: Left knee: There is mild loss of medial and patellofemoral compartment joint space. The lateral compartment joint space is preserved. Fragmented enthesophytes are seen along the superior patella. Minimal joint effusion. No loose bodies. No acute fracture or dislocation. Right knee: There is mild loss of medial and paravertebral compartment joint space with periocular spurring. No loose bodies seen. Minimal suprapatellar preoperative or joint effusion No acute fracture or dislocation. The soft tissues are normal. No lytic or sclerotic process seen. Chest and right RIBS: The lungs are hypoexpanded and clear acute process. Heart size and vascularity is normal. Minimally displaced fractures of right lateral fifth, fourth ribs are noted. There is no pneumothorax or pleural effusion. Posterior intraspinal electrodes are seen in the lower dorsal spine. XR/XR knee RT 2V IMPRESSION: Degenerative changes medial compartment bilateral knees. Fragmentation of enthesophytes of left knee are noted superior to patella. Minimal bilateral joint effusion. There are displaced fracture right lateral fifth and fourth ribs. No pneumothorax or pleural effusion. The lungs are hypoexpanded but clear.. Electronically signed by: Jerardo Reyes MD 11/03/2024 02:59 PM [facility] [place] Dictated By: Jerardo Reyes MD Signed By: Electronically signed by Jerardo Reyes MD 11/03/24 1459 EXAMINATION: XR CHEST CLINICAL INFORMATION: CP COMPARISON: Chest with right RIBS 10/31/2024. TECHNIQUE: 2 views of the chest were obtained. FINDINGS: The lungs are hypoexpanded and clear acute process. Heart size and vascularity is normal. There are fractures involving right fifth and sixth rib on the previous exam. There are unchanged. There is mild right lateral pleural thickening. Heart size and pulmonary vascularity is normal. The paraspinal electrodes in the lower dorsal spine. Electrodes. XR/XR chest 2V IMPRESSION: Hypoexpanded lungs without acute process. Electronically signed by: Jerardo Reyes MD 11/03/2024 02:47 PM EST Dictated By: Jerardo Reyes MD Signed By: Electronically signed by Jerardo Reyes MD 11/03/24 1447 Vent. Rate: 080 BPM Atrial Rate: 080 BPM P-R Int: 164 ms QRS Dur: 092 ms QT Int: 372 ms P-R-T Axes: 015 -15 015 degrees QTc Int: 429 ms Normal sinus rhythm Inferior infarct (cited on or before 03-NOV-2024) When compared with ECG of 05-MAR-2021 08:45, No significant change was found DD/ 1033 Radiology Impression Discussion of test interpretation with radiology: I have reviewed the radiologist's reading. Discharge Plan Discharge Clinical Impression: Closed rib fracture, Fall Patient Disposition: Home, Self-Care Instructions: Rib Fracture (ED), Fall Prevention for Older Adults (ED) Additional Instructions: Follow up with your primary care provider. Return to the emergency department immediately if your symptoms worsen or if you develop any dizziness, shortness of breath, difficulty breathing, chest pain, blurry vision, loss of vision, nausea, vomiting, abdominal pain, fever, chills, back pain, or any other complaints. Prescriptions: No Action (DME) CPAP Machine/Device Device See Rx Instructions .Route Qty: 1 0RF Rx Instructions: As directed divalproex [Depakote] 250 mg Tablet,Delayed Release (Dr/Ec) 250 mg PO BID trazodone 50 mg Tablet 50 mg PO BEDTIME PRN (Reason: Sleep) lidocaine 4 % Adhesive Patch,Medicated 1 patch TOPICAL DAILY PRN (Reason: Pain) prazosin 1 mg Capsule 1 mg PO BEDTIME cyanocobalamin (vitamin B-12) [Vitamin B-12] 1,000 mcg Tablet 2,000 mcg PO DAILY hydroxyzine HCl 50 mg tablet 50 mg PO Q6H PRN (Reason: anxiety) risperidone [Risperdal] 1 mg Tablet 1 mg PO BID (DME) blood pressure kit-extra large Kit See Rx Instructions .Route Qty: 1 0RF Rx Instructions: As directed cholecalciferol (vitamin D3) 125 mcg (5,000 unit) capsule 125 mcg PO DAILY 90 Days Qty: 90 1RF (DME) cane Device See Rx Instructions .Route Qty: 1 0RF Rx Instructions: As directed tramadol 50 mg tablet 50 mg PO BID PRN (Reason: pain) 30 Days Qty: 60 3RF amlodipine 2.5 mg tablet 2.5 mg PO DAILY 90 Days Qty: 90 1RF metoprolol succinate 50 mg tablet extended release 24 hr 50 mg PO DAILY 90 Days Qty: 90 1RF miscellaneous medical supply Misc 1 ea miscellaneous DAILY 99 Days Qty: 1 0RF alprazolam 1 mg tablet 1 mg PO BID 30 Days Qty: 60 1RF nystatin 100,000 unit/gram cream 1 appl topical DAILY 30 Days Qty: 30 1RF oxycodone 5 mg tablet 5 mg PO DAILY 5 Days Qty: 5 0RF Rx Instructions: Partial Fill upon patient request. gabapentin 800 mg tablet 1,600 mg PO BID 30 Days Qty: 120 1RF tizanidine 2 mg tablet 2 mg PO Q8H PRN (Reason: muscle spasticity) 30 Days Qty: 90 1RF Referrals: Kaiden Bell PA-C [Primary Care Provider] - Print Language: Slovak
--- NOTE | 2024-11-03 13:51 | PC.NURSE ---
Unable to gain IV access after attempts x2. Another RN attempting via US
[2024-11-03 14:00] VITALS: BP 101/67; PULSE 65; RESP 20; TEMP 36.5; O2SAT 99
[2024-11-03 14:40] VITALS: RESP 16
[2024-11-03] MEDS: HYDROmorphone HCl 0.5 MG/0.5 ML SYRINGE IVPUSH (14:40)
[2024-11-03] MEDS: Midazolam HCl/PF 2 MG/2 ML VIAL IVPUSH (14:41)
[2024-11-03 15:27] VITALS: BP 98/67; PULSE 68; RESP 18; TEMP 36.4; O2SAT 94
--- NOTE | 2024-11-03 15:51 | PC.NURSE ---
Told pt. that he is now up for discharge. Pt. stating I would like to speak with the PCP here about what medications I'm going home with . RAYMUNDO Alvarez aware
--- NOTE | 2024-11-03 16:09 | PC.NURSE ---
Pt. reporting to this RN that he took a Xanax prior to coming because he knew the care was going to be delayed and that he would have to wait a long time. Also states that [facility] made a huge error in putting in his Neurostimulator device, and wants it out. Pt. also expresses dissatisfaction that he was not offered an MRI today, and that [facility], [facility], or [facility] keep repeating his x-rays
--- NOTE | 2024-11-03 16:56 | PC.NURSE ---
Provider unable to speak with pt. at time of d/c.
[2024-11-03 17:08] VITALS: BP 98/67; PULSE 68; RESP 18; TEMP 36.4; O2SAT 94
== END 2024-11-03 17:10 | disposition home or self-care (01) ==
PROVIDERS: Emergency Provider Emergency Medicine Emergency Medical Services; PCP Physician Assistant
DX: S22.41XA Multiple fractures of ribs, right side, initial encounter for closed fracture (principal); R07.89 Other chest pain; M25.561 Pain in right knee; W19.XXXA Unspecified fall, initial encounter; Y93.89 Activity, other specified; Y92.89 Other specified places as the place of occurrence of the external cause; Y99.8 Other external cause status; Z79.899 Other long term (current) drug therapy
CPT/HCPCS: 36415; 71046; 80048; 84484; 85025; 93005; 96374; 96375; 99284; J1171; J2250

== ENCOUNTER → 2024-11-03 10:29 | Outpatient (BNV) | payer OTHER, SELFPAY | PROVIDERS: Emergency Provider Emergency Medicine Emergency Medical Services; PCP Physician Assistant; Visit Provider Internal Medicine Cardiovascular Disease | DX: R94.31 Abnormal electrocardiogram [ECG] [EKG] (principal) | CPT/HCPCS: 93010 ==

== ENCOUNTER → 2024-11-03 13:43 | Outpatient (BNV) | payer OTHER, SELFPAY | PROVIDERS: Emergency Provider Emergency Medicine Emergency Medical Services; PCP Physician Assistant; Visit Provider Radiology Diagnostic Radiology | DX: R07.9 Chest pain, unspecified (principal) | CPT/HCPCS: 71046 ==

== ENCOUNTER 2024-11-11 08:19 | Outpatient (AMB) | payer OTHER, SELFPAY ==
--- NOTE | 2024-11-11 08:24 | MHC.OFFVIS ---
Vital Signs 11/11/24 08:33 Height 6 ft Weight 260 lb BMI 35.3 BP 125/62 Blood Pressure Location Lt brachial Position Sitting Pulse 67 Pulse Source Pulse Oximeter Pulse Oximetry (%) 98 Oxygen Delivery Method Room Air Intake Visit Reasons: Discuss CT Scan Results Intake Note: Pain today 07/23 Roller Staker Required: No Accompanied by: Self / Same As Patient Allergies No Known Allergies Allergy (Verified 11/03/24 11:29) HPI Comments Details: Patient is a pleasant 59-year-old male presents today to discuss most recent lumbar spine CT scan results and potential spinal cord stimulator removal. He was last seen in our office by Dr. Humphrey in January 2024 and has completed lumbar CT in February and August of this year. He continues to report no pain relief or function improvement with [employer] SCS device and then had multiple program adjustments with [employer] representatives without any success. Patient also suffers from lumbar spinal stenosis related pain which increases with ADLs, walking, sleeping, movements, sneezing or coughing. Patient reports the pain is mostly radiates to the right side and at times today left lower extremity with associated numbness, tingling, burning sensations and weakness. He ambulates with slow, antalgic gait and uses cane for support. Patient request neurosurgery referral for lumbar spinal stenosis pain. Patient also reports he was recently seen at [facility] on 11/03/24 after he fell at his apartment downstairs and injure his left side of the back. He reports oxycodone has been partially relieving his symptoms. Patient was also seen at ER on 09/10/2024 for chronic low back pain. Recent imaging of the right ribs x-ray showed a displaced right lateral 5th and 4th rib fracture and chest x-ray was normal. He rates his pain at 9/10. Patient denies any fever or chills, cough, infection, bladder or bowel dysfunction or saddle anesthesia. PRIOR 01/19/24 Dr. Humphrey: 58-year-old male who presents today to the office for an evaluation of intervertebral disc disorder with radiculopathy. The patient has a past medical history of significant lumbar disc disease with radiculopathy down bilateral lower extremities. He has seen pain management in the past and received a permanent [employer] spinal stimulator in 2018, though he lost his effectiveness. He noticed annoying vibrating sensations from the SCS device to his legs and back region. He states that Dr. Owen changed the device battery and program from [employer] to [employer]. Since then he feels his pain has significantly worsened and he lost all therapeutic effect from his device. He followed up with Dr. Zuniga at [facility] and had an x-ray, but they were unable to decide whether to remove or leave the device. He is currently taking gabapentin, meloxicam, baclofen, tramadol 50 mg b.i.d., and naproxen with minimal to no relief. He has tried oxycodone 5 mg for seven days in the past. He reports a loss of sensation in his leg and in the perineum. He reports decreasing control of his bowel and bladder associated with leg weakness that has been progressively worsening over the past 4 months. He also reports lack of sensation in his penis, though his history is notable for ED secondary to arterial insufficiency. He is thinking about filling out the FMLA form to be able to retire from work since he is unable to continue with his pain issues. [facility] Medical History Hx MRSA infection Obstructive sleep apnea Morbid obesity Chronic pain syndrome Postlaminectomy syndrome Hepatitis C Surgical History Hx of colonoscopy History of esophagogastroduodenoscopy (EGD) S/P insertion of spinal cord stimulator History of surgery History of laminectomy Family History Father Chronic mental illness Mental health disorder Mother No problems noted. Maternal Grandmother No problems noted. Maternal Grandfather No problems noted. Paternal Grandmother No problems noted. Paternal Grandfather No problems noted. 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 Alert and oriented. Mood and affect appropriate. Follows and participates in conversation appropriately. Respiratory effort is unlabored. Able to transition from sit to stand unassisted. Uses cane with ambulation. Ambulates with bilaterally normal heel strike and toe off. Chest Chest palpation & inspection: normal inspection of the chest and tenderness rib right Back/Spine/Pelvis Back: back tenderness (left) Cervical Spine: cervical muscular tenderness, pain with cervical ROM and No Cervical spine tenderness Thoracic/Lumbar Spine: thoracic and lumbar spine normal to inspection, Thoracic/lumbar spine scar(s), Lasegue's sign positive (right>left) bilateral and localized, paraspinal muscle tenderness on the left greater than right, thoraco-lumbar ROM limited, No thoracic spinal tenderness, lumbar spinal tenderness at L3, at L4 and at L5 and straight leg raise positive bilateral at 50 degrees Sacroiliac joints: bilaterally tender to palpation Extrem General: Yes capillary refill normal, Yes no clubbing, cyanosis or edema and Yes no calf tenderness Results Reviewed Results Reviewed: CT LUMBAR SPINE WITHOUT CONTRAST 09/10/24 CLINICAL INFORMATION: Back pain COMPARISON: 03/07/2024 FINDINGS: SEGMENT BLOCK LAYER: Lumbar spine surgical hardware, spinal stimulator. Cholecystectomy clips. Fecal retention. LUMBAR SPINE: Spinal stimulator device. There is straightening of normal lordosis and unchanged moderate thoracolumbar scoliosis. Of a 12 Overall vertebral bodies are maintained in height with fusion of L2 and L3. Multilevel spurring, endplate sclerosis and disc space narrowings. No paravertebral soft tissue swelling or abnormal soft tissue collections. Right-sided transpedicular screws L2 and L4 with posterior stabilizing surgical hardware are stable in position. No evidence of loosening or failure. T11/12: No neuroforaminal or spinal canal narrowings. T12/L1: Decreased disc space again seen spurring and endplate sclerosis. Mild left-sided disc bulge. No significant thecal sac compression or neuroforaminal compromise. L1/L2: Disc space narrowing with vacuum disc phenomenon. Mild left sided disc bulge. No significant spinal canal or neuroforaminal compromise. L2/L3: Near-total obliteration of the disc space with unchanged right-sided L2 on L3 displacement. No significant thecal sac compression. Bilateral L3 laminectomies and spinous process resections again seen. L3/L4: Facet hypertrophy with mild thecal sac compression. Bilateral L4 postlaminectomy changes and spinous process resections. L4/L5: Disc space narrowing with vacuum disc phenomenon. Unchanged moderately severe thecal sac compression with ligamentum flavum, facet hypertrophy and spurring. Redemonstration right neuroforaminal compromise. L5/S1: Bulging disc. Mild thecal sac compression with ligamentum flavum and facet hypertrophy. No significant neuroforaminal narrowings. OTHER FINDINGS: Vascular calcifications nonaneurysmal aorta. Tortuous iliac arteries. Caliber inferior vena cava. 4.5 cm left renal cyst. IMPRESSION: 1. No acute bony pathology lumbar spine or interval change. 2. Unchanged lumbar lordotic straightening, scoliosis and multilevel degenerative changes. 3. Redemonstration moderately severe thecal sac compression L4-5 with right-sided neural foraminal compromise in the setting of stable postoperative changes. CT lumbar spine wo IV con 03/07/24 IMPRESSION: 1. No evidence of acute fracture or dislocation. 2. Moderate T12-L1 dextroscoliosis and moderate L4-L5 levoscoliosis. 3. Status post right lateral L3 and L4 laminectomies, resection of spinous processes, right-sided L1-L2 and L3-L4 posterior fixation with transpedicular screws and vertical bars. 4. Marked right-sided L2-L3 spondylolisthesis. 5. Marked asymmetric stenosis of the right L4-L5 neural foramen. 6. In spite of the decompression, there is persistent moderate spinal stenosis at L4-L5 due to impingement by hypertrophic ligamentum flavum. 7. Multilevel advanced lumbar spondylosis. XR KNEE RIGHT; XR KNEE LEFT; XR RIBS WITH CHEST RIGHT 10/31/24 CLINICAL INFORMATION: Pain in right knee M25.561. Best possible images obtained due to patient condition and limited ROM. Pleurodynia. COMPARISON: XR Chest 03/05/2021 TECHNIQUE: 8 images of right ribs, 2 images of right knee and 2 images of left knee. FINDINGS: Left knee: There is mild loss of medial and patellofemoral compartment joint space. The lateral compartment joint space is preserved. Fragmented enthesophytes are seen along the superior patella. Minimal joint effusion. No loose bodies. No acute fracture or dislocation. Right knee: There is mild loss of medial and paravertebral compartment joint space with periocular spurring. No loose bodies seen. Minimal suprapatellar preoperative or joint effusion No acute fracture or dislocation. The soft tissues are normal. No lytic or sclerotic process seen. Chest and right RIBS: The lungs are hypoexpanded and clear acute process. Heart size and vascularity is normal. Minimally displaced fractures of right lateral fifth, fourth ribs are noted. There is no pneumothorax or pleural effusion. Posterior intraspinal electrodes are seen in the lower dorsal spine. IMPRESSION: Degenerative changes medial compartment bilateral knees. Fragmentation of enthesophytes of left knee are noted superior to patella. Minimal bilateral joint effusion. There are displaced fracture right lateral fifth and fourth ribs. No pneumothorax or pleural effusion. The lungs are hypoexpanded but clear.. Assessment & Plan Assessment & Plan (1) Lumbar disc disease with radiculopathy: Comment: PATIENT HAS A LONG HISTORY LUMBAR DISC DISEASE Code(s): M51.16 - Intervertebral disc disorders with radiculopathy, lumbar region Category: Medical (2) Lumbar spinal stenosis: Code(s): M48.061 - Spinal stenosis, lumbar region without neurogenic claudication Category: Medical Qualifiers: Neurogenic claudication status: with neurogenic claudication Qualified Code(s): M48.062 - Spinal stenosis, lumbar region with neurogenic claudication (3) Postlaminectomy syndrome: Code(s): M96.1 - Postlaminectomy syndrome, not elsewhere classified Category: Medical (4) Failed spinal cord stimulator: Code(s): T85.192A - Other mechanical complication of implanted electronic neurostimulator of spinal cord electrode (lead), initial encounter Category: Medical Plan Schedule lumbar spinal cord stimulator device removal with sedation and fluoroscopy. Expectations, risks and benefits were reviewed. Patient is aware he will be contacted to schedule this procedure. [facility] referral for neurosurgical evaluation for lumbar spinal stenosis related pain. Script provided for Spontorol [place] for acute on chronic low back pain with bilateral radiculopathy and bilateral lower extremity weakness. Patient is aware to call if pain worsens or if he develops any red flag symptoms to seek emergency care. All questions were answered and the patient is in agreement of plan. Follow-up after injections and sooner as needed. Orders: Referrals Neuro Spine Referral M48.062 - Spinal stenosis, lumbar region with neurogenic claudication Medications: New methylprednisolone (Medrol ([place])) PO PER PKG DIR 21 ea 0RF pain M48.062 - Spinal stenosis, lumbar region with neurogenic claudication, M51.16 - Intervertebral disc disorders with radiculopathy, lumbar region methylprednisolone (Medrol ([place])) PO PER PKG DIR 21 ea 0RF pain M48.062 - Spinal stenosis, lumbar region with neurogenic claudication, M51.16 - Intervertebral disc disorders with radiculopathy, lumbar region Coding Level of Care Code Est Pt Level 4 (62292) Complex EM visit Add On G2211 Diagnoses Lumbar disc disease with radiculopathy M51.16 Spinal stenosis of lumbar region with neurogenic claudication M48.062 Neurogenic claudication status: with neurogenic claudication Postlaminectomy syndrome M96.1 Failed spinal cord stimulator T85.192A
[2024-11-11 08:33] VITALS: BP 125/62; PULSE 67; O2SAT 98; BMI 35.3
== END 2024-11-11 08:57 | disposition home or self-care (01) ==
PROVIDERS: PCP Physician Assistant; Visit Provider Nurse Practitioner Family
DX: M51.16 Intervertebral disc disorders with radiculopathy, lumbar region (principal); M48.062 Spinal stenosis, lumbar region with neurogenic claudication; M96.1 Postlaminectomy syndrome, not elsewhere classified; T85.192A Other mechanical complication of implanted electronic neurostimulator of spinal cord electrode (lead), initial encounter
CPT/HCPCS: 99214; G2211

== ENCOUNTER → 2024-11-11 08:19 | Outpatient (BNVA) | payer OTHER, SELFPAY | PROVIDERS: PCP Physician Assistant; Visit Provider Internal Medicine | DX: M51.16 Intervertebral disc disorders with radiculopathy, lumbar region (principal); M48.062 Spinal stenosis, lumbar region with neurogenic claudication; G89.4 Chronic pain syndrome; M96.1 Postlaminectomy syndrome, not elsewhere classified; Z96.82 Presence of neurostimulator; T85.192A Other mechanical complication of implanted electronic neurostimulator of spinal cord electrode (lead), initial encounter | CPT/HCPCS: 99212 ==